=== PATIENT | male | born 1940 | race Caucasian/White ===

== ENCOUNTER → 2016-10-13 | Day surgery (SDC) | payer BC ==
[2016-10-13] VITALS (8 sets, daily range): BP systolic 126–167; BP diastolic 85–110; PULSE 85–110; TEMP 36.7; O2SAT 86–100; Ht 177.8 cm; Wt 82.0 kg
[~2016-10-13] VITALS: Ht 177.8 cm; Wt 82.0 kg
[~2016-10-13] MED LIST: APR50 PO; ASPI81TA28 PO; CYAN10004 PO; DOCU100C31 PO; FINA5TAB PO; FLNIN NAE; LNX25 PO; LOSA50TA6 PO; METO1TAB69 PO; MULT-188 PO; NAPR1CAP7 PO; OMEP20TA PO; POLY335025 PO; RIVA1TAB4 PO; SIMV10TA2 PO
--- NOTE | 2016-10-13 07:19 | History & Physical Bridge Note ---
H&P Re-Evaluation Bridge Note: I have examined the patient, reviewed the History & Physical and in the interval since the performance of the History & Physical I have noted the following changes of clinical significance: Patient started on dronedarone and stopped digoxin.
--- NOTE | 2016-10-13 07:39 | Discharge Instructions ---
Discharge Instructions Date of Service Oct 13, 2016. Admission Reason for Admission: A Fib * To Do W/Anesthesia Discharge Discharge Diagnosis / Problem: Atrial fibrillation Discharge Goals Goal(s): Improve function Activity Recommendations Activity Limitations: resume your previous activity Lifting Limitations: none Exercise/Sports Limitations: none May Resume Sexual Activity: when tolerated Shower/Bathe: no limitations Driving or Machine Use: resume 1 day after discharge . Current Hospital Diet Patient's current hospital diet: Discharge Diet Recommended Diet: Regular Diet, Low Sodium Diet (2gm Na) Fluid Restriction: None Pending Studies Studies pending at discharge: no Medical Emergencies . Who to Call and When: Medical Emergencies: If at any time you feel your situation is an emergency, please call 911 immediately. . Non-Emergent Contact Non-Emergency issues call your: Sheet Metal Apprentice . . "Provider Documentation" section prepared by Gee Stevens. VTE Core Measure Inpt VTE Proph given/why not?: Other Anticoagulation
--- NOTE | 2016-10-13 07:43 | Anesthesiology Progress Note ---
Anesthesia Post Op Note Date & Time Oct 13, 2016 at 07:43 Vital Signs Pain Intensity: 0 Vital Signs Past 12 Hours Date Time Temp Pulse Resp B/P Pulse Ox O2 Delivery O2 Flow Rate FiO2 10/13/16 07:34 110 16 126/85 99 Nasal Cannula 4 10/13/16 07:34 82 16 119/79 96 Room Air 10/13/16 07:30 110 16 134/87 99 Nasal Cannula 4 10/13/16 07:27 110 16 145/90 99 Nasal Cannula 4 10/13/16 07:26 110 16 145/90 99 Nasal Cannula 4 10/13/16 07:25 110 16 145/90 99 Nasal Cannula 4 10/13/16 07:23 110 16 167/110 99 Nasal Cannula 4 10/13/16 07:11 36.7 100 16 139/95 100 Nasal Cannula 4 Notes Mental Status: alert / awake / arousable, participated in evaluation Pt Amnestic to Procedure: Yes Nausea / Vomiting: adequately controlled Pain: adequately controlled Airway Patency, RR, SpO2: stable & adequate BP & HR: stable & adequate Hydration State: stable & adequate Anesthetic Complications: no major complications apparent
--- NOTE | 2016-10-13 08:56 | CARDIOVERSION ---
DATE OF OPERATION: 10/13/2016 PROCEDURE PERFORMED: Electrocardioversion. STAFF GENERAL DUTY NURSE: Dr. Kamar Stevens. INDICATION: Mr. Kimberlyn Ventura is a 76-year-old gentleman who was diagnosed with atrial fibrillation several months ago. He had 1 prior attempt at cardioversion which was unsuccessful. The patient has recently been started on dronedarone in the hopes that this would improve efficacy. PROCEDURE IN DETAIL: The patient was informed of risks, benefits and alternatives to the intended procedure. He understood such and wished to proceed. He was taken to the cardiac catheterization suite in fasting state. General anesthetic was subsequently administered by the anesthesiology service and once appropriately anesthetized the patient underwent initial cardioversion with 200 joules. This returned him to sinus rhythm but he quickly reverted back to atrial fibrillation. Two additional attempts to convert him back to sinus rhythm were unsuccessful at 360 joules. Following the procedure the patient was conscious without evidence of complication. IMPRESSION: Cardioversion to normal sinus rhythm with early return to atrial fibrillation. I attest to the content of the Intraoperative Record and any orders documented therein. Any exceptio ns are noted below.
--- NOTE | 2017-03-13 18:35 | Procedure Note ---
Procedure Note Date of Service October 13, 2016. Procedure Note Procedure performed: Electrical cardioversion Staff medical office worker: Indication: Persistent and symptomatic atrial fibrillation Procedure in detail The patient was informed of the risks benefits and alternatives to the intended procedure. He is brought to the cardiac catheterization holding area. A general anesthetic was administered by the Anesthesiology Service. Once appropriately anesthetized, the patient underwent cardioversion using a biphasic waveform. Patient was noted to be neurologically intact subsequent to the procedure there were no immediate complications. Impression: Successful cardioversion from atrial fibrillation normal sinus rhythm
== END | disposition home or self-care (01) ==
LOC: C.CATH 06:20
PROVIDERS: ATTEND Internal Medicine Clinical Cardiac Electrophysiology
DX: I48.91 Unspecified atrial fibrillation (principal)

== ENCOUNTER → 2016-11-30 | Outpatient (CLI) | payer BC ==
[~2016-11-30] MED LIST changes: +AMIO200T4 PO; +CALC600T9 PO; +FLUT50SP37 NAE; -LNX25 PO; +METO100T44 PO; -METO1TAB69 PO; +NAPR1TAB9 PO; +POLY335019 PO; +VITAMIN B12 PO
[2016-11-30 11:20] LABS: BASO % 0.4 %; BASO ABS # 0.03 K/uL (0-0.2); COMPLETE YES; EOS % 1.2 %; HEMATOCRIT 52.1 % (42-52); IG% 0.1 %; LYMPH ABS # 1.83 K/uL (1.2-3.4); MEAN CELL VOLUME 93.5 fL (80-100); MEAN CORPUSCULAR HEMOGLOBIN 31.1 pg (25-34); MEAN CORPUSCULAR HGB CONC 33.2 g/dl (32-36); MEAN PLATELET VOLUME 10.9 fL (7.4-10.4); MONO % 9.7 %; NEUT % 63.6 %; PLATELET COUNT 240 K/uL (130-400); RED BLOOD COUNT 5.57 M/uL (4.7-6.1); WHITE BLOOD COUNT 7.31 K/uL (4.8-10.8)
[2016-11-30 11:39] LABS: ALT/SGPT 29 U/L (12-78); AST/SGOT 25 U/L (15-37); BLOOD UREA NITROGEN 19 mg/dl (7-18); BUN/CREATININE RATIO 15.5 (10-20); CARBON DIOXIDE 31 mmol/L (21-32); CHLORIDE 101 mmol/L (98-107); CHOLESTEROL 155 mg/dl (0-200); GLUCOSE 94 mg/dl (70-99); POTASSIUM 4.4 mmol/L (3.5-5.1); SODIUM 136 mmol/L (136-145)
[2016-11-30 11:42] LABS: CHOLESTEROL/HDL RATIO 2.8; HDL CHOLESTEROL 56 mg/dl; LDL CHOLESTEROL CALCULATED 89 mg/dl; TRIGLYCERIDES 52 mg/dl (0-150); VERY LOW DENSITY LIPOPROT CALC 10 mg/dl
[2016-11-30 11:43] LABS: ESTIMATED AVERAGE GLUCOSE 120 mg/dl; HA1C FLAG Normal (Normal)
[2016-11-30 11:44] LABS: CALCIUM 9.5 mg/dl (8.5-10.1)
--- NOTE | 2016-12-13 11:50 | CODING QUERY MEDICAL NECESSITY ---
SUPPORTING DIAGNOSIS NEEDED Dr. Sullivan, A supporting diagnosis is required for the test/procedure performed on this patient in order for us to be reimbursed by the patient's insurance. Please provide a supporting diagnosis for the following test/procedure listed below next to the test name along with your signature. *If there is no additional diagnosis for this patient that would support the following test/procedure please document that below next to the test/procedure. Test(s)/Procedure(s) that require a supporting diagnosis: * ([id number]) VITAMIN D ASSAY DIAGNOSIS: * ([id number]) B12 VITAMIN LEVEL DIAGNOSIS: DATE OF SERVICE: 11/30/16 Provider Signature: Date: Thank you Demarcus Parks [facility] Information Management Once completed, please kindly fax back to [phone] For questions please call [phone]
== END | disposition home or self-care (01) ==
LOC: C.LABBC 07:18
PROVIDERS: ATTEND Internal Medicine
DX: R53.83 Other fatigue (principal); R73.9 Hyperglycemia, unspecified; E78.00 Pure hypercholesterolemia, unspecified; E55.9 Vitamin D deficiency, unspecified

== ENCOUNTER → 2017-06-04 | Outpatient (CLI) | payer BC ==
[2017-06-04 10:46] LABS: BASO % 0.3 %; BASO ABS # 0.02 K/uL (0-0.2); COMPLETE YES; EOS % 1.4 %; HEMATOCRIT 52.3 % (42-52); IG% 0.2 %; LYMPH % 30.8 %; LYMPH ABS # 1.79 K/uL (1.2-3.4); MEAN CELL VOLUME 95.3 fL (80-100); MEAN CORPUSCULAR HEMOGLOBIN 32.4 pg (25-34); MEAN PLATELET VOLUME 10.7 fL (7.4-10.4); MONO % 8.4 %; NEUT % 58.9 %; PLATELET COUNT 195 K/uL (130-400); RED BLOOD COUNT 5.49 M/uL (4.7-6.1); WHITE BLOOD COUNT 5.82 K/uL (4.8-10.8)
[2017-06-04 10:54] LABS: ALT/SGPT 37 U/L (12-78); AST/SGOT 34 U/L (15-37); BLOOD UREA NITROGEN 20 mg/dl (7-18); BUN/CREATININE RATIO 17.5 (10-20); CALCIUM 9.1 mg/dl (8.5-10.1); CARBON DIOXIDE 34 mmol/L (21-32); CHLORIDE 101 mmol/L (98-107); CREATININE 1.15 mg/dl (0.60-1.40); GLUCOSE 98 mg/dl (70-99); POTASSIUM 4.4 mmol/L (3.5-5.1); SODIUM 137 mmol/L (136-145)
[2017-06-04 11:04] LABS: ALB/GLOB RATIO 1.1 (0.9-2); ALKALINE PHOSPHATASE 45 U/L (45-117)
== END | disposition home or self-care (01) ==
LOC: C.LABBC 08:19
PROVIDERS: ATTEND Internal Medicine
DX: I48.91 Unspecified atrial fibrillation (principal); E55.9 Vitamin D deficiency, unspecified

== ENCOUNTER → 2017-06-27 | Day surgery (SDC) | payer BC ==
[2017-06-07 08:49] VITALS: Ht 177.8 cm; Wt 77.3 kg
[~2017-06-27] VITALS: Ht 177.8 cm; Wt 77.3 kg
[~2017-06-27] MED LIST changes: +500ML BSS 0.3ML EPI 1:1000PF IRRIG ONE; +ACETAMINOPHEN 325 MG TAB PO PRN; +AMVISC PLUS 0.8ML SYRINGE INT OCU ONE; -APR50 PO; -ASPI81TA28 PO; +ATROPINE SULFATE 0.1 MG/ML 5ML SYR IV PRN; +AcetaZOLAMIDE 250 MG TAB PO SCH; +BETAXOLOL HCL 0.25% OP SUSP PER DROP CHARGE OPR SCH; +BRIMONIDINE TART 0.2% OP SOLN PER DROP CHARGE ONE; +BSS FLUSH ONE; -CYAN10004 PO; +ENDOCOAT 0.85ML SYRINGE INT OCU ONE; +EpHEDrine SULFATE INJ 50 MG/ML AMP IV PRN; +EpINEphrine INJ 1MG/ML AMP 1 MG/ML AMP ONE; -FLNIN NAE; +LACTATED RINGER'S 1000ML 500 ML IV SCH; +LIDOCAINE 4% OP SOLN DROP CHARGE ONE; +LIDOCAINE 4% OP SOLN DROP CHARGE OPR SCH; +LIDOCAINE HCL 1% MPF 2 ML VIAL ONE; -METO100T44 PO; +MIDAZOLAM HCL 1 MG/ML 2ML VIAL ONE; +MIX: 4ML BSS 1ML EPI 1:1000 PF INSTIL ONE; +MOXIFLOXACIN OPH SOLN PER DROP CHARGE ONE; -NAPR1CAP7 PO; +OCUCOAT 1 ML SOLN IO ONE; -POLY335025 PO; +POVIDONE-IODINE OP SOLN 30 ML BTL ONE; +PROPARACAINE 0.5% OP SOLN PER DROP CHARGE OPR SCH; +TOBRAMYCIN/DEXAMETHASONE OPH OINT PER APPLN CHARGE ONE
--- NOTE | 2017-06-27 09:22 | History & Physical Bridge - [place] ---
H&P Re-Evaluation Bridge Note: I have examined the patient, reviewed the History & Physical and in the interval since the performance of the History & Physical I have noted the following changes of clinical significance: No changes noted
[2017-06-27] MEDS: PHENYLEPHRINE HCL 2.5% OP SOLN PER DROP CHARGE OPR SCH ×2 (09:25→09:30)
[2017-06-27] MEDS: TROPICAMIDE 1% OP SOLN PER DROP CHARGE OPR SCH ×2 (09:26→09:31)
[2017-06-27] MEDS: CYCLOPENTOLATE HCL 1% OP SOLN PER DROP CHARGE OPR SCH ×2 (09:27→09:32)
[2017-06-27] MEDS: MOXIFLOXACIN OPH SOLN PER DROP CHARGE OPR SCH ×2 (09:28→09:38)
--- NOTE | 2017-06-27 10:17 | Discharge Instructions-SurgCtr ---
Discharge Instructions Date of Service Jun 27, 2017. Visit Reason for Visit: Cataract Right Eye Discharge Discharge Diagnosis / Problem: lens implant right eye Discharge Goals Goal(s): Improve function Activity Recommendations Activity Limitations: resume your previous activity Lifting Limitations: no more than 10 pounds Exercise/Sports Limitations: gradually increase as tolerated May Resume Sexual Activity: when tolerated Shower/Bathe: tomorrow Driving or Machine Use: resume 1 day after discharge Anesthesia . Post Anesthesia Instructions: If you have had General Anesthesia or IV Sedation: * Do not drive today. * Resume driving when surgeon permits. * Do not make important decisions or sign legal documents today. * Call surgeon for: 1. Temperature elevations greater than 101 degrees F. 2. Uncontrollable pain. 3. Excessive bleeding. 4. Persistent nausea and vomiting. 5. Medication intolerance (nausea, vomiting or rash). * For nausea and vomiting use only clear liquids such as: tea, soda, bouillon until nausea subsides, then gradually increase diet as tolerated. * If you have any concerns or questions, call your surgeon's office. If physician is unavailable and it is an emergency, call 911 or go to the nearest emergency room. . Instructions / Follow-Up Instructions / Follow-Up ACTIVITY RECOMMENDATIONS: * Light activities. * Mild irritation and blurred vision are common for the first few days. * You may walk outside, read, watch television. * Redness around the white part of the eye is common. MEDICATIONS: Resume previous medications unless instructed otherwise by your surgeon. * Take white Diamox (Acetazolamide) tablet at 1 pm today. Start all eye drops at 1 pm today: * Eye drops (today and tomorrow): Prednisone - one drop in operative eye every 3 hours while awake Ofloxacin - one drop in operative eye every 3 hours while awake Prolensa - one drop in operative eye once daily SPECIAL CARE INSTRUCTIONS: * Tape plastic shield over eye to sleep at night. Call your doctor at with any concerns or problems. FOLLOW UP VISIT: Follow-up with Dr Hurst at [place] office as scheduled. Diet Recommendations Home Diet: no limitations Procedures Procedures Performed: cataract extraction with lens implant Pending Studies Studies pending at discharge: no Medical Emergencies . Who to Call and When: Medical Emergencies: If at any time you feel your situation is an emergency, please call 911 immediately. . Non-Emergent Contact Non-Emergency issues call your: Fraud Examiner Call Non-Emergent contact if: your pain is not controlled [phone] . . "Provider Documentation" section prepared by Fabian Hurst. .
--- NOTE | 2017-06-27 10:19 | [facility] Operative Report ---
Operative Report Date of Service Jun 27, 2017. Operative Report 1. PREOPERATIVE DIAGNOSIS: Senile nuclear cataract, right eye. 2. POSTOPERATIVE DIAGNOSIS: Senile nuclear cataract, right eye. 3. PROCEDURE: Phacoemulsification of right cataract with posterior chamber lens implant, type [employer], model MX60, power +22.0 diopters. ANESTHESIA: Local standby. SURGEON: Dr. Hurst. COMPLICATIONS: None. OPERATING TIME: 10 minutes. 4. OPERATION AND FINDINGS: DESCRIPTION OF PROCEDURE: The right pupil was dilated. The anesthetic was administered using a topical technique. The right eye was prepped and draped. A speculum was placed. A clear corneal incision was formed. The chamber was filled with Amvisc Plus and Endocoat. Epinephrine solution was used. A paracentesis was placed. A capsulorrhexis was performed. The nucleus was hydrodissected. A dense lens was removed with phacoemulsification. Time was 7.24 seconds. The aspiration unit was used to remove the cortex. The capsule was filled with Amvisc Plus. The lens implant was folded and placed into the capsule. The incision was hydrated. The Amvisc was aspirated. The wound was secure. The chamber was deep. The pupil was round. Brimonidine, TobraDex ointment and Vigamox solution were placed. The speculum was removed. The patient was returned to the Recovery Room in stable condition. I attest to the content of the Intraoperative Record and any orders documented therein. Any exceptions are noted below. The scribe's documentation has been prepared in my presence, under my direction and personally reviewed by me in its entirety. I confirm that the note above accurately reflects all work, treatment, procedures, and medical decision making performed by me. I personally scribed for Fabian Hurst M.D. ([email or web address]) on 06/27/17 at 10:19. Electronically submitted by Raya Douglas (JOSE ANTONIO).
[2017-06-27 10:23] VITALS: TEMP 36.6
--- NOTE | 2017-06-27 10:28 | Anesthesia Progress Nt - [facility] ---
Anesthesia Post Op Note Date & Time Jun 27, 2017 at 10:28 Vital Signs Pain Intensity: 0 Vital Signs Past 12 Hours Date Time Temp Pulse Resp B/P (MAP) Pulse Ox O2 Delivery O2 Flow Rate FiO2 06/27/17 10:23 36.6 61 16 143/87 (105) 99 Room Air 06/27/17 09:19 36.6 62 16 146/85 (105) 98 Room Air Notes Mental Status: alert / awake / arousable, participated in evaluation Pt Amnestic to Procedure: Yes Nausea / Vomiting: adequately controlled Pain: adequately controlled Airway Patency, RR, SpO2: stable & adequate BP & HR: stable & adequate Hydration State: stable & adequate Anesthetic Complications: no major complications apparent
[2017-06-27 10:48] VITALS: BP 151/88; PULSE 56; O2SAT 98
== END | disposition home or self-care (01) ==
LOC: X.SURG 08:43
PROVIDERS: ATTEND Specialist
DX: H25.11 Age-related nuclear cataract, right eye (principal); I10 Essential (primary) hypertension

== ENCOUNTER 2017-09-06 13:10 | Emergency (ER) | payer BC ==
[~2017-09-06] VITALS: Ht 180.3 cm; Wt 83.3 kg
[~2017-09-06 13:10] MED LIST changes: -500ML BSS 0.3ML EPI 1:1000PF IRRIG ONE; -ACETAMINOPHEN 325 MG TAB PO PRN; -AMVISC PLUS 0.8ML SYRINGE INT OCU ONE; -ATROPINE SULFATE 0.1 MG/ML 5ML SYR IV PRN; -AcetaZOLAMIDE 250 MG TAB PO SCH; -BETAXOLOL HCL 0.25% OP SUSP PER DROP CHARGE OPR SCH; -BRIMONIDINE TART 0.2% OP SOLN PER DROP CHARGE ONE; -BSS FLUSH ONE; -ENDOCOAT 0.85ML SYRINGE INT OCU ONE; -EpHEDrine SULFATE INJ 50 MG/ML AMP IV PRN; -EpINEphrine INJ 1MG/ML AMP 1 MG/ML AMP ONE; -LACTATED RINGER'S 1000ML 500 ML IV SCH; -LIDOCAINE 4% OP SOLN DROP CHARGE ONE; -LIDOCAINE 4% OP SOLN DROP CHARGE OPR SCH; -LIDOCAINE HCL 1% MPF 2 ML VIAL ONE; -MIDAZOLAM HCL 1 MG/ML 2ML VIAL ONE; -MIX: 4ML BSS 1ML EPI 1:1000 PF INSTIL ONE; -MOXIFLOXACIN OPH SOLN PER DROP CHARGE ONE; -OCUCOAT 1 ML SOLN IO ONE; -POVIDONE-IODINE OP SOLN 30 ML BTL ONE; -PROPARACAINE 0.5% OP SOLN PER DROP CHARGE OPR SCH; -TOBRAMYCIN/DEXAMETHASONE OPH OINT PER APPLN CHARGE ONE
[2017-09-06 13:12] VITALS: TEMP 36.7; Ht 180.3 cm; Wt 83.3 kg
[2017-09-06] MEDS ORDERED: GELATIN SPONGE 12-7MM ONE (13:25)
[2017-09-06] MEDS ORDERED: AMOX875T PO (13:39)
[2017-09-06] MEDS ORDERED: CYAN10005 PO (13:46)
[2017-09-06 13:58] VITALS: BP 140/76; PULSE 64; O2SAT 94
--- NOTE | 2017-09-06 14:06 | EMERGENCY ROOM VISIT NOTE ---
History First contact with patient: 13:20 Chief Complaint: LACERATION/CUT (SUT/DERMABOND) Stated Complaint: FINGER LACERATION Nursing Triage Summary: laceration to left thumb pt does not know cause pt noticed lac yesterday morning pt on Xarelto and reports cont bleeding, pcp said "it looked deep, go to ER" History of Present Illness The patient is a 77 year old male who presents to the Emergency Room with complaints of laceration to his left thumb that he noticed yesterday morning. The patient is unsure of the mechanism, but states his thumb continues to bleed. He is on Xarelto for his heart. He believes his tetanus is up-to-date. He went to his primary care physician's office today, and was referred here due to the laceration. The patient is also reporting some sore throat and cough symptoms the past few days. He has not had fever or chills. No chest pain, chest tightness, or shortness of breath. He rates his current discomfort a 0/10. Review of Systems More than 10 systems were reviewed and otherwise negative with the exception of history of present illness. Past Medical/Surgical History History of cardiac disease Family History No pertinent family history Social History Smoking Status: Never Smoker Housing Status: lives with family Current/Historical Medications Scheduled Amiodarone Hcl (Cordarone), 200 MG PO QAM Amoxicillin & Pot Clavulanate (Augmentin 875-125 mg), 1 TAB PO BID Calcium Carbonate-Vitamin D (Calcium + D), 1 TAB PO BID Cyanocobalamin (Vitamin B-12), 1,000 MCG PO DAILY Docusate Sodium (Docusate Sodium), 1 CAP PO BID Finasteride (Proscar), 5 MG PO QPM Fluticasone Propionate (Nasal) (Clarispray), 2 SPRAY TREVON QAM Losartan Potassium (Cozaar), 50 MG PO BID Multiple Vitamins W/ Minerals (Ocuvite), 1 TAB PO QAM Omeprazole (Omeprazole), 20 MG PO QAM Polyethylene Glycol 3350 (Miralax), 17 GM PO QAM Rivaroxaban (Xarelto), 20 MG PO QPM Simvastatin (Zocor), 10 MG PO QPM Scheduled PRN Naproxen (Aleve), 220 MG PO DAILY PRN for Pain Physical Exam Vital Signs Date Time Temp Pulse Resp B/P (MAP) Pulse Ox O2 Delivery O2 Flow Rate FiO2 09/06/17 13:12 36.7 70 20 161/83 98 Room Air Physical Exam VITALS: Vitals are noted on the nurse's note and reviewed by myself. Vital signs stable. GENERAL: Well-developed, well-nourished, white male, who is in no acute distress and resting comfortably. Patient is cooperative with the examination. HEAD: Normocephalic atraumatic. EARS: External ear normal. External auditory canals clear, tympanic membranes pearly avila without erythema or effusion bilaterally. EYES: Pupils equal round and reactive to light and accommodation. Conjunctivae without injection, sclerae without icterus. Extraocular movements intact. NOSE: Patent, turbinates without inflammation or discharge. MOUTH: Mucous membranes moist. Tonsils are not enlarged. Pharynx without erythema, blood, or exudate. Uvula midline. Airway patent. NECK: Supple without nuchal rigidity. No lymphadenopathy. No thyromegaly. Cervical spine is nontender. HEART: Regular rate and rhythm without murmurs gallops or rubs. LUNGS: Generally clear although faint wheezing is appreciated in the left side lung field MUSCULOSKELETAL: There is a small 7 mm avulsion type laceration to the pad of the left thumb. This is ovoid in shape and is with mild persistent bleeding. The patient is full sensation and range of motion of the digit. Medical Decision & Procedures Medications Administered Medications (Trade) Dose Ordered Sig/Abe Route Start Time Stop Time Status Last Admin Dose Admin Gelatin (Surgifoam Sponge 12-7MM (SMALL)) 1 ea STK-MED ONCE .ROUTE 09/06/17 13:25 09/06/17 13:26 DC 09/06/17 13:25 1 EA Procedure Laceration repair. Patient elects to have their laceration repaired. Verbal consent was obtained to perform the procedure. There is an abundance of materials available for the procedure. Patient is not allergic to latex. Using sterile technique the wound was cleaned with Betadine. The wound was irrigated with sterile saline. The wound was explored and there were no deep structures injured such as tendons, bone, or significant blood vessels. The laceration was repaired using Gelfoam and a pressure dressing. Hemostasis was achieved. Patient tolerated the procedure well without complications. Blood loss was negligible. ED Course Physical exam and history were performed. Nursing notes, EMR, and Medication List were personally reviewed. Patient appears to have an avulsion type laceration to his thumb. This was cleansed, explored, and repaired utilizing a Gelfoam dressing. The patient does have some wheezing on the left side lung rizzo, and is reporting a mild cough and sore throat for the past few days. He does not otherwise appear toxic. He has had the open wound on his thumb for greater than 24 hours, and will need antibiotic coverage regardless. I will start him on Augmentin and covering his wheezing and skin needs. The patient is to follow with his primary care physician for further care and management. He was otherwise invited back to the ER with any new, worsening, or concerning symptoms The chart was completed utilizing [employer] Speech Voice Recognition Software. Grammatical errors, random word insertions, pronoun errors, and incomplete sentences are an occasional consequence of this system due to software limitations, ambient noise, and hardware issues. Any formal questions or concerns about the content, text, or information contained within the body of this dictation should be directly addressed to the provider for clarification. . Medical Decision Differential diagnosis includes, but is not limited to: Laceration, abrasion, foreign body, sinusitis, pneumonia, bronchitis, URI, flu, and others Blood Pressure Screening Patient's blood pressure: Elevated blood pressure Blood pressure disposition: Elevated BP felt to be situational Impression Primary Impression: Avulsion of skin of finger Additional Impression: Wheezing-associated respiratory infection Departure Information Dispostion Home / Self-Care Condition GOOD Prescriptions Amoxicillin & Pot Clavulanate (Augmentin 875-125 mg) 1 Tab Tab 1 TAB PO BID for 7 Days, #14 TAB Prov: Cruzito Sewell PA-C 09/06/17 Forms HOME CARE DOCUMENTATION FORM, IMPORTANT VISIT INFORMATION Patient Instructions My [facility] Additional Instructions You were seen and evaluated today on an emergency basis only. This is not a substitute for, or an effort to provide, complete comprehensive medical care. It is not possible to recognize and treat all injuries or illnesses in a single emergency department visit. For this reason it is recommended that you followup with your primary care physician next week with any ongoing or persistent symptoms. Replace the Gelfoam dressing for the next 3 days. Try not to get this area wet. Amoxicillin Clavulanate (Augmentin) 875mg: Take one pill twice daily for 7 days for your infection. All antibiotics can cause diarrhea. If this occurs and you feel worse or it does not resolve in 1-2 days follow up with your doctor or return to the Emergency Department as this could be signs of serious underlying problems. Any medication can cause an allergic reaction, stop the pills immediately and return to the ER for rash, hives, breathing difficulties, or swelling. You are welcome to return to the emergency department anytime with new, worsening, or concerning symptoms. Problem Qualifiers
== END 2017-09-06 14:08 | disposition home or self-care (01) ==
LOC: C.EDB 13:11 → C.EDD 14:08
DX: S61.012A Laceration without foreign body of left thumb without damage to nail, initial encounter (principal); X58.XXXA Exposure to other specified factors, initial encounter; J06.9 Acute upper respiratory infection, unspecified; Z79.01 Long term (current) use of anticoagulants; Z79.899 Other long term (current) drug therapy

== ENCOUNTER → 2017-12-03 | Outpatient (CLI) | payer BC ==
[~2017-12-03] MED LIST changes: +CYAN10005 PO; -VITAMIN B12 PO
[2017-12-03 10:46] LABS: ALT/SGPT 34 U/L (12-78); AST/SGOT 35 U/L (15-37); BLOOD UREA NITROGEN 23 mg/dl (7-18); CARBON DIOXIDE 32 mmol/L (21-32); CHOLESTEROL 167 mg/dl (0-200); CREATININE 1.28 mg/dl (0.60-1.40); GLUCOSE 101 mg/dl (70-99); SODIUM 134 mmol/L (136-145)
[2017-12-03 10:56] LABS: LDL CHOLESTEROL CALCULATED 83 mg/dl
[2017-12-03 11:14] LABS: HEMOGLOBIN A1C 5.6 % (4.5-5.6)
== END | disposition home or self-care (01) ==
LOC: C.LABBC 08:04
PROVIDERS: ATTEND Internal Medicine
DX: E78.00 Pure hypercholesterolemia, unspecified (principal); R73.9 Hyperglycemia, unspecified; N40.1 Benign prostatic hyperplasia with lower urinary tract symptoms; I48.91 Unspecified atrial fibrillation; E55.9 Vitamin D deficiency, unspecified

== ENCOUNTER 2024-05-18 09:31 | Inpatient (IN) ==
--- NOTE | 2024-05-18 10:11 | Emergency Department Note ---
History of Present Illness General Chief complaint: TIA Symptoms Stated complaint: R SIDE OF BODY GOING NUMB, SLURRED SPEECH Time Seen by Provider: 05/18/24 09:44 Source: patient, family (Son who is at the bedside), RN notes reviewed and old records reviewed (01/29/24-primary care office visit for wellness) Mode of arrival: ambulatory Limitations: no limitations History of Present Illness Maximum Pain Intensity: 0 This patient is an 84-year-old male comes in with worsening of weakness. He was seen yesterday and seem to be more of just generalized diffuse weakness. He said actually 2 days ago he had weakness of his right arm that lasted briefly and since then he is felt nauseated woozy and off he did have some teeth pulled recently he is on Xarelto he did not stop the Xarelto and has been taking it in fact took his morning dose already today his son feels he is more weak since he saw him yesterday evening so sometime overnight it started. He felt that he had a little bit of a droop on the right side of his face and the patient feels like his right leg was giving out and also the right arm the right arm does feel better now. He has no headache no chest pain no shortness of breath no back pain no dysuria although he does have some frequency it sounds like at times. Home Medications Medication Instructions Recorded Confirmed Type calcium 600 mg (as 1 tab PO DAILY 02/26/19 05/18/24 History carbonate)-vitamin D3 5 mcg (200 unit) tablet polyethylene glycol 3350 17 17 gm PO DAILY PRN constipation 03/04/19 05/18/24 History gram/dose oral powder (ClearLax) docusate sodium 100 mg tablet 100 mg PO DAILY #180 tabs 12/15/21 05/18/24 History rivaroxaban 20 mg tablet (Xarelto) 20 mg PO DAILY #90 tabs 11/05/23 05/18/24 Rx amlodipine 5 mg tablet 5 mg PO DAILY #90 tabs 01/17/24 05/18/24 Rx finasteride 5 mg tablet 5 mg PO DAILY #90 tabs 02/04/24 05/18/24 Rx omeprazole 20 mg capsule,delayed 20 mg PO DAILY #90 caps 03/03/24 05/18/24 Rx release simvastatin 10 mg tablet 10 mg PO QPM #90 tabs 05/01/24 05/18/24 Rx acetaminophen 500 mg tablet 500 mg PO TID PRN Pain/Fever 05/18/24 05/18/24 History fluticasone propionate 50 1 - 2 spray intranasal DAILY 05/18/24 05/18/24 History mcg/actuation nasal spray,suspension losartan 50 mg tablet See Rx Instructions .Route .COMPLEX 05/18/24 05/18/24 History metoprolol succinate 25 mg 50 mg PO DAILY 05/18/24 05/18/24 History tablet,extended release 24 hr [id number] 250 mg-dha 90 1 cap PO DAILY 05/18/24 05/18/24 History mg-epa 160 [id number] capsule (Ocuvite Adult 50 Plus) Allergies Allergy/AdvReac Type Severity Reaction Status Date / Time iodine Allergy Mild Rash Verified 05/18/24 11:49 Past Med/Surg History Problem List (Updated 05/18/24 @ 15:16 by Dayron Bush MD) A-fib (Acute) Current use of retirement anticoagulation (Acute) Stroke-like symptoms (Acute) Weakness (Acute) Weakness (Acute) Tendonitis of upper biceps tendon of right shoulder Right rotator cuff tendonitis 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 Paroxysmal atrial fibrillation Right shoulder pain Chronic SI joint pain Elevated TSH Hyponatremia Current use of proton pump inhibitor Vitamin D deficiency (Acute) Mild mitral regurgitation (Acute) Hypercholesterolemia (Acute) Essential hypertension (Acute) Nonerosive esophageal reflux disease (Acute) Enlarged prostate with lower urinary tract symptoms (LUTS) (Acute) Atrial fibrillation with normal ventricular rate (Acute) Sensorineural hearing loss of left ear (Acute) Exposure to COVID-19 virus Hyperglycemia Anxiety Surgical History History of cardiac radiofrequency ablation Family History Father Cerebral atherosclerosis Coronary atherosclerosis Brother Lung cancer Denies family history of Ovarian cancer Prostate cancer Myocardial infarction Breast cancer Colon cancer high risk Social History Smoking Status: Never smoker Second Hand Exposure: No; Do You Dip or Chew Tobacco: No; Hx Alcohol Use: Yes Alcohol type: hard liquor Hx Substance Use: No Preferred Language: Arabic Communication Ability: Unable Visual Impairment: No Limitations Hearing Ability: Use of Hearing Aid Religion Professor Required: No Beliefs That Will Affect Care: None marital status: Current Living Situation: Alone current occupational status: retired Other Information That Helps Us Care for You: No Feels Safe at Home: Yes Safety Concerns: Feels Safe At This Time Childhood Exposure to Second-Hand Smoke: No Dental Care, Regularly: Yes Physical Activity Frequency: 3-4 Times per Week Seatbelt Use: always Sunscreen Use: Yes Assistive Devices: Glasses and Hearing Aid - Bilateral Review of Systems A total of 10 systems reviewed and were otherwise negative Physical Exam Vital Signs Vital Signs - 24 hr 05/18/24 09:36 05/18/24 09:57 05/18/24 10:09 Temperature 36.0 C L Temperature Source Temporal Artery Scan Pulse Rate 74 71 64 Pulse Rate from SpO2 Sensor 63 Respiratory Rate 20 13 Respiratory Effort / Characteristics Non-Labored Spontaneous Respiratory Depth Normal Respiratory Pattern Regular Blood Pressure 163/96 H Blood Pressure Mean 118 Pulse Oximetry 98 97 Oxygen Delivery Method Room Air Sepsis Recent Fever Within 48 Hours No Sepsis New/Unexplained Change in Mental Status N/A Sepsis Action Taken by Nursing No Action Required 05/18/24 10:52 05/18/24 10:54 05/18/24 11:00 Temperature Temperature Source Pulse Rate 71 Pulse Rate from SpO2 Sensor 71 Respiratory Rate 19 Respiratory Effort / Characteristics Respiratory Depth Respiratory Pattern Blood Pressure 173/115 H 161/99 H Blood Pressure Mean 130 143 Pulse Oximetry 97 Oxygen Delivery Method Sepsis Recent Fever Within 48 Hours Sepsis New/Unexplained Change in Mental Status Sepsis Action Taken by Nursing 05/18/24 11:06 Temperature Temperature Source Pulse Rate 70 Pulse Rate from SpO2 Sensor 71 Respiratory Rate 22 Respiratory Effort / Characteristics Respiratory Depth Respiratory Pattern Blood Pressure Blood Pressure Mean Pulse Oximetry 97 Oxygen Delivery Method Sepsis Recent Fever Within 48 Hours Sepsis New/Unexplained Change in Mental Status Sepsis Action Taken by Nursing General: Well developed well nourished ooj-spj-kcuzktnzy older male who appears in no acute distress, breathing comfortably on room air. Normal speech although he feels is slightly slurred. HEENT: Normal cephalic atraumatic. Pupils are equal round and reactive to light. Extraocular movements are intact. Oropharynx is pink with moist mucous membranes. No swelling of the mouth lips or tongue. There may be a slight asymmetry on the right but he does have normal motor of the right face Neck: Supple with a midline trachea. No meningeal signs or stiffness, no JVD or bruits. No Stridor. Chest: Clear to auscultation bilaterally. No wheezes or rhonchi. No increased work of breathing. Heart: Regular rate and rhythm without murmurs or gallops. Abdomen: Soft nontender, nondistended without rebound guarding or rigidity. Extremities: No cyanosis clubbing or edema. No calf tenderness or assymetry Spine/Back. Non tender to palpation. No CVA tenderness Skin: Good turgor without rashes. Neurologic exam: Cranial nerves two through 12 are intact. Motor and sensation are intact and symmetrical throughout. Questionable slight decrease on the right arm and leg but he is able to hold them up against resistance without for 10 seconds. Tremor Course Administered Medications Acetaminophen (Acetaminophen 500 Mg Tab) 1,000 mg PO TID [facility] Stop: 06/17/24 13:59 Last Admin: 05/18/24 13:22 Dose: 1,000 mg Documented By: FAUSTINO Metoprolol Tartrate (Metoprolol Tartrate 1 Mg/Ml Vial) 5 mg IV Q4 USMAN Stop: 06/17/24 12:59 Last Admin: 05/18/24 13:22 Dose: 5 mg Documented By: FAUSTINO Discontinued Medications Aspirin (Aspirin Chew 324 Mg) 324 mg PO NOW STA Stop: 05/18/24 13:01 Last Admin: 05/18/24 13:24 Dose: 324 mg Documented By: FAUSTINO Fluticasone Propionate (Fluticasone Propionate Na Spr 16 Gm Btl) 0 sprays TREVON DAILY [facility]MAN Stop: 06/17/24 12:59 Last Admin: 05/18/24 13:18 Dose: Not Given Documented By: FAUSTINO Ioversol (Optiray 320 125ml) 118 ml IV ONCE ONE Stop: 05/18/24 10:17 Last Admin: 05/18/24 10:17 Dose: 118 ml Documented By: JN Medical Decision Making Differential Diagnosis Stroke, intracranial process, anemia, infection, electrolyte or metabolic abnormality, vascular disease Medical Records Attestation: I reviewed the patient's medical records. Home Medications Current Medication List: was personally reviewed by me Laboratory Data Attestation: I reviewed the patient's lab results. 05/18/24 09:47 05/18/24 09:47 Lab Results 05/18/24 Range/Units 09:47 WBC 9.92 (4.8-10.8) K/ul RBC 5.56 (4.70-6.10) M/uL Hgb 16.7 (14.0-18.0) g/dl Hct 50.3 (42.0-52.0) % MCV 90.5 (80.0-100.0) fL MCH 30.0 (25.0-34.0) pg MCHC 33.2 (32.0-36.0) g/dL RDW Std Deviation 44.2 (36.4-46.3) fL RDW Coeff of Gypsy 13.3 (11.5-14.5) % Plt Count 267 (130-400) K/uL MPV 9.9 (9.4-12.4) fL Immature Gran % (Auto) 0.3 % Neut % (Auto) 76.9 % Lymph % (Auto) 12.7 % [place] % (Auto) 9.4 % Eos % (Auto) 0.2 % Baso % (Auto) 0.5 % Neut # (Auto) 7.63 H (1.40-6.50) K/uL Lymph # (Auto) 1.26 (1.20-3.40) K/uL [place] # (Auto) 0.93 H (0.11-0.59) K/uL Eos # (Auto) 0.02 (0.00-0.50) K/uL Baso # (Auto) 0.05 (0.00-0.20) K/uL Immature Gran # (Auto) 0.03 (0.01-0.20) K/uL PT 13.5 H (9.0-12.0) Seconds INR 1.3 H (0.9-1.1) APTT 36 H (21-31) Seconds PTT Ratio 1.3 Sodium 137 (136-145) mmol/L Potassium 3.9 (3.5-5.1) mmol/L Chloride 101 (98-107) mmol/L Carbon Dioxide 29 (21-32) mmol/L Anion Gap 7 (3-11) BUN 21 (6-23) mg/dl Creatinine 1.17 (0.6-1.4) mg/dl Est Cr Clr Drug Dosing 46.8 ml/min eGFR 60.71 BUN/Creatinine Ratio 17.9 (10-20) Glucose 105 H (70-99(Fasting)) mg/dl Calcium 10.3 (8.6-10.3) mg/dl Magnesium 1.8 (1.7-2.4) mg/dl Total Bilirubin 0.7 (0.2-1.0) mg/dl AST 36 (13-39) U/L ALT 39 (7-52) U/L Alkaline Phosphatase 38 (34-104) U/L Troponin I High Sens 6.5 (0-20) pg/ml Total Protein 7.6 (6.0-8.3) gm/dl Albumin 4.9 (3.4-5.0) gm/dl Globulin 2.7 (2.5-4.0) gm/dl Albumin/Globulin Ratio 1.8 (0.9-2) Imaging Data Attestation: I personally reviewed and interpreted this imaging study as follows: My Impression: CT of the headno hemorrhage or mass effect seen Radiologist's Impression: Head CT 05/18/24 10:05 CT angio neck with con, CT angio head w con, CT head/brain wo con CLINICAL HISTORY: neuro deficit, acute stroke suspected TECHNIQUE: Contiguous axial CT images of the head were acquired from the base of the skull to the vertex without intravenous contrast administration. CT angiography of the head and neck was performed following intravenous administration of iodinated contrast. Coronal and sagittal MIPS were obtained from the axial data set and were submitted for review. Automated dose lowering techniques and/or adjustment according to patient size were utilized for this examination. All measurements were calculated based on NASCET criteria. CT DOSE: 1085.27 mGy.cm Comparison: None available at the time of this dictation. FINDINGS: CT head: There is no acute intracranial hemorrhage or evidence of acute territorial infarction. No shift of the midline structures, mass effect, or extra-axial abnormalities are shown. Small thyroid nodules are seen which do not require follow-up by ACR criteria. CTA Neck: A 3 vessel aortic arch is shown. There is no significant atherosclerotic plaque in the aortic arch or the origins of the innominate, left common carotid, and left subclavian arteries. The common carotid, external carotid, cervical segments of the internal carotid arteries, and the cervical segments of the vertebral arteries are patent without hemodynamically significant stenosis. The left vertebral artery is dominant. CTA Head: The anterior and posterior cerebral circulations are patent. origin of the right posterior cerebral artery is seen. Incidental note is made of a diminutive right A1 segment with anterior circulation supplied from the left. IMPRESSION: 1. No acute intracranial hemorrhage, evidence of acute territorial infarction, or other acute intracranial disease process. 2. No occlusion, hemodynamically significant stenosis, or dissection in the major cervical arteries. 3. No occlusion, hemodynamically significant stenosis, aneurysm, dissection, or arteriovenous malformation in the major intracranial arteries. Assessment of stenosis of the internal carotid arteries is based on NASCET criteria. ACT 112: Negative or not required by law. Electronically signed by: Ashu Arzate M.D. 05/18/2024 10:29 AM Head CTA 05/18/24 10:05 CT angio neck with con, CT angio head w con, CT head/brain wo con CLINICAL HISTORY: neuro deficit, acute stroke suspected TECHNIQUE: Contiguous axial CT images of the head were acquired from the base of the skull to the vertex without intravenous contrast administration. CT angiography of the head and neck was performed following intravenous administration of iodinated contrast. Coronal and sagittal MIPS were obtained from the axial data set and were submitted for review. Automated dose lowering techniques and/or adjustment according to patient size were utilized for this examination. All measurements were calculated based on NASCET criteria. CT DOSE: 1085.27 mGy.cm Comparison: None available at the time of this dictation. FINDINGS: CT head: There is no acute intracranial hemorrhage or evidence of acute territorial infarction. No shift of the midline structures, mass effect, or extra-axial abnormalities are shown. Small thyroid nodules are seen which do not require follow-up by ACR criteria. CTA Neck: A 3 vessel aortic arch is shown. There is no significant atherosclerotic plaque in the aortic arch or the origins of the innominate, left common carotid, and left subclavian arteries. The common carotid, external carotid, cervical segments of the internal carotid arteries, and the cervical segments of the vertebral arteries are patent without hemodynamically significant stenosis. The left vertebral artery is dominant. CTA Head: The anterior and posterior cerebral circulations are patent. origin of the right posterior cerebral artery is seen. Incidental note is made of a diminutive right A1 segment with anterior circulation supplied from the left. IMPRESSION: 1. No acute intracranial hemorrhage, evidence of acute territorial infarction, or other acute intracranial disease process. 2. No occlusion, hemodynamically significant stenosis, or dissection in the major cervical arteries. 3. No occlusion, hemodynamically significant stenosis, aneurysm, dissection, or arteriovenous malformation in the major intracranial arteries. Assessment of stenosis of the internal carotid arteries is based on NASCET criteria. ACT 112: Negative or not required by law. Electronically signed by: Ashu Arzate M.D. 05/18/2024 10:29 AM Neck CTA 05/18/24 10:05 CT angio neck with con, CT angio head w con, CT head/brain wo con CLINICAL HISTORY: neuro deficit, acute stroke suspected TECHNIQUE: Contiguous axial CT images of the head were acquired from the base of the skull to the vertex without intravenous contrast administration. CT angiography of the head and neck was performed following intravenous administration of iodinated contrast. Coronal and sagittal MIPS were obtained from the axial data set and were submitted for review. Automated dose lowering techniques and/or adjustment according to patient size were utilized for this examination. All measurements were calculated based on NASCET criteria. CT DOSE: 1085.27 mGy.cm Comparison: None available at the time of this dictation. FINDINGS: CT head: There is no acute intracranial hemorrhage or evidence of acute territorial infarction. No shift of the midline structures, mass effect, or extra-axial abnormalities are shown. Small thyroid nodules are seen which do not require follow-up by ACR criteria. CTA Neck: A 3 vessel aortic arch is shown. There is no significant atherosclerotic plaque in the aortic arch or the origins of the innominate, left common carotid, and left subclavian arteries. The common carotid, external carotid, cervical segments of the internal carotid arteries, and the cervical segments of the vertebral arteries are patent without hemodynamically significant stenosis. The left vertebral artery is dominant. CTA Head: The anterior and posterior cerebral circulations are patent. origin of the right posterior cerebral artery is seen. Incidental note is made of a diminutive right A1 segment with anterior circulation supplied from the left. IMPRESSION: 1. No acute intracranial hemorrhage, evidence of acute territorial infarction, or other acute intracranial disease process. 2. No occlusion, hemodynamically significant stenosis, or dissection in the major cervical arteries. 3. No occlusion, hemodynamically significant stenosis, aneurysm, dissection, or arteriovenous malformation in the major intracranial arteries. Assessment of stenosis of the internal carotid arteries is based on NASCET criteria. ACT 112: Negative or not required by law. Electronically signed by: Ashu Arzate M.D. 05/18/2024 10:29 AM ECG Data Attestation: I personally reviewed and interpreted this ECG as follows: Indication: + weakness Rate (beats per minute): 69 Rhythm: + normal sinus ECG Intervals/blocks: + Normal QRS, + Normal QT and + Normal CA ECG Dalton: + Normal ECG ST segments: + Normal ST segments ECG Findings: no PACs or no PVCs Comparison ECG Date: from (05/17/2024) Change: no significant change MDM Narrative This patient comes in with increasing weakness. he feels he is more weak on the right side. He may have very subtle findings. I saw him promptly. He is not a thrombolytic candidate given the fact that it he is outside the window as well as he is on a blood thinner with Xarelto and took it already today. It sounds like his symptoms have been worsening over several days and stuttering at times. I am concerned this may be stroke. It does not sound like he likely has a large vessel disease either but I will do the full stroke type workup. IV access was established. multiple blood testing was obtained. he was reassessed frequently. he does have iodine listed as an allergy tells me they thought he might have a skin rash when it was applied but they were not sure. It does not sound likely a true allergy I discussed the risk and benefits of doing a CAT scan he agrees. CAT scans were unremarkable. His workup here looks unremarkable thus far but based on his symptoms I am concerned that he may have had a small stroke. Is nothing to suggest he had a large vessel but it is possible he could have a lacunar considering his symptoms are more right-sided although they seem very subtle. He has had some increasing weakness and difficulty ambulate I do think regardless he needs to come in for further neurologic workup and PT. I did discuss the case at length with Dr. Cruz in consultation he saw the patient ER and will admit/observe the patient for these measures. Continuous cardiac monitoring: Orders placed in EMR for continuous card monitoring: Upon my evaluation patient was noted to be in normal sinus rhythm rate 70 Impression & Plan Weakness, Stroke-like symptoms, Current use of retirement anticoagulation, A-fib Discharge Plan Visit Data Chief Complaint: TIA Symptoms Stated Complaint: R SIDE OF BODY GOING NUMB, SLURRED SPEECH ED Provider: Dayron Bush Discharge Problem: Weakness, Stroke-like symptoms, Current use of retirement anticoagulation, A-fib Patient Disposition: Admitted As Inpatient Discharge Instructions Interventions: ED Discharge Assessment Last Done: 05/18/24 11:49 Discharge Problem: A-fib Qualifiers: Atrial fibrillation type: paroxysmal Qualified Code(s): I48.0 - Paroxysmal atrial fibrillation
[2024-05-18] MEDS: OPTIRAY 320 125ml IV ONE (10:17)
--- NOTE | 2024-05-18 10:32 | CT Scan Report ---
CT angio neck with con, CT angio head w con, CT head/brain wo con CLINICAL HISTORY: neuro deficit, acute stroke suspected TECHNIQUE: Contiguous axial CT images of the head were acquired from the base of the skull to the sil danyell without intravenous contrast administration. CT angiography of the head and neck was performed f ollowing intravenous administration of iodinated contrast. Coronal and sagittal MIPS were obtained fr om the axial data set and were submitted for review. Automated dose lowering techniques and/or adjus tment according to patient size were utilized for this examination. All measurements were calculated based on NASCET criteria. CT DOSE: 1085.27 mGy.cm Comparison: None available at the time of this dictation. FINDINGS: CT head: There is no acute intracranial hemorrhage or evidence of acute territorial infarction. No sh ift of the midline structures, mass effect, or extra-axial abnormalities are shown. Small thyroid nodules are seen which do not require follow-up by ACR criteria. CTA Neck: A 3 vessel aortic arch is shown. There is no significant atherosclerotic plaque in the aor tic arch or the origins of the innominate, left common carotid, and left subclavian arteries. The co mmon carotid, external carotid, cervical segments of the internal carotid arteries, and the cervical segments of the vertebral arteries are patent without hemodynamically significant stenosis. The left vertebral artery is dominant. CTA Head: The anterior and posterior cerebral circulations are patent. origin of the right pos terior cerebral artery is seen. Incidental note is made of a diminutive right A1 segment with anterio r circulation supplied from the left. IMPRESSION: 1. No acute intracranial hemorrhage, evidence of acute territorial infarction, or other acute intrac ranial disease process. 2. No occlusion, hemodynamically significant stenosis, or dissection in the major cervical arteries. 3. No occlusion, hemodynamically significant stenosis, aneurysm, dissection, or arteriovenous malfor mation in the major intracranial arteries. Assessment of stenosis of the internal carotid arteries is based on NASCET criteria. ACT 112: Negative or not required by law. Electronically signed by: Ashu Arzate M.D. 05/18/2024 10:29 AM
[2024-05-18 10:34] LABS: Basophils # (auto) 0.05 K/uL (0.00-0.20); Basophils % (auto) 0.5 %; Eosinophils # (auto) 0.02 K/uL (0.00-0.50); Eosinophils % (auto) 0.2 %; Hematocrit (blood only) 50.3 % (42.0-52.0); Hemoglobin 16.7 g/dl (14.0-18.0); Immature Granulocytes # (auto) 0.03 K/uL (0.01-0.20); Immature Granulocytes % (auto) 0.3 %; Lymphocytes # (auto) 1.26 K/uL (1.20-3.40); Lymphocytes % (auto) 12.7 %; Mean Corpuscular Hgb Conc 33.2 g/dL (32.0-36.0); Mean Corpuscular Volume 90.5 fL (80.0-100.0); Mean Platelet Volume 9.9 fL (9.4-12.4); Monocytes # (auto) 0.93 K/uL (0.11-0.59); Monocytes % (auto) 9.4 %; Neutrophils # (auto) 7.63 K/uL (1.40-6.50); Neutrophils % (auto) 76.9 %; Platelet Count 267 K/uL (130-400); RDW Coefficient of Variation 13.3 % (11.5-14.5); RDW Standard Deviation 44.2 fL (36.4-46.3); Red Blood Count 5.56 M/uL (4.70-6.10); White Blood Count 9.92 K/ul (4.8-10.8)
[2024-05-18 10:47] LABS: Albumin Globulin Ratio 1.8 (0.9-2); Albumin Level 4.9 gm/dl (3.4-5.0); BUN Creatinine Ratio 17.9 (10-20); Bilirubin,Total 0.7 mg/dl (0.2-1.0); Calcium 10.3 mg/dl (8.6-10.3); Creatinine Clr Calc Pharmacy 46.8 ml/min; Globulin 2.7 gm/dl (2.5-4.0); Magnesium 1.8 mg/dl (1.7-2.4); Potassium 3.9 mmol/L (3.5-5.1); Total Protein 7.6 gm/dl (6.0-8.3)
[2024-05-18 10:54] LABS: Troponin I High Sensitivity 6.5 pg/ml (0-20)
[2024-05-18 10:55] LABS: INR 1.3 (0.9-1.1); Partial Thromboplastin Ratio 1.3; Partial Thromboplastin Time 36 Seconds (21-31); Prothrombin Time 13.5 Seconds (9.0-12.0)
--- NOTE | 2024-05-18 11:22 | History & Physical Report ---
Date of Service May 18, 2024 Assessment & Plan (1) Weakness: Plan: Concern for acute CVA patient presents with progressive weakness for over 24-hour duration with concern for right-sided weakness. Initial imaging studies did not show hemorrhage. Patient chronically on Xarelto therapy. Patient was out of the time window for consideration of thrombolytic therapy and stroke alert was not summoned Patient be admitted to our telemetry facility and MRI will be ordered patient failed swallowing evaluation Emergency Department present patient is having fluctuating symptoms of dose oral aspirin will be given patient started on Plavix on 05/19. Xarelto is currently on hold with low threshold to restart. Patient stated he did take his medications on 05/18/2024 Patient bedside screening by my count improved patient will have his n.p.o. status stopped will be continued on as needed IV metoprolol and hydralazine for permissive hypertensive control and reinstitute his oral metoprolol in the morning PT OT speech evaluation (2) Paroxysmal atrial fibrillation: Plan: Patient typically has paroxysmal atrial fibrillation typically controlled with metoprolol and Xarelto for anticoagulation. At this point time anticoagulation is held pending MRI, if this is prolonged we may consider parenteral anticoagulation Schedule metoprolol at this point with backup rate control if needed Additional cardiac problems include hypertension and dyslipidemia he typically takes Zocor 20. Other antihypertensive medications include losartan 50 and amlodipine 5 these are currently on hold due to his n.p.o. status (3) Enlarged prostate with lower urinary tract symptoms (LUTS): Plan: Patient typically on finasteride Plan DVT prevention is SCDs Patient is a full code at this time History of Present Illness Primary Care Provider: Fabian Sullivan MD 84-year-old male's been in the emergency room last 2 days. That required suturing to control the bleeding in the dentist office. The patient had an evaluation emergency department with stable vital signs and blood pressure and was discharged home with a prescription for Bactrim therapy.. Returns on the with similar symptoms and now concern for some mild right-sided weakness by his family. Patient failed a swallowing evaluation in the emergency department. He was with mild elevation of his blood pressure. Imaging study in emergency department did not show any acute hemorrhage this included CT head CT angiogram head and neck. In the emergency department he has some right facial droop and some speech issues. He feels dizzy when sitting up although his blood pressure is elevated He has no gross focal motor deficits even to intrinsic hand muscle testing he has no sensory deficits Allergies Allergy/AdvReac Type Severity Reaction Status Date / Time iodine Allergy Mild Rash Verified 05/18/24 11:49 Home Medications Medication Instructions Recorded Confirmed Type calcium 600 mg (as 1 tab PO DAILY 02/26/19 05/18/24 History carbonate)-vitamin D3 5 mcg (200 unit) tablet polyethylene glycol 3350 17 17 gm PO DAILY PRN constipation 03/04/19 05/18/24 History gram/dose oral powder (ClearLax) docusate sodium 100 mg tablet 100 mg PO DAILY #180 tabs 12/15/21 05/18/24 History rivaroxaban 20 mg tablet (Xarelto) 20 mg PO DAILY #90 tabs 11/05/23 05/18/24 Rx amlodipine 5 mg tablet 5 mg PO DAILY #90 tabs 01/17/24 05/18/24 Rx finasteride 5 mg tablet 5 mg PO DAILY #90 tabs 02/04/24 05/18/24 Rx omeprazole 20 mg capsule,delayed 20 mg PO DAILY #90 caps 03/03/24 05/18/24 Rx release simvastatin 10 mg tablet 10 mg PO QPM #90 tabs 05/01/24 05/18/24 Rx acetaminophen 500 mg tablet 500 mg PO TID PRN Pain/Fever 05/18/24 05/18/24 History fluticasone propionate 50 1 - 2 spray intranasal DAILY 05/18/24 05/18/24 History mcg/actuation nasal spray,suspension losartan 50 mg tablet See Rx Instructions .Route .COMPLEX 05/18/24 05/18/24 History metoprolol succinate 25 mg 50 mg PO DAILY 05/18/24 05/18/24 History tablet,extended release 24 hr [id number] 250 mg-dha 90 1 cap PO DAILY 05/18/24 05/18/24 History mg-epa 160 [id number]-zeax capsule (Ocuvite Adult 50 Plus) Past Med/Surg History Problem List (Updated 05/18/24 @ 15:16 by Dayron Bush MD) A-fib (Acute) Current use of ferry terminal supervisor anticoagulation (Acute) Stroke-like symptoms (Acute) Weakness (Acute) Weakness (Acute) Tendonitis of upper biceps tendon of right shoulder Right rotator cuff tendonitis 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 Paroxysmal atrial fibrillation Right shoulder pain Chronic SI joint pain Elevated TSH Hyponatremia Current use of proton pump inhibitor Vitamin D deficiency (Acute) Mild mitral regurgitation (Acute) Hypercholesterolemia (Acute) Essential hypertension (Acute) Nonerosive esophageal reflux disease (Acute) Enlarged prostate with lower urinary tract symptoms (LUTS) (Acute) Atrial fibrillation with normal ventricular rate (Acute) Sensorineural hearing loss of left ear (Acute) Exposure to COVID-19 virus Hyperglycemia Anxiety Surgical History History of cardiac radiofrequency ablation Family History Father Cerebral atherosclerosis Coronary atherosclerosis Brother Lung cancer Denies family history of Ovarian cancer Prostate cancer Myocardial infarction Breast cancer Colon cancer high risk Social History Smoking Status: Never smoker Second Hand Exposure: No; Do You Dip or Chew Tobacco: No; Hx Alcohol Use: Yes Alcohol type: hard liquor Hx Substance Use: No Preferred Language: Filipino Communication Ability: Unable Visual Impairment: No Limitations Hearing Ability: Use of Hearing Aid 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 Beliefs That Will Affect Care: None marital status: Current Living Situation: Alone current occupational status: retired Other Information That Helps Us Care for You: No Feels Safe at Home: Yes Safety Concerns: Feels Safe At This Time Childhood Exposure to Second-Hand Smoke: No Dental Care, Regularly: Yes Physical Activity Frequency: 3-4 Times per Week Seatbelt Use: always Sunscreen Use: Yes Assistive Devices: Glasses and Hearing Aid - Bilateral Review of Systems Constitutional: Mild distress and fatigue no headache, no visual changes Patient has a dysarthria did have swallowing issues when laying flat I did a bedside swallowing test with him sitting upright he had no swallowing issues for me no chest pain, pressure or palpitations no shortness of breath, cough or wheezes no abdominal pain, nausea or vomiting, diarrhea or constipation no dysuria, hematuria recent urine frequency scheduled for urology no focal joint pain or swelling Chronic daily back pain sees pain management, CVA tenderness or radicular pain no bruising, bleeding or rashes Right facial drooping no complaints of anxiety or depression.. Physical Exam Physical Exam: The patient appeared well nourished and normally developed. Vital signs as documented. Head exam is normocephalic atraumatic Neck is without JVD, thyromegaly, or carotid bruits. Lungs are clear to auscultation, no focal loss of breath sounds Cardiac exam, Rhythm is regular.. Right upper sternal border systolic murmur is heard Abdominal exam reveals normal bowel sounds, soft non tender, no masses Extremities are nonedematous and both pedal pulses are present Neurologic exam is alert and oriented, no focal loss of strength or sensation to confrontational testing but did mention the facial asymmetry Skin is without bruises or rashes Psychologically is without concerns for anxiety or depression.. Results & Data Results & Data Vital Signs (Past 12 Hours) Vital Signs Temp Pulse Resp BP Pulse Ox O2 Del Method 05/18/24 09:57 71 05/18/24 09:36 96.8 F L 74 20 163/96 H 98 Room Air Laboratory Results Reviewed CBC reviewed chemistry reviewed troponin CT head angio head and neck negative ECG Additional Comments: EKG currently pending at the time of this dictation Code Status & VTE Plan VTE Prophylaxis Plan VTE Prophylaxis will be ordered: Yes PG Care Time/CCT Total # of Minutes Spent Total Time Spent with Patient: Total time spent is greater than 50% in coordination of care (as documented) at patient's floor/unit and/or counseling patient: Coding Level of Care Code 46715 INT INP/OBS CARE 3/75MIN Diagnoses Weakness R53.1 Paroxysmal atrial fibrillation I48.0 Enlarged prostate with lower urinary tract symptoms (LUTS) N40.1
[2024-05-18] MEDS ORDERED: PHARMACIST DISCHARGE MED REC CONSULT PRN (13:00)
[2024-05-18] MEDS ORDERED: ONDANSETRON INJ 2 MG/ML 2 ML VIAL IV PRN (13:00)
[2024-05-18] MEDS ORDERED: NITROGLYCERIN SL 0.4 MG/TAB TAB SL PRN (13:00)
[2024-05-18] MEDS ORDERED: FLUTICASONE PROPIONATE NA SPR 16 GM BTL NAE PRN (13:04)
[2024-05-18] MEDS: FLUTICASONE PROPIONATE NA SPR 16 GM BTL NAE SCH (13:18)
[2024-05-18] MEDS: ACETAMINOPHEN 500 MG TAB PO SCH (13:22)
[2024-05-18] MEDS: METOPROLOL TARTRATE 1 MG/ML VIAL IV SCH (13:22)
[2024-05-18] MEDS: ASPIRIN CHEW 324 MG PO STA (13:24)
--- NOTE | 2024-05-18 15:43 | Magnetic Resonance Report ---
MR brain wo con CLINICAL HISTORY: stroke eval TECHNIQUE: Multiplanar and multisequence MR images of the brain were obtained without intravenous con trast. Comparison: Comparison is made to CT head 05/18/2024 FINDINGS: There is a small focus of restricted diffusion in the left monique. Foci of T2 and FLAIR hyperintensity are noted in the paraventricular areas consistent with chronic small vessel ischemic disease. Ex vacu o ventriculomegaly and sulcal enlargement is noted compatible with diffuse volume loss. No mass is se en. There is no mass effect or midline shift. There is no evidence of acute intraparenchymal hemorrha ge. No extra axial fluid collections are seen. The corpus callosum, pituitary gland, and cerebellar t onsils appear grossly unremarkable. Flow voids of the major intracranial arterial vessels are identified. The imaged portions of the para nasal sinuses, mastoid air cells, and orbits are unremarkable. 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 Age-related changes as above. ACT 112: Negative or not required by law. Electronically signed by: Ashu Arzate M.D. 05/18/2024 3:40 PM
[2024-05-18] MEDS ORDERED: METOPROLOL TARTRATE 1 MG/ML VIAL IV PRN (15:53)
[2024-05-18] MEDS: hydrALAZINE HCL 20 MG/ML VIAL IV PRN (15:54)
[2024-05-18] MEDS ORDERED: Nursing to Pharmacy Communication SCH (20:45)
[2024-05-18] MEDS: RIVAROXABAN 20 MG TAB PO ONE (21:11)
[2024-05-18] MEDS: METOPROLOL SUCC 50MG EXT REL TAB PO SCH (21:11)
[2024-05-18] MEDS: ATORVASTATIN 40 MG TAB PO SCH (21:11)
[2024-05-18] MEDS: LOSARTAN POTASSIUM 50 MG TAB PO SCH (22:04)
[2024-05-18] MEDS: DOCUSATE SODIUM 100 MG CAP PO SCH (22:04)
[2024-05-19 06:26] LABS: Basophils # (auto) 0.03 K/uL (0.00-0.20); Basophils % (auto) 0.4 %; Eosinophils # (auto) 0.03 K/uL (0.00-0.50); Eosinophils % (auto) 0.4 %; Hematocrit (blood only) 46.4 % (42.0-52.0); Hemoglobin 15.7 g/dl (14.0-18.0); Immature Granulocytes # (auto) 0.04 K/uL (0.01-0.20); Immature Granulocytes % (auto) 0.6 %; Lymphocytes # (auto) 0.82 K/uL (1.20-3.40); Lymphocytes % (auto) 11.9 %; Mean Corpuscular Hemoglobin 30.1 pg (25.0-34.0); Mean Corpuscular Hgb Conc 33.8 g/dL (32.0-36.0); Mean Corpuscular Volume 88.9 fL (80.0-100.0); Mean Platelet Volume 10.1 fL (9.4-12.4); Monocytes % (auto) 8.7 %; Neutrophils # (auto) 5.39 K/uL (1.40-6.50); Platelet Count 252 K/uL (130-400); RDW Coefficient of Variation 13.3 % (11.5-14.5); RDW Standard Deviation 43.7 fL (36.4-46.3); Red Blood Count 5.22 M/uL (4.70-6.10); White Blood Count 6.91 K/ul (4.8-10.8)
[2024-05-19 06:51] LABS: BUN Creatinine Ratio 17.2 (10-20); Calcium 9.3 mg/dl (8.6-10.3); Chol HDL Ratio 3.4 (0-5); Creatinine Clr Calc Pharmacy 58.9 ml/min
[2024-05-19 08:00] LABS: Estimated Average Glucose 128 mg/dl; Hemoglobin A1C 6.1 % (4.5-5.6)
[2024-05-19] MEDS: OPTIRAY 320 125ml IV ONE (08:12)
[2024-05-19] MEDS: LACTATED RINGER'S 500 ML IV ONE (08:24)
--- NOTE | 2024-05-19 08:25 | CT Scan Report ---
CT head/brain wo con CLINICAL HISTORY: 84 years-old Male with Stroke like sx. Acute stroke like symptoms TECHNIQUE: Multiple axial CT images of the head were obtained without contrast. A dose lowering tech nique was utilized adhering to the principles of ALARA. COMPARISON: CTA head of same day, head CT 05/18/2024, brain MRI 05/18/2024 FINDINGS: No acute intracranial hemorrhage, midline shift, intracranial mass, hydrocephalus, territorial ischem ia or abnormal extra-axial collection. Ill-defined hypodense focus within the left cerebral peduncle/ midbrain, image 13 series 4 is better seen on comparison MRI. Involutional changes with mild chronic microvascular ischemic disease. The calvarium is intact. Left-sided scleral banding. The paranasal sinuses, mastoid air cells, and mi ddle ear cavities are clear. IMPRESSION: 1. No acute intracranial hemorrhage or acute territorial infarct. 2. Acute left brainstem infarct redemonstrated, better seen on yesterday's brain MRI. ACT 112: Negative or not required by law. The above report was generated using voice recognition software. It may contain grammatical, syntax o r spelling errors. Electronically signed by: Nael Martins M.D. 05/19/2024 8:22 AM
--- NOTE | 2024-05-19 08:26 | CT Scan Report ---
CT angio neck with con CLINICAL HISTORY: 84 years-old Male with Stroke-like sx. Acute stroke like symptoms COMPARISON STUDY: CT neck 05/18/2024 TECHNIQUE: Following the IV administration of 112 of Optiray, CT angiogram of the neck was performed from the aortic arch to the skull base. Images are reviewed in the axial, sagittal, and coronal plane s. 3-D MIPS images are created and assessed. IV contrast was administered without complication. All m easurements were calculated based on NASCET criteria. A dose lowering technique was utilized adherin g to the principles of ALARA. FINDINGS: Patent common carotid arteries with mild atherosclerosis. There is moderate atherosclerotic plaque of the carotid bulbs, left greater than right resulting in less than 50% stenosis. The vertebral arteri es are codominant and widely patent. The left vertebral artery originates from the aortic arch. Lung apices are clear. There is no pneumothorax. Multinodular thyroid. Nodules on the right measure u p to 1.5 cm with coarse calcifications. Multilevel degenerative changes of the cervical spine. No acu te fracture identified. IMPRESSION:Stable exam from the study obtained less than 24 hours earlier. No aneurysm, dissection, h igh-grade stenosis or arterial occlusion identified. ACT 112: Negative or not required by law. The above report was generated using voice recognition software. It may contain grammatical, syntax o r spelling errors. Electronically signed by: Nael Martins M.D. 05/19/2024 8:25 AM
--- NOTE | 2024-05-19 08:32 | CT Scan Report ---
CTA ANGIOGRAPHY OF THE HEAD CLINICAL HISTORY: Stroke-like sx COMPARISON STUDY: CTA of the head May 18, 2024. TECHNIQUE: Helical axial images of the head were obtained following uneventful intravenous administr ation of 112 cc of Optiray. Sagittal and coronal reconstructions were viewed as well as maximal inten sity projections on an independent 3-D workstation. Automated exposure control was utilized for the study. A dose lowering technique was utilized adhering to the principles of ALARA. CT DOSE: 1315.65 mGy.cm FINDINGS: There is moderate plaque within the bilateral cavernous carotids without significant stenos is. The bilateral M1, M2, A1 and A2 segments are patent. There is persistence of the right post erior cerebral artery. There is short segment occlusion versus severe stenosis of the left posterior cerebral artery (P2 segment) shown on image 93 of 249. This has increased since CTA of May 18. Otherwise, the intracranial circulation is intact. There is no intracranial aneurysm. The head CT will be reported separately. IMPRESSION: 1. Short segment occlusion versus severe stenosis of the left MOLD MACHINE OPERATOR (P2 segment) which has increased si nce prior CTA. 2. No additional stenoses or sites of vessel occlusion. 3. Moderate plaque within the bilateral cavernous carotids without stenosis. ACT 112: Negative or not required by law. Electronically signed by: Barry Leija M.D. 05/19/2024 8:29 AM
--- NOTE | 2024-05-19 08:37 | Hospitalist Progress Note ---
<Statement entered by Tresa Munson MD - 05/19/24 18:14> I have reviewed vital signs, chart notes, labs and imaging. I have personally seen, evaluated and examined the patient. I have also discussed the management of the patient with the [facility] and I agree with the exam findings documented in the history and physical examination and the documented assessment and plan unless otherwise stated below. On my exam he had a right facial droop right upper extremity and right lower extremity 3/5 strength with drift. Seen immediately after CTs for code stroke and symptoms had resolved to baseline as of the previous day. Reviewed updated CTs and discussed with neurologist Dr. Soriano like he has been having stuttering symptoms related to a left ARMHOLE BASTER JUMPBASTING stenosis which is undergoing a thrombotic event. allow permissive hypertension especially today since relative hypotension may have precipitated some of the worsening symptoms. He presented outside of the window for thrombolytics which are also contraindicated because he has been on Xarelto. Plan is to continue Xarelto and aspirin he has been living independently and is not frail therefore he would strongly benefit from an acute rehab stay from this acute stroke to regain his independent functional capacity. Date of Service May 19, 2024 Assessment & Plan (1) Acute CVA (cerebrovascular accident): Plan: Acute CVA- acute left midbrain/cerebral peduncle stroke identified on MRI; Presented 05/18 with progressive R sided weakness for > 24 hr - 05/18: CT head, CTA head/neck- No acute intracranial hemorrhage, territorial infarction, or other acute process; No occlusion, significant stenosis, or dissection in the major cervical arteries or major intracranial arteries. 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 Age-related changes. - Called to bedside 0740 for NEW worsening of symptoms; increased weakness RUE with drift (+1), RLE drift (+1), dysarthria (+1), R facial droop (+2); NIH 5- stroke alert called - CT head, CTA Head/Neck- No acute intracranial hemorrhage/territorial infarct; Acute left brainstem infarct redemonstrated; Short segment occlusion versus severe stenosis of the left ARMHOLE BASTER JUMPBASTING has increased since prior CTA; Moderate plaque within the bilateral cavernous carotids without stenosis; Stable exam. - Echo- EF 65-70%, no regional wall motion abnormalities, mild concentric LVH, mild - Speech evaluation completed- OK swallowing; NPO stopped and heart healthy diet started - Neuro recs- continue Xarelto 20 mg daily and aspirin 81 mg daily - Fluid bolus given for soft BP; hypotension may have precipitated worsening of symptoms Appreciate neuro recs PT/OT (2) Paroxysmal atrial fibrillation: Plan: PAF, on metoprolol and Xarelto - Continue Xarelto 20 mg daily - Regular rhythm today on exam (3) Enlarged prostate with lower urinary tract symptoms (LUTS): Plan: Patient typically on finasteride - No sx currently Plan HTN- Losartan 50mg and amlodipine 5mg on hold for now Hypercholesterolemia- continue simvastatin 10 mg daily Dispo: Pending improvement symptoms, possibly rehab DVT Prophylaxis: SCDs Code: FULL Admission and Anticipated Discharge Date Admission Date: May 18, 2024 Subjective Initial visit: Called to bedside by nurse at 0740 for new onset symptoms of slurred speech, facial drooping, R arm weakness/drift, and right leg drift; Stroke alert called. Pt states he does not feel well, no direct symptoms to correlate with this feeling. Second visit: Pt is lying in bed at time of visit; his son is in the room at the time of visit. States he is feeling better compared to this morning, but is having frustration with ongoing slurred speech. Denies chest pain, shortness of breath, headache, vision changes, abdominal pain, N/V/D/C, memory abnormalities, numbness/tingling, difficulty swallowing, weakness, fever, or fatigue. No new concerns per nursing. Telemetry: NSR and sinus bradycardia, HR greatly varying 50s to 80s Review of Systems Review of Systems: All systems reviewed & are unremarkable except as noted in Subjective Physical Exam Physical Exam: Physical exam based off of initial visit with patient Respiratory: normal respiratory effort, lungs clear to auscultation Cardiovascular: Rate/Rhythm: regular rate and regular rhythm Heart Sounds: normal S1, normal S2 and + murmur (RUSB systolic murmur noted) Gastrointestinal (Abdomen): normal bowel sounds, soft, nontender, no hepatosplenomegaly Neurologic: normal touch/pain/proprioception and awake; not confused Speech / Cognition: + abnormal speech (Slurred speech, still understandable) Motor/Sensory: + abnormal movement (Drift R arm) Cranial Nerves: PERRL and no nystagmus Patient does continue to have residual right-sided weakness of arm and leg; dysarthria but understandable; chair trimmer strength decreased in right hand compared to left; sensation normal bilaterally in all areas, reflexes within normal limits Psychiatric: A+Ox3, euthymic affect Results & Data Results & Data Vital Signs (Past 12 Hours) Vital Signs Temp Pulse Pulse Resp BP BP Pulse Ox 05/19/24 07:45 36.7 C 75 16 131/77 96 05/19/24 03:38 36.4 C L 72 16 161/74 H 96 05/18/24 23:01 36.4 C L 73 16 161/83 H 96 05/18/24 21:57 77 O2 Del Method 05/19/24 07:45 Room Air 05/19/24 03:38 Room Air 05/18/24 23:01 Room Air 05/18/24 21:[address] 05/19/24 07:57 CT head/brain wo con CLINICAL HISTORY: 84 years-old Male with Stroke like sx. Acute stroke like symptoms TECHNIQUE: Multiple axial CT images of the head were obtained without contrast. A dose lowering technique was utilized adhering to the principles of ALARA. COMPARISON: CTA head of same day, head CT 05/18/2024, brain MRI 05/18/2024 FINDINGS: No acute intracranial hemorrhage, midline shift, intracranial mass, hydrocephalus, territorial ischemia or abnormal extra-axial collection. Ill- defined hypodense focus within the left cerebral peduncle/midbrain, image 13 series 4 is better seen on comparison MRI. Involutional changes with mild chronic microvascular ischemic disease. The calvarium is intact. Left-sided scleral banding. The paranasal sinuses, mastoid air cells, and middle ear cavities are clear. IMPRESSION: 1. No acute intracranial hemorrhage or acute territorial infarct. 2. Acute left brainstem infarct redemonstrated, better seen on yesterday's brain MRI. ACT 112: Negative or not required by law. The above report was generated using voice recognition software. It may contain grammatical, syntax or spelling errors. Electronically signed by: Nael Martins M.D. 05/19/2024 8:22 AM Head CTA 05/19/24 07:57 CTA ANGIOGRAPHY OF THE HEAD CLINICAL HISTORY: Stroke-like sx COMPARISON STUDY: CTA of the head May 18, 2024. TECHNIQUE: Helical axial images of the head were obtained following uneventful intravenous administration of 112 cc of Optiray. Sagittal and coronal reconstructions were viewed as well as maximal intensity projections on an independent 3-D workstation. Automated exposure control was utilized for the study. A dose lowering technique was utilized adhering to the principles of ALARA. CT DOSE: 1315.65 mGy.cm FINDINGS: There is moderate plaque within the bilateral cavernous carotids without significant stenosis. The bilateral M1, M2, A1 and A2 segments are patent. There is persistence of the right posterior cerebral artery. There is short segment occlusion versus severe stenosis of the left posterior cerebral artery (P2 segment) shown on image 93 of 249. This has increased since CTA of May 18, 2024. Otherwise, the intracranial circulation is intact. There is no intracranial aneurysm. The head CT will be reported separately. IMPRESSION: 1. Short segment occlusion versus severe stenosis of the left ARMHOLE BASTER JUMPBASTING (P2 segment) which has increased since prior CTA. 2. No additional stenoses or sites of vessel occlusion. 3. Moderate plaque within the bilateral cavernous carotids without stenosis. ACT 112: Negative or not required by law. Electronically signed by: Barry Leija M.D. 05/19/2024 8:29 AM Neck CTA 05/19/24 07:57 CT angio neck with con CLINICAL HISTORY: 84 years-old Male with Stroke-like sx. Acute stroke like symptoms COMPARISON STUDY: CT neck 05/18/2024 TECHNIQUE: Following the IV administration of 112 of Optiray, CT angiogram of the neck was performed from the aortic arch to the skull base. Images are reviewed in the axial, sagittal, and coronal planes. 3-D MIPS images are created and assessed. IV contrast was administered without complication. All measurements were calculated based on NASCET criteria. A dose lowering technique was utilized adhering to the principles of ALARA. FINDINGS: Patent common carotid arteries with mild atherosclerosis. There is moderate atherosclerotic plaque of the carotid bulbs, left greater than right resulting in less than 50% stenosis. The vertebral arteries are codominant and widely patent. The left vertebral artery originates from the aortic arch. Lung apices are clear. There is no pneumothorax. Multinodular thyroid. Nodules on the right measure up to 1.5 cm with coarse calcifications. Multilevel degenerative changes of the cervical spine. No acute fracture identified. IMPRESSION:Stable exam from the study obtained less than 24 hours earlier. No aneurysm, dissection, high-grade stenosis or arterial occlusion identified. ACT 112: Negative or not required by law. The above report was generated using voice recognition software. It may contain grammatical, syntax or spelling errors. Electronically signed by: Nael Martins M.D. 05/19/2024 8:25 AM PG Care Time/CCT Total # of Minutes Spent Total Time Spent with Patient: Total time spent is greater than 50% in coordination of care (as documented) at patient's floor/unit and/or counseling patient: C[place] [address] SUB INP/OBS CARE 2/35MIN Patient Type Established History Expanded Problem Focused Exam Expanded Problem Focused Medical Decision Making Moderate Complexity Diagnoses Acute CVA (cerebrovascular accident) I63.9 Paroxysmal atrial fibrillation I48.0 Enlarged prostate with lower urinary tract symptoms (LUTS) N40.1 Time Spent (min) 45
[2024-05-19] MEDS ORDERED: amLODIPine BESYLATE 5 MG TAB PO SCH (09:00)
[2024-05-19] MEDS ORDERED: METOPROLOL SUCC 50MG EXT REL TAB PO SCH (09:00)
[2024-05-19] MEDS ORDERED: LOSARTAN POTASSIUM 50 MG TAB PO SCH (09:00)
[2024-05-19] MEDS ORDERED: ATORVASTATIN 40 MG TAB PO SCH (09:00)
[2024-05-19] MEDS ORDERED: RIVAROXABAN 20 MG TAB PO SCH (09:00)
[2024-05-19] MEDS ORDERED: CLOPIDOGREL BISULFATE 75 MG TAB PO SCH (09:00)
--- NOTE | 2024-05-19 10:02 | XCELERA ---
[id number]
--- NOTE | 2024-05-19 10:19 | Neurology Consultation ---
Date of Consultation May 19, 2024 Assessment & Plan (1) Acute CVA (cerebrovascular accident): (2) Acute right hemiparesis: (3) Essential hypertension: Plan This patient suffered an acute left midbrain/cerebral peduncle stroke likely secondary to ischemia. The left posterior cerebral artery has significant stenoses and feeder branches to the stroke area may be involved. Clinically he has a significant right hemiparesis including arm and face greater than leg. He has no hemisensory deficit or vision issues. He does have dysarthria. His symptoms have fluctuated over the last several days but he appears to be stable currently. This is all happened despite being on Xarelto for history of atrial fibrillation. Anticoagulants will typically not prevent small vessel ischemic disease or intracranial process. The patient has a history of hypertension which is improved today. There is a history of dyslipidemia and he has been on simvastatin 10 mg daily. Recommendations: 1. Continue Xarelto 20 mg daily. 2. Continue 81 mg aspirin tablet daily. 3. Control blood pressure as you are doing. 4. Continue simvastatin 10 mg daily. Considering his total cholesterol 151 and his advanced age, there is no reason to increase his dose. He is not a high- dose statin candidate 5. Physical, occupational, and speech therapy consults. Increase activity as able 6. He could be a good rehabilitation hospital candidate 7. I will follow-up Overall, I spent a total of 90 minutes with this case including review of records, review of MRI films, direct evaluation the patient at bedside, report generation, and discussion of the case with the patient, son, and RN at bedside, Dr. Heladio barraza, and Dr. Munson including differential diagnosis and treatment options History of Present Illness Reason for Consultation: Patient is an 84-year-old, who was asked to see at the request of Tresa Munson, for neurologic evaluation regarding stroke. Requesting Physician: Dr. Munson Attending Physician: Tresa Munson MD History of Present Illness This patient has a history of atrial fibrillation on Xarelto since 2016. He has a history of hypertension since age 58 and dyslipidemia. He has no history of diabetes or previous stroke. On May 14, the patient had a tooth pulled by his dentist. There was excessive bleeding and the next day he had to go in and have a stitch. He did bleed quite a bit and came to the emergency room May 17 feeling generally weak and feeling that he had lost too much blood and possibly needed transfusion. However, hemoglobin was 15.2 and hematocrit was 45.6. Rest of his labs and exam were unremarkable and he was sent home with supportive care. At that time blood pressure was 169/92. The patient tells me that on May 16 he had an episode lasting only seconds where his right upper extremity was profoundly weak. He then recovered and no further symptoms happen. The patient went to bed around 9 PM the evening of May 17, feeling tired but having no other symptoms. The patient woke up around 0600 on May 18 feeling very tired and weak and numb on the right side. He had slurred speech. His son, who was present in the room today, thought that the patient had a significant right facial droop. He verified the right sided weakness and inability to walk well as well as the slurred speech. The patient tells me that he did not miss any doses of Xarelto, including taking it in the late afternoon of May 17. He arrived to the emergency room May [id number] with a temperature 36.6, pulse 74 and regular, respiratory rate 20 and comfortable, blood pressure 163/96, and O2 saturation 98%. There was some weakness of the right arm and leg but his speech was a little bit improved. CHEM profile and CBC were unremarkable. CT scan of the head was unremarkable. CT angiography of the head and neck was normal with no significant vessel stenosis or anomalies. MRI of the brain was obtained May 18 and showed a small acute stroke at the junction between the left midbrain and left cerebral peduncle. Patient had mild generalized atrophy and mild old small vessel ischemic disease. I reviewed these films. The patient did not sleep well throughout all of last night. This morning he was found by the nurse at [id number] to have paralysis of the right arm and leg at first followed by weakness of the right arm and leg and significant slurred speech. There was a dense facial droop. He was sent down to CT scan of the head which was unremarkable. CTA of the head and neck revealed a stenosis of significant nature of the left posterior cerebral artery. This was clearly more prominent than the previous study of May 18 (in retrospect it was present but to a lesser degree on the CTA of May 18). I reviewed these films and reports with Dr. Leija. This morning (between 0930 and 1000) the patient is improved. He is still weak in the right arm and leg but better than earlier this morning. His face does not have as much droop and he does not have quite the slurred speech he did earlier this morning. This has been verified with the RN who is at bedside. He denies pain or headaches. He does feel fatigued in general. Hemoglobin A1c is 6.1. Triglycerides were 95 and total cholesterol 151. Allergies Allergy/AdvReac Type Severity Reaction Status Date / Time iodine Allergy Mild Rash Verified 05/18/24 11:49 Home Medications Medication Instructions Recorded Confirmed Type calcium 600 mg (as 1 tab PO DAILY 02/26/19 05/18/24 History carbonate)-vitamin D3 5 mcg (200 unit) tablet polyethylene glycol 3350 17 17 gm PO DAILY PRN constipation 03/04/19 05/18/24 History gram/dose oral powder (ClearLax) docusate sodium 100 mg tablet 100 mg PO DAILY #180 tabs 12/15/21 05/18/24 History rivaroxaban 20 mg tablet (Xarelto) 20 mg PO DAILY #90 tabs 11/05/23 05/18/24 Rx amlodipine 5 mg tablet 5 mg PO DAILY #90 tabs 01/17/24 05/18/24 Rx finasteride 5 mg tablet 5 mg PO DAILY #90 tabs 02/04/24 05/18/24 Rx omeprazole 20 mg capsule,delayed 20 mg PO DAILY #90 caps 03/03/24 05/18/24 Rx release simvastatin 10 mg tablet 10 mg PO QPM #90 tabs 05/01/24 05/18/24 Rx acetaminophen 500 mg tablet 500 mg PO TID PRN Pain/Fever 05/18/24 05/18/24 History fluticasone propionate 50 1 - 2 spray intranasal DAILY 05/18/24 05/18/24 History mcg/actuation nasal spray,suspension losartan 50 mg tablet See Rx Instructions .Route .COMPLEX 05/18/24 05/18/24 History metoprolol succinate 25 mg 50 mg PO DAILY 05/18/24 05/18/24 History tablet,extended release 24 hr [id number] 250 mg-dha 90 1 cap PO DAILY 05/18/24 05/18/24 History mg-epa 160 [id number]-zeax capsule (Ocuvite Adult 50 Plus) Patient History Surgical History History of cardiac radiofrequency ablation Family History (Updated 05/19/24 @ 10:31 by Junior Eden MD) Father , age 88 Cerebral atherosclerosis Coronary atherosclerosis Brother Lung cancer Mother , age 94 of uncertain causes No problems noted. 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 Beliefs That Will Affect Care: None marital status: Current Living Situation: Alone current occupational status: retired current occupation: Retired, 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60, 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 Feels Safe at Home: Yes Childhood Exposure to Second-Hand Smoke: No Dental Care, Regularly: Yes Physical Activity Frequency: 3-4 Times per Week Seatbelt Use: always Sunscreen Use: Yes Assistive Devices: Glasses and Hearing Aid - Bilateral Review of Systems Constitutional: + fatigue and + weakness; no fever Eyes: no diplopia, no eye pain and no worsening vision Ear, Nose, Mouth, Throat: no ear pain, no tinnitus, no hearing loss, no diz ziness, no snoring, no hoarseness and no dysphagia Respiratory: no cough and no dyspnea Cardiovascular: no chest pain, no palpitations and no lightheadedness Gastrointestinal: no abdominal pain, no nausea and no vomiting Musculoskeletal: no back pain, no neck pain, no radicular pain, no joint pain and no myalgia Integumentary: no rash and no lesions Neurologic: + localized weakness, + tingling, + numb ness and + abnormal speech; no gait abnormality, no generalized weakness, no tremor(s), no abnormal movements, no headache(s), no confusion and no memory loss Psychiatric: no depression, no irritability, no anxiety, no difficulty concentrating, no confusion and no hallucinations Endocrine: no fatigue and no flushing Hematologic / Lymphatic: no easy bleeding and no easy bruising Allergy / Immunological: no urticaria and no problem reported Exam (Neuro) Physical Exam: The patient is right-handed. The patient is awake, alert, and attentive. Speech has a noticeable dysarthria. There is no obvious aphasia. Mentation and thought processes are intact, with full orientation and normal fund of knowledge. Mood and affect are normal and appropriate. Appearance and grooming are normal. Short and long-term memory are intact to conversation. Pupils are 4 mm bilaterally and reactive to light. Extraocular eye muscles are intact without nystagmus. Visual acuity and visual rizzo seem normal grossly to confrontation. There are no deficits to sensation in the face in all 3 distributions of the fifth cranial nerve bilaterally. Corneal reflexes are positive bilaterally. There is a asymmetry and droop at the corner of the mouth on the right. It does not move with voluntary smile is much as the left. Hearing seems intact grossly to voice and finger rub bilaterally. Palate moves well without asymmetry. There is normal sternocleidomastoid and trapezius strength bilaterally. Tongue is midline with good strength bilaterally. Neck has a full range of motion without discomfort. Cervical, thoracic, and lumbar spine are nontender to palpation. Gait was not tested but stance sitting up in bed is reasonable. With outstretched arms there is significant drift on the right. There are no resting, postural, or action tremors. There is no ataxia with finger to nose testing. There is decreased facility in the right hand and right foot compared to the left which were normal. Motor strength is 5/5 diffusely in the left upper extremity including deltoids, biceps, triceps, brachioradialis, wrist flexors and extensors, route deliverer, and intrinsic hand muscles. Motor strength is 4-/5 diffusely in the right upper extremity. Motor strength is 5/5 diffusely in the left lower extremity including hip flexors, quadriceps, hamstrings, gastrocnemius, tibialis anterior, tibialis posterior, and Peroneii muscles bilaterally. Motor strength is 5/5 proximally in the hip flexors quadriceps and hamstring muscles on the right but 4/5 distally in the right lower extremity. The limbs have good tone without rigidity or spasticity. There is no atrophy noted in the muscles. Muscle bulk is normal, there is no tenderness to palpation, no myotonia to percussion, and no fasciculations seen. Sensory examination is intact to touch and pin throughout all 4 limbs diffusely. Reflexes are 2/4 in the biceps, triceps, brachioradialis, and quadriceps tendons bilaterally. Achilles tendon reflexes are absent bilaterally. Toes are downgoing with plantar stimulation on the left. They are upgoing with plantar stimulation on the right. Peripheral pulses are present and of normal quality distally in all 4 limbs. The re is no peripheral edema noted in the limbs. Results & Data Vital Signs (Past 12 Hours) Vital Signs Temp Pulse Pulse Resp BP BP Pulse Ox 05/19/24 08:35 54 L 05/19/24 07:45 36.7 C 75 16 131/77 96 05/19/24 03:38 36.4 C L 72 16 161/74 H 96 05/18/24 23:01 36.4 C L 73 16 161/83 H 96 O2 Del Method 05/19/24 08:35 05/19/24 07:45 Room Air 05/19/24 03:38 Room Air 05/18/24 23:01 Room Air PG Care Time/CCT Total # of Minutes Spent Total Time Spent with Patient: Total time spent is greater than 50% in coordination of care (as documented) at patient's floor/unit and/or counseling patient: Coding Level of Care Code 67747 INT INP/OBS CARE 3/75MIN Diagnoses Acute CVA (cerebrovascular accident) I63.9 Acute right hemiparesis G81.91 Essential hypertension I10 Time Spent (min) 90
--- NOTE | 2024-05-19 11:00 | Pharmacy Report ---
- Date of Service May 19, 2024 - Pharmacy CVA/TIA Medication Review Medications to Prevent Stroke handout has been added to the patients discharge packet. Antiplatelet(s) * Aspirin 81mg daily Cholesterol * High intensity statin deferred due to age >75 and total cholesterol of 151 per neurology. To continue simvastatin 10mg daily. DVT Prophylaxis * Xarelto Therapeutic Anticoagulation * Hx Afib/Aflutter noted, and patient is currently receiving Xarelto 20mg daily. Type 2 Diabetes * Patient does not have T2DM
[2024-05-19] MEDS: FLUTICASONE PROPIONATE NA SPR 16 GM BTL NAE SCH (12:22)
[2024-05-19] MEDS: FINASTERIDE 5 MG TAB PO SCH (12:22)
[2024-05-19] MEDS: ASPIRIN 81 MG ECTAB PO SCH (12:22)
[2024-05-19] MEDS: PANTOprazole 40 MG TAB PO SCH (15:27)
[2024-05-19] MEDS: RIVAROXABAN 20 MG TAB PO SCH (16:44)
[2024-05-20] MEDS: MELATONIN 3 MG TAB PO PRN (02:17)
[2024-05-20 03:28] VITALS: RESP 20
[2024-05-20 06:27] LABS: Basophils # (auto) 0.03 K/uL (0.00-0.20); Basophils % (auto) 0.4 %; Eosinophils # (auto) 0.03 K/uL (0.00-0.50); Eosinophils % (auto) 0.4 %; Hematocrit (blood only) 45.4 % (42.0-52.0); Hemoglobin 15.6 g/dl (14.0-18.0); Immature Granulocytes # (auto) 0.02 K/uL (0.01-0.20); Immature Granulocytes % (auto) 0.3 %; Lymphocytes % (auto) 15.6 %; Mean Corpuscular Hemoglobin 30.2 pg (25.0-34.0); Mean Corpuscular Hgb Conc 34.4 g/dL (32.0-36.0); Mean Platelet Volume 9.7 fL (9.4-12.4); Monocytes # (auto) 0.81 K/uL (0.11-0.59); Monocytes % (auto) 10.5 %; Neutrophils # (auto) 5.59 K/uL (1.40-6.50); Neutrophils % (auto) 72.8 %; Platelet Count 254 K/uL (130-400); RDW Coefficient of Variation 13.2 % (11.5-14.5); RDW Standard Deviation 42.7 fL (36.4-46.3); Red Blood Count 5.16 M/uL (4.70-6.10); White Blood Count 7.68 K/ul (4.8-10.8)
[2024-05-20 06:44] LABS: BUN Creatinine Ratio 12.8 (10-20); Calcium 8.7 mg/dl (8.6-10.3); Creatinine Clr Calc Pharmacy 63.7 ml/min; Potassium 3.9 mmol/L (3.5-5.1)
[2024-05-20] MEDS: SIMVASTATIN 10 MG TAB PO SCH (09:12)
--- NOTE | 2024-05-20 10:56 | Neurology Progress Note ---
Date of Service May 20, 2024 Assessment & Plan (1) Acute CVA (cerebrovascular accident): (2) Acute right hemiparesis: (3) Essential hypertension: Plan This patient suffered an acute left midbrain/cerebral peduncle ischemic stroke. The left posterior cerebral artery has significant stenoses and feeder branches to the stroke area may be involved. Clinically he has a significant right hemiparesis including arm and face greater than leg. He is a little worse today which is likely secondary to some localized swelling at the site of the stroke. His dysarthria is somewhat improved and he has no other signs of increased intracranial pressure. he has no hemisensory deficit or vision issues. His symptoms had fluctuated over the last several days. This is all happened despite being on Xarelto for history of atrial fibrillation. Anticoagulants will typically not prevent small vessel ischemic disease or intracranial process. The patient has a history of hypertension which is improved today. There is a history of dyslipidemia and he has been on simvastatin 10 mg daily. Recommendations: 1. Continue Xarelto 20 mg daily. 2. Continue 81 mg aspirin tablet daily. 3. Control blood pressure as you are doing. 4. Continue simvastatin 10 mg daily. Considering his total cholesterol 151 and his advanced age, there is no reason to increase his dose. He is not a high- dose statin candidate 5. Physical, occupational, and speech therapy consults. Increase activity as able 6. He could be a good rehabilitation hospital candidate 7. There is no need for additional neurologic imaging at this time but we will follow. Overall, I spent a total of 35 minutes with this case including review of records, direct evaluation the patient at bedside, report generation, and discussion of the case with the patient, son, and RN at bedside, and Dr. Leung including differential diagnosis and treatment options Admission and Anticipated Discharge Date Admission Date: May 18, 2024 Subjective Compared to yesterday, he is not moving his right arm or leg as well as he did. He has no pain or headache. He has no confusion or altered level of consciousness. Blood pressure is 168/79. He is afebrile. CBC today is unremarkable as is CHEM profile. Nursing reports no new issues. Results & Data Vital Signs (Past 12 Hours) Vital Signs Temp Pulse Pulse Resp BP Pulse Ox O2 Del Method 05/20/24 07:48 36.8 C 77 168/79 H 97 Room Air 05/20/24 06:00 71 10/22/24 03:27 36.6 C 64 20 178/90 H 94 Room Air Exam (Neuro) Physical Exam: The patient is awake, alert, and attentive, with good understanding and communication. He has some dysarthria but this is improved compared to yesterday. Mood is normal and affect is appropriate. The patient is fully oriented and has intact long and short term memory to conversation. Extraocular eye muscles are intact without nystagmus. Patient has a significant facial droop on the right and is not moving quite as well with voluntary smile as he did yesterday. Tongue is midline with normal strength bilaterally. Gait is not testable but stance sitting up in bed is reasonable. His right upper extremity is more flaccid being 1/5 distally and 3/5 proximally. Right lower extremity is 2/5 distally and 4/5 proximally. The left side is 5/5 with good movement. PG Care Time/CCT Total # of Minutes Spent Total Time Spent with Patient: Total time spent is greater than 50% in coordination of care (as documented) at patient's floor/unit and/or counseling patient: Coding Level of Care Code 60527 SUB INP/OBS CARE 2/35MIN Diagnoses Acute CVA (cerebrovascular accident) I63.9 Acute right hemiparesis G81.91 Essential hypertension I10 Time Spent (min) 35
[2024-05-20 11:30] VITALS: BP 161/81; TEMP 98.1; O2SAT 95
--- NOTE | 2024-05-20 14:11 | Discharge Summary ---
Discharge Summary Date of Service May 20, 2024 Principal Dx & Hospital Course #1 = Principal Diagnosis (1) Acute CVA (cerebrovascular accident): Acute CVA- acute left midbrain/cerebral peduncle stroke identified on MRI; Presented 05/18 with progressive R sided weakness for > 24 hr - 05/18: CT head, CTA head/neck- No acute intracranial hemorrhage, territorial infarction, or other acute process; No occlusion, significant stenosis, or dissection in the major cervical arteries or major intracranial arteries. 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 Age-related changes. -05/19: New onset of increased RUE weakness with drift, RLE drift, increasing dysarthria, increasing right facial droop; stroke alert called: CT head, CTA Head/Neck- Acute left brainstem infarct redemonstrated; Short segment occlusion versus severe stenosis of the left CORPORATE COUNSEL has increased since prior CTA; Moderate plaque within the bilateral cavernous carotids without stenosis; Stable exam. Secondary to relative hypotension. 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 Son, Alfie, is in room during time of visit. Continues to experience hemiparesis of the right face, arm, and minimal involvement of the leg. Left side unaffected. Continues to have slurred speech, but states that he feels he is not controllable at this slurring happens or not, and when he focuses the slurring decreases and he is able to articulate his speech better. Reports no headache, vision changes, numbness/tingling, new deficits, chest pain, shortness of breath, abdominal pain, N/V/D/C, or concerning symptoms. Spoke with neurologist, Dr. Eden, on the phone with Dr. Leung regarding patient condition and recommendations. Complete patient education of current condition and management was provided. All questions that the patient asked were answered, and the patient demonstrated complete understanding. (2) Paroxysmal atrial fibrillation: PAF, on metoprolol and Xarelto - Continue Xarelto 20 mg daily - Continue metoprolol daily - Regular rhythm (3) Enlarged prostate with lower urinary tract symptoms (LUTS): Patient typically on finasteride - No sx currently - Continue home dose Plan HTN - Losartan 50mg and amlodipine 5mg - AHA guidelines support safely restarting antihypertensive medications > = 24 hours after acute ischemic stroke in patients that have previously been diagnosed with hypertension. - Patient may restart losartan and amlodipine. - May restart metoprolol for PAF. Hypercholesterolemia- continue simvastatin 10 mg daily Dispo: Patient medically stable for discharge, discharge to rehab today DVT Prophylaxis: SCDs Code: FULL Admission HPI Per Admitting Provider 84-year-old male's been in the emergency room last 2 days. That required suturing to control the bleeding in the dentist office. The patient had an evaluation emergency department with stable vital signs and blood pressure and was discharged home with a prescription for Bactrim therapy.. Returns on the with similar symptoms and now concern for some mild right-sided weakness by his family. Patient failed a swallowing evaluation in the emergency department. He was with mild elevation of his blood pressure. Imaging study in emergency department did not show any acute hemorrhage this included CT head CT angiogram head and neck. In the emergency department he has some right facial droop and some speech issues. He feels dizzy when sitting up although his blood pressure is elevated He has no gross focal motor deficits even to intrinsic hand muscle testing he has no sensory deficits Admission Exam Per Admitting Provider The patient appeared well nourished and normally developed. Vital signs as documented. Head exam is normocephalic atraumatic Neck is without JVD, thyromegaly, or carotid bruits. Lungs are clear to auscultation, no focal loss of breath sounds Cardiac exam, Rhythm is regular. Right upper sternal border systolic murmur is heard Abdominal exam reveals normal bowel sounds, soft non tender, no masses Extremities are nonedematous and both pedal pulses are present Neurologic exam is alert and oriented, no focal loss of strength or sensation to confrontational testing but did mention the facial asymmetry Skin is without bruises or rashes Psychologically is without concerns for anxiety or depression.. Discharge Exam General: No acute distress, well developed. Head: Normocephalic, atraumatic Eyes: PERRL, conjunctivae clear, sclera non-icteric; EOM intact Neck: Supple, no LAD; no JVD Cardio: RRR, no G/R, S1 and S2 normal; RUSB murmur Resp: Chest wall symmetric, normal respiratory effort; No respiratory distress, Lungs CTA in all lobes bilaterally, no wheezes, rales, or rhonchi Abdomen: Soft, symmetric, nontender; No masses or hepatosplenomegaly MSK: No deformities, strength equal and symmetric, full ROM throughout; sensatio n normal to UE/LE. Pulses palpable and equal Neuro: Muscle strength 5/5 bilaterally in UE/LE; Sensation intact bilaterally; CN intact - Awake + alert, mild dysarthria - R sided facial droop ongoing; able to puff out cheeks, weakly smile, and stick out tongue. - RUE without good movement, lower aspect with more weakness than upper. - RLE with improving movement, strength greater in proximal aspect vs distal - LUE + LLE with 5/5 strength Psych: Appropriate mood and affect; good judgement and insight. Discharge Plan Discharge Items Patient Disposition: Transfer Inpatient Rehab Fac Reason For Visit: STROKE EVAL Discharge Diagnosis: Acute ischemic CVA (cerebrovascular accident/stroke) Activity: Resume your previous activity Non-emergency contact: Primary Care Provider and Neurologist Call non-emergency contact if: you have any medication questions and your symptoms worsen Follow-up/Referrals: Fabian Sullivan MD [Primary Care Provider] - Junior Eden MD [Physician] - (Follow up with Neurology in 2-3 weeks) Diet: Heart Healthy Addtl Attending Provider Instructions: You were diagnosed and treated for a CVA (cerebral vascular accident/stroke). You were medically managed via loose blood pressure control to allow appropriate perfusion to the brain, as well as monitoring. The stroke occurred in the left midbrain/cerebral peduncle, and was ischemic in nature meaning there was no bleeding in the brain. Throughout your stay, your labs remained relatively stable, not requiring intervention. An updated lipid profile was completed and within normal limits. On the initial day of admission (05/18) head CT, CTA and neck CTA yielded insignificant results, not supporting diagnoses of an acute stroke. However, an MRI of the brain was completed the same day. Brain MRI revealed left pontine infarct without hemorrhage. Repeat imaging was obtained (05/19) after new onset symptoms. Imaging revealed stability of current condition. Blood pressure management was the main target in regards to treating your condition. We allowed for higher than normal blood pressure readings to allow better blood flow to the brain and area of stroke. Due to the stroke, your main residual symptoms include a right sided facial droop, slurred speech, right upper extremity weakness with hemiparesis, and right lower extremity weakness with mild hemiparesis. These residual symptoms do not indicate worsening or recurrence of stroke, however can be explained secondary to localized swelling at the site of the previous stroke. Recommendations and medication adjustments are based off of discussion with neurology. Continue Xarelto 20 mg daily, aspirin 81 mg daily, simvastatin 10 mg daily. Please continue all other home medications as prescribed dosages and frequencies. Patient's blood pressure medications may be restarted upon discharge. The AHA support safely restarting medications 24 hours after acute ischemic stroke occurred in patients that have recently been diagnosed with hypertension. You may restart losartan and amlodipine. May restart metoprolol for PAF. Please follow-up with neurologist and PCP within 1 week of completion of rehab. No repeat neurologic imaging is needed at this time. If you notice abnormal pain, worsening of symptoms, or any component of the BE FAST acronym, please call your PCP for advice or return to the ED immediately. Balance (trouble standing or walking), Eyes (trouble with vision), Face (facial droop), Arm (weakness/numbness/drifting of arm), Speech (trouble speaking), Time (act fast- go to ED) For the mild hyponatremia, please check a BMP in 2-3 days. Addtl Affirmative Action Specialist Provider Instructions: Risk Factors for Stroke: You can reduce your chances of stroke by working with your medical provider to adopt a healthy lifestyle. Some specific ways to lower your chance of stroke are: * If you are a smoker, now is the time to stop smoking cigarettes * If you are diabetic, improve the control of your blood sugars * Avoid excessive amounts of alcohol * Control high blood pressure * Lose weight if you are overweight * Be sure to lead an active lifestyle * Eat a healthy diet low in salt, cholesterol and fat You should know about other risk factors for stroke that you are unable to control. These include: * Age 55 years or older * Male gender * Certain racial groups: , or / * Family History of Stroke, Mini stroke or Heart Attack * Sickle Cell Disease Follow Up: It is important for you to keep your follow up appointments with your medical provider. Who to Call and When: Medical Emergencies: Call 911 immediately if you experience any of the following warning signs and symptoms of Stroke: * Sudden numbness or weakness of the face, arm or leg, especially on one side of the body * Sudden confusion, trouble speaking or understanding * Sudden trouble seeing in one or both eyes * Sudden trouble walking, dizziness, loss of balance or coordination * Sudden severe headache with no cause Do not delay calling 911 if you experience any warning signs or symptoms of a stroke. Delay in seeking medical attention may affect what treatments can be given to you. Pending Studies at Discharge: No Stand-Alone Forms: [facility], Medications to Prevent Stroke Skilled Items Patient informed of condition?: Yes DNR: No Discharge Level of Care: Acute rehab Communicable Disease: No Discharge Prognosis: Stable Lines: None Urinary Catheter: No Medications and DC Order Prescriptions: Continued Xarelto 20 mg tablet 20 mg PO DAILY Qty: 90 3RF amlodipine 5 mg tablet 5 mg PO DAILY Qty: 90 3RF finasteride 5 mg tablet 5 mg PO DAILY Qty: 90 3RF omeprazole 20 mg capsule,delayed release(DR/EC) 20 mg PO DAILY Qty: 90 3RF simvastatin 10 mg tablet 10 mg PO QPM Qty: 90 3RF calcium carbonate-vitamin D3 600 mg(1,500mg) -200 unit tablet 1 tab PO DAILY polyethylene glycol 3350 [ClearLax] 17 gram/dose powder 17 gm PO DAILY PRN (Reason: constipation) docusate sodium 100 mg tablet 100 mg PO DAILY Qty: 180 Ocuvite Adult 50 Plus 250 mg (90 mg-160 mg) Capsule 1 cap PO DAILY losartan 50 mg tablet See Rx Instructions .ROUTE .COMPLEX Rx Instructions: Take 50mg by mouth in the morning and 100mg by mouth in the evening. metoprolol succinate 25 mg tablet extended release 24 hr 50 mg PO DAILY fluticasone propionate 50 mcg/actuation spray,suspension 1 - 2 spray intranasal DAILY Rx Instructions: USE 1 TO 2 SPRAYS IN EACH NOSTRIL ONCE DAILY acetaminophen 500 mg Tablet 500 mg PO TID PRN (Reason: Pain/Fever) Discharge Orders: Discharge Order (Routine); Ordered 05/20/24 Ordered By: Nicolette Romo/Other Patient Handouts: A1C, Discharge Instructions for Stroke, Arm Care After a Stroke Admission Data Admit Date/Time: 05/18/24 11:15 Attending Provider: Nicolette Leung Admit Provider: Bryon Cruz Primary Care Provider: Fabian Sullivan Other Providers: Bryon Cruz; Dayron Mason; Junior Eden; Nuria Daniels; Deborah Darnell; Jennifer Cisneros; Freddy Garcia; [facility] Hospital Stay Data Consultations 05/18/24 11:08 ED Decision to Admit Stat 05/19/24 08:10 Consult Neurology Routine Diagnostic Imagining Performed 05/18/24 10:05 CT angio head w con Stat CT angio neck with con Stat CT head/brain wo con Stat 05/18/24 13:00 MR brain wo con Routine 05/19/24 07:57 CT angio head w con Stat CT angio neck with con Stat CT head/brain wo con Stat Pending Results Patient Have Any Pending Studies at Discharge: No Discharge Instructions Given to Patient (Per Discharging Provider) You were diagnosed and treated for a CVA (cerebral vascular accident/stroke). You were medically managed via loose blood pressure control to allow appropriate perfusion to the brain, as well as monitoring. The stroke occurred in the left midbrain/cerebral peduncle, and was ischemic in nature meaning there was no bleeding in the brain. Throughout your stay, your labs remained relatively stable, not requiring intervention. An updated lipid profile was completed and within normal limits. On the initial day of admission (05/18) head CT, CTA and neck CTA yielded insignificant results, not supporting diagnoses of an acute stroke. However, an MRI of the brain was completed the same day. Brain MRI revealed left pontine infarct without hemorrhage. Repeat imaging was obtained (05/19) after new onset symptoms. Imaging revealed stability of current condition. Blood pressure management was the main target in regards to treating your condition. We allowed for higher than normal blood pressure readings to allow better blood flow to the brain and area of stroke. Due to the stroke, your main residual symptoms include a right sided facial droop, slurred speech, right upper extremity weakness with hemiparesis, and right lower extremity weakness with mild hemiparesis. These residual symptoms do not indicate worsening or recurrence of stroke, however can be explained secondary to localized swelling at the site of the previous stroke. Recommendations and medication adjustments are based off of discussion with neurology. Continue Xarelto 20 mg daily, aspirin 81 mg daily, simvastatin 10 mg daily. Please continue all other home medications as prescribed dosages and frequencies. Patient's blood pressure medications may be restarted upon discharge. The AHA support safely restarting medications 24 hours after acute ischemic stroke occurred in patients that have recently been diagnosed with hypertension. You may restart losartan and amlodipine. May restart metoprolol for PAF. Please follow-up with neurologist and PCP within 1 week of completion of rehab. No repeat neurologic imaging is needed at this time. If you notice abnormal pain, worsening of symptoms, or any component of the BE FAST acronym, please call your PCP for advice or return to the ED immediately. Balance (trouble standing or walking), Eyes (trouble with vision), Face (facial droop), Arm (weakness/numbness/drifting of arm), Speech (trouble speaking), Time (act fast- go to ED) For the mild hyponatremia, please check a BMP in 2-3 days. Supervising Physician Co-Signing Physician Notes PA Supervision Note: I personally saw and examined the patient. I verified all gamboa points and agree with QUYNH Atkins with the following exceptions and/or additions: S-Pt feeling fine, still weak in RUE and with right facial droop and difficulty with speech if he doesn't think before he speaks O- Vitals reviewed Gen: [AAOx3, NAD] HEENT: [anicteric sclerae,right facial droop, +dysarthria] CV: [RRR no mgr nl S1S2] Pulm: [CTAB no wcr] Abd: [+BS soft NT ND no masses or hernias] Ext: [no edema] Skin: [no rashes, warm/dry] Neuro: [RUE 1/5 strength throughout, RLE 5/5 strength CBC, BMP reviewed A/P-84 yo male here with acute ischemic pontine CVA. With residual RUE weakness and dysarthria with facial droop Continue ASA, Xarelto, can start to lower BP cautiously to avoid hypoperfusion Total Time Total Time Spent Total Time Spent (In Minutes): 40 Total Time Includes: Examination of the Patient, Discharge Planning, Medication Reconciliation and Communication With Other Providers (Neurology) Coding [place] [address] INP/OBS DISCH >30 MIN Patient Type Established Medical Decision Making Moderate Complexity Diagnoses Acute CVA (cerebrovascular accident) I63.9 Paroxysmal atrial fibrillation I48.0 Enlarged prostate with lower urinary tract symptoms (LUTS) N40.1 Time Spent (min) 40
[2024-05-20 14:41] VITALS: PULSE 77
--- NOTE | 2024-05-21 06:04 | Electrocardiogram Report ---
Test Reason : Blood Pressure : */* mmHG Vent. Rate : 64 BPM Atrial Rate : 64 BPM P-R Int : 188 ms QRS Dur : 102 ms QT Int : 416 ms P-R-T Axes : 63 49 59 degrees QTcB Int : 429 ms Normal sinus rhythm Normal ECG When compared with ECG of 14-Sep-2023 00:16, Left bundle branch block is no longer Present Confirmed by Heladio Enriquez ([id number]) on 05/21/2024 6:04:41 AM Referred By: REFERRED SELF Confirmed By: Heladio Enriquez
--- NOTE | 2024-05-21 22:44 | Electrocardiogram Report ---
Test Reason : Blood Pressure : */* mmHG Vent. Rate : 69 BPM Atrial Rate : 69 BPM P-R Int : 194 ms QRS Dur : 100 ms QT Int : 422 ms P-R-T Axes : 8 31 6 degrees QTcB Int : 452 ms Normal sinus rhythm Possible Left atrial enlargement Borderline ECG When compared with ECG of 17-May-2024 14:11, Non-specific change in ST segment in Inferior leads T wave inversion now evident in Inferior leads Confirmed by Heladio Enriquez ([id number]) on 05/21/2024 10:44:40 PM Referred By: REFERRED SELF Confirmed By: Heladio Enriquez
== END 2024-05-20 15:13 | DRG 65 ==
LOC: ED 09:31 → 2S 11:15 → SUATTDRO 11:15 → 2S 11:49

== ENCOUNTER 2024-05-21 22:11 | Observation (INO) ==
[2024-05-21] MEDS: METOPROLOL TARTRATE 1 MG/ML VIAL IV STA (22:21)
--- NOTE | 2024-05-21 22:24 | Emergency Department Note ---
Impression & Plan Acute alteration in mental status, Atrial fibrillation with rapid ventricular response ED Provider Note NAME: KIM CARSON AGE: 84 SEX: M : 1940 ARRIVES VIA: Ambulance INFORMANT: Patient, EMS ED PROVIDER(S): Fabian Coleman DO CHIEF COMPLAINT: Strokelike symptoms HPI: The patient is an 84-year-old male who presented to the emergency department for an evaluation of strokelike symptoms. The patient had a stroke which was ischemic 3 days ago. The patient currently does take oral anticoagulants. He has a history of paroxysmal atrial fibrillation. He has been compliant with his outpatient medication regimen. Reportedly the patient was difficult to arouse and when he awoke his speech was not clear. The patient states he feels that he is at his baseline right now since the stroke. He denies having any headache or trauma. He denies having any chest pain or difficulty breathing. The patient was found by the prehospital personnel to be any rapid atrial fibrillation prior to arrival. ROS: See above HPI for pertinent positives & negatives. A total of 10 systems reviewed and were otherwise negative. PAST MEDICAL HISTORY: See Below PAST SURGICAL HISTORY: See Below FAMILY HISTORY: See Below SOCIAL HISTORY: See Below HOME MEDICATIONS: See Below ALLERGIES: See Below VITALS: See Below PHYSICAL EXAMINATION: GENERAL: Patient is awake alert in no acute distress patient is resting comfortably and showing no signs of anxiety EYES: The conjunctivae are clear. The pupils are round and reactive. EARS, NOSE, MOUTH AND THROAT: The nose is without any evidence of any deformity. NECK: The neck is nontender and supple. RESPIRATORY: Normal respiratory effort is noted there is no evidence of wheezing rhonchi or rales CARDIOVASCULAR: Regular heart sounds were noted to auscultation. There is also tachycardic heart sounds. GASTROINTESTINAL: The abdomen is soft. Abdomen is nontender. MUSCULOSKELETAL/EXTREMITIES: There is no evidence of gross deformity full range of motion is noted in the hips and shoulders. SKIN: There is no obvious evidence of any rash. There are no petechiae, pallor or cyanosis noted. NEUROLOGIC: Patient is awake alert and oriented x3. Speech is dysarthric. There is a right sided facial droop with forehead sparing. There is diminished marketing outreach coordinator strength in the right hand compared to the left. The patient is not able to lift the right leg off the greater than 5 seconds. MEDICAL DECISION MAKING: The patient is an 84-year-old male who was in our facility recently for an ischemic stroke. The patient was diagnosed with atrial fibrillation. He was started on blood thinners. He had an episode prior to coming to the emergency department. Where he had slurred speech and appeared to be having worsening weakness on his right side. Upon arrival the patient is awake and alert. He does have dysarthria however he states he was sleeping and they had trouble waking him up. He denies having any headache. His neurologic exam appears to be at baseline. He was found to have atrial fibrillation with RVR. He also has some variability to his conduction where he has narrow complex followed by runs of wide-complex. This does not appear to be consistent with ventricular tachycardia but rather atrial fibrillation with aberrancy. He does have previous EKGs that show a bundle branch block. I discussed patient's laboratory and radiographic studies with him. I discussed his condition with [facility]. It sounds though they are not comfortable the patient coming back with the A-fib and RVR. Because of this I will discuss the patient's condition with the on- call [facility] hospitalist. I did discuss this with the patient and he was agreeable to staying at this time. Triage Nursing notes reviewed. Prior medical records reviewed Vital Signs: reviewed and remarkable for tachycardia Differential diagnosis: Infection, dehydration, metabolic abnormality, hypo/hyperglycemia, electrolyte disturbance, anemia, hypoxia, cardiac sources, intracerebral event, toxicologic, neurologic, as well as other pathologies. ER treatment provided: See below Diagnostics interpreted by me: ECG: EKG was obtained in the emergency department. My interpretation is atrial fibrillation at 127 bpm. There were some complexes that were narrow and others were wide. This was compared to a tracing from May 21, 2024. Sinus rhythm and narrow complex has been replaced with atrial fibrillation and aberrant conduction. Cardiac Monitoring: An order was placed for continuous cardiac monitoring. The monitor shows a rate of 108 bpm with atrial fibrillation and RVR. Laboratory studies: As stated above and show below. Imaging studies: See below. Radiographic imaging was reviewed by myself Consultation(s): [facility] Luna [facility]. Past Med/Surg History Problem List (Updated 05/22/24 @ 01:39 by Fabian Coleman DO) Atrial fibrillation with rapid ventricular response (Acute) Acute alteration in mental status (Acute) Prostate cancer screening (Chronic) BPH w urinary obs/LUTS (Chronic) Acute right hemiparesis Acute CVA (cerebrovascular accident) A-fib (Acute) Current use of buttermaker anticoagulation (Acute) Stroke-like symptoms (Acute) Weakness (Acute) Weakness (Acute) Tendonitis of upper biceps tendon of right shoulder Right rotator cuff tendonitis 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 Paroxysmal atrial fibrillation Right shoulder pain Chronic SI joint pain Elevated TSH Hyponatremia Current use of proton pump inhibitor Vitamin D deficiency (Acute) Mild mitral regurgitation (Acute) Hypercholesterolemia (Acute) Essential hypertension (Acute) Nonerosive esophageal reflux disease (Acute) Enlarged prostate with lower urinary tract symptoms (LUTS) (Acute) Atrial fibrillation with normal ventricular rate (Acute) Sensorineural hearing loss of left ear (Acute) Exposure to COVID-19 virus Hyperglycemia Anxiety Surgical History History of cardiac radiofrequency ablation Family History Father , age 88 Cerebral atherosclerosis Coronary atherosclerosis Brother Lung cancer Mother , age 94 of uncertain causes No problems noted. Denies family history of Ovarian cancer Prostate cancer Myocardial infarction Breast cancer Colon cancer high risk Social History Smoking Status: Never smoker Second Hand Exposure: No; Do You Dip or Chew Tobacco: No; Hx Alcohol Use: Yes Alcohol type: hard liquor Alcohol type Comment: 1 or 2 ounces of bourbon each evening since age 48 Alcohol Intake Frequency: 4 or More x per/Week Hx Substance Use: No Preferred Language: Persian Communication Ability: Effective Visual Impairment: No Limitations Hearing Ability: Use of Hearing Aid Bus Mechanic Required: No Beliefs That Will Affect Care: None marital status: Current Living Situation: Alone current occupational status: retired current occupation: Retired, 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60, 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 Feels Safe at Home: Yes Childhood Exposure to Second-Hand Smoke: No Dental Care, Regularly: Yes Physical Activity Frequency: 3-4 Times per Week Seatbelt Use: always Sunscreen Use: Yes Assistive Devices: None Allergies Allergies Allergy/AdvReac Type Severity Reaction Status Date / Time iodine Allergy Mild Rash Verified 05/18/24 11:49 Home Meds Home Medications Medication Instructions Recorded Confirmed calcium 600 mg (as 1 tab PO DAILY 02/26/19 05/18/24 carbonate)-vitamin D3 5 mcg (200 unit) tablet polyethylene glycol 3350 17 17 gm PO DAILY PRN constipation 03/04/19 05/18/24 gram/dose oral powder (ClearLax) docusate sodium 100 mg tablet 100 mg PO DAILY #180 tabs 12/15/21 05/18/24 acetaminophen 500 mg tablet 500 mg PO TID PRN Pain/Fever 05/18/24 05/18/24 fluticasone propionate 50 1 - 2 spray intranasal DAILY 05/18/24 05/18/24 mcg/actuation nasal spray,suspension losartan 50 mg tablet See Rx Instructions .Route .COMPLEX 05/18/24 05/18/24 metoprolol succinate 25 mg 50 mg PO DAILY 05/18/24 05/18/24 tablet,extended release 24 hr [id number] 250 mg-dha 90 1 cap PO DAILY 05/18/24 05/18/24 mg-epa 160 [id number] capsule (Ocuvite Adult 50 Plus) Previous Rx's Medication Instructions Recorded rivaroxaban 20 mg tablet (Xarelto) 20 mg PO DAILY #90 tabs 11/05/23 amlodipine 5 mg tablet 5 mg PO DAILY #90 tabs 01/17/24 finasteride 5 mg tablet 5 mg PO DAILY #90 tabs 02/04/24 omeprazole 20 mg capsule,delayed 20 mg PO DAILY #90 caps 03/03/24 release simvastatin 10 mg tablet 10 mg PO QPM #90 tabs 05/01/24 Results & Data (ED) Vital Signs Vital Signs - 24 hr 05/21/24 22:13 05/21/24 22:21 05/21/24 22:24 Temperature 36.9 C Temperature Source Temporal Artery Scan Pulse Rate 137 H 150 H Pulse Rate [Right Finger] 127 H Pulse Rate from SpO2 Sensor Respiratory Rate 17 15 Respiratory Effort / Characteristics Non-Labored Spontaneous Respiratory Depth Normal Blood Pressure 139/101 H 138/103 H Blood Pressure [Right Arm] 149/81 H Blood Pressure Mean 113 Blood Pressure Mean [Right Arm] 103 Pulse Oximetry 96 95 Oxygen Delivery Method Room Air Room Air Sepsis Recent Fever Within 48 Hours No Sepsis New/Unexplained Change in Mental Status N/A Sepsis Action Taken by Nursing No Action Required 05/21/24 22:36 05/21/24 22:37 05/21/24 22:42 Temperature Temperature Source Pulse Rate 105 H 122 H Pulse Rate [Right Finger] 98 H Pulse Rate from SpO2 Sensor Respiratory Rate 19 Respiratory Effort / Characteristics Respiratory Depth Blood Pressure Blood Pressure [Right Arm] 123/94 Blood Pressure Mean Blood Pressure Mean [Right Arm] 103 Pulse Oximetry 95 Oxygen Delivery Method Room Air Sepsis Recent Fever Within 48 Hours Sepsis New/Unexplained Change in Mental Status Sepsis Action Taken by Nursing 05/21/24 22:45 05/21/24 23:00 05/21/24 23:15 Temperature Temperature Source Pulse Rate 102 H 110 H 110 H Pulse Rate [Right Finger] Pulse Rate from SpO2 Sensor 102 H 107 H Respiratory Rate 15 15 20 Respiratory Effort / Characteristics Respiratory Depth Blood Pressure 117/78 121/71 115/78 Blood Pressure [Right Arm] Blood Pressure Mean 91 87 85 Blood Pressure Mean [Right Arm] Pulse Oximetry 95 96 96 Oxygen Delivery Method Room Air Sepsis Recent Fever Within 48 Hours Sepsis New/Unexplained Change in Mental Status Sepsis Action Taken by Nursing 05/21/24 23:30 05/21/24 23:45 05/22/24 00:16 Temperature Temperature Source Pulse Rate 118 H 116 H 118 H Pulse Rate [Right Finger] Pulse Rate from SpO2 Sensor 109 H Respiratory Rate 18 20 16 Respiratory Effort / Characteristics Respiratory Depth Blood Pressure 115/80 134/98 122/99 Blood Pressure [Right Arm] Blood Pressure Mean 91 102 109 Blood Pressure Mean [Right Arm] Pulse Oximetry 91 96 95 Oxygen Delivery Method Sepsis Recent Fever Within 48 Hours Sepsis New/Unexplained Change in Mental Status Sepsis Action Taken by Nursing 05/22/24 00:25 Temperature Temperature Source Pulse Rate Pulse Rate [Right Finger] Pulse Rate from SpO2 Sensor Respiratory Rate Respiratory Effort / Characteristics Respiratory Depth Blood Pressure Blood Pressure [Right Arm] Blood Pressure Mean Blood Pressure Mean [Right Arm] Pulse Oximetry 96 Oxygen Delivery Method Room Air Sepsis Recent Fever Within 48 Hours Sepsis New/Unexplained Change in Mental Status Sepsis Action Taken by [facility] Medications Current Medication List: was personally reviewed by me Laboratory Data Attestation: I reviewed the patient's lab results. 05/21/24 22:13 05/21/24 22:13 Lab Results 05/21/24 05/21/24 05/22/24 Range/Units 22:13 22:15 00:09 WBC 9.97 (4.8-10.8) K/ul RBC 5.59 (4.70-6.10) M/uL Hgb 17.1 (14.0-18.0) g/dl Hct 49.7 (42.0-52.0) % MCV 88.9 (80.0-100.0) fL MCH 30.6 (25.0-34.0) pg MCHC 34.4 (32.0-36.0) g/dL RDW Std Deviation 44.1 (36.4-46.3) fL RDW Coeff of Gypsy 13.6 (11.5-14.5) % Plt Count 290 (130-400) K/uL MPV 9.9 (9.4-12.4) fL Immature Gran % (Auto) 0.4 % Neut % (Auto) 72.0 % Lymph % (Auto) 13.9 % Lander % (Auto) 13.0 % Eos % (Auto) 0.3 % Baso % (Auto) 0.4 % Neut # (Auto) 7.17 H (1.40-6.50) K/uL Lymph # (Auto) 1.39 (1.20-3.40) K/uL Lander # (Auto) 1.30 H (0.11-0.59) K/uL Eos # (Auto) 0.03 (0.00-0.50) K/uL Baso # (Auto) 0.04 (0.00-0.20) K/uL Immature Gran # (Auto) 0.04 (0.01-0.20) K/uL PT 12.5 H (9.0-12.0) Seconds INR 1.2 H (0.9-1.1) APTT 32 H (21-31) Seconds PTT Ratio 1.2 Sodium 131 L (136-145) mmol/L Potassium 4.2 (3.5-5.1) mmol/L Chloride 99 (98-107) mmol/L Carbon Dioxide 22 (21-32) mmol/L Anion Gap 10 (3-11) BUN 21 (6-23) mg/dl Creatinine 1.18 D (0.6-1.4) mg/dl Est Cr Clr Drug Dosing 49.8 ml/min eGFR 60.09 BUN/Creatinine Ratio 17.8 (10-20) Glucose 126 H (70-99(Fasting)) mg/dl POC Glucose 108 H (70-99) mg/dl Calcium 9.9 (8.6-10.3) mg/dl Magnesium 1.9 (1.7-2.4) mg/dl Total Bilirubin 0.8 (0.2-1.0) mg/dl AST 40 H (13-39) U/L ALT 38 (7-52) U/L Alkaline Phosphatase 35 (34-104) U/L Troponin I High Sens 21.2 H 24.7 H (0-20) pg/ml Total Protein 7.0 (6.0-8.3) gm/dl Albumin 4.2 (3.4-5.0) gm/dl Globulin 2.8 (2.5-4.0) gm/dl Albumin/Globulin Ratio 1.5 (0.9-2) Administered Medications Discontinued Medications Sodium Chloride (Nss) 500 mls @ 999 mls/hr IV .Q31M ONE Stop: 05/22/24 02:07 Last Admin: 05/22/24 01:40 Dose: 999 mls/hr Documented By: SHANT Metoprolol Tartrate (Metoprolol Tartrate 1 Mg/Ml Vial) 5 mg IV NOW STA Stop: 05/21/24 22:17 Last Admin: 05/21/24 22:21 Dose: 5 mg Documented By: VELMA Metoprolol Tartrate (Metoprolol Tartrate 1 Mg/Ml Vial) 5 mg IV NOW STA Stop: 05/22/24 01:32 Last Admin: 05/22/24 01:37 Dose: 5 mg Documented By: SHANT Imaging Data Attestation: I personally reviewed and interpreted this imaging study as follows: My Impression: 1 view chest x-ray was obtained in the emergency department. My interpretation is no free air or definite infiltrate, there was a tortuous aorta, final report below. CT the brain was obtained in the emergency department. My interpretation is no intracranial hemorrhage or mass effect, final report below. Radiologist's Impression: Head CT 05/21/24 22:16 Exam(s): CT HEAD Without Contrast EXAM: CT Head Without Intravenous Contrast CLINICAL HISTORY: Reason for exam: neuro deficit, acute stroke suspected. TECHNIQUE: Axial computed tomography images of the head/brain without intravenous contrast. CTDI is 38.55 mGy and DLP is 625.8 mGy-cm. Automated exposure control was utilized for the study. A dose lowering technique was utilized adhering to the principles of ALARA. COMPARISON: Head CT dated 05/19/24, MRI brain dated 05/18/2024 FINDINGS: Brain: Small low-density focus in the peripheral left mid brain/cerebral peduncle corresponds to evolving infarct, which is better seen on the prior MRI. No hemorrhage. Ventricles: Unremarkable. No ventriculomegaly. Bones/joints: Unremarkable. No acute fracture. Soft tissues: Unremarkable. Sinuses: Unremarkable as visualized. No acute sinusitis. Mastoid air cells: Unremarkable as visualized. No mastoid effusion. IMPRESSION: 1. No significant interval change. No evidence of acute abnormality. 2. Small low-density focus in the peripheral left mid brain/cerebral peduncle corresponds to evolving infarct, which is better seen on the prior MRI. Electronically signed by: Dede Troncoso M.D. 05/22/24 00:35 AM Discharge Plan Visit Data Chief Complaint: Stroke/CVA Symptoms Stated Complaint: STROKE SYMTOMS ED Provider: Fabian Coleman Discharge Problem: Acute alteration in mental status, Atrial fibrillation with rapid ventricular response Patient Disposition: Being Evaluated by Hospitalist Forms Stand Alone Forms: My [facility] [employer] Prescriptions Prescriptions: No Action Xarelto 20 mg tablet 20 mg PO DAILY Qty: 90 3RF amlodipine 5 mg tablet 5 mg PO DAILY Qty: 90 3RF finasteride 5 mg tablet 5 mg PO DAILY Qty: 90 3RF omeprazole 20 mg capsule,delayed release(DR/EC) 20 mg PO DAILY Qty: 90 3RF simvastatin 10 mg tablet 10 mg PO QPM Qty: 90 3RF calcium carbonate-vitamin D3 600 mg(1,500mg) -200 unit tablet 1 tab PO DAILY polyethylene glycol 3350 [ClearLax] 17 gram/dose powder 17 gm PO DAILY PRN (Reason: constipation) docusate sodium 100 mg tablet 100 mg PO DAILY Qty: 180 Ocuvite Adult 50 Plus 250 mg (90 mg-160 mg) Capsule 1 cap PO DAILY losartan 50 mg tablet See Rx Instructions .ROUTE .COMPLEX Rx Instructions: Take 50mg by mouth in the morning and 100mg by mouth in the evening. metoprolol succinate 25 mg tablet extended release 24 hr 50 mg PO DAILY fluticasone propionate 50 mcg/actuation spray,suspension 1 - 2 spray intranasal DAILY Rx Instructions: USE 1 TO 2 SPRAYS IN EACH NOSTRIL ONCE DAILY acetaminophen 500 mg Tablet 500 mg PO TID PRN (Reason: Pain/Fever) Referrals Referrals: Fabian Sullivan MD [Primary Care Provider] -
[2024-05-21 22:45] LABS: Basophils # (auto) 0.04 K/uL (0.00-0.20); Basophils % (auto) 0.4 %; Eosinophils # (auto) 0.03 K/uL (0.00-0.50); Eosinophils % (auto) 0.3 %; Hematocrit (blood only) 49.7 % (42.0-52.0); Hemoglobin 17.1 g/dl (14.0-18.0); Immature Granulocytes # (auto) 0.04 K/uL (0.01-0.20); Immature Granulocytes % (auto) 0.4 %; Lymphocytes # (auto) 1.39 K/uL (1.20-3.40); Lymphocytes % (auto) 13.9 %; Mean Corpuscular Hemoglobin 30.6 pg (25.0-34.0); Mean Corpuscular Hgb Conc 34.4 g/dL (32.0-36.0); Mean Corpuscular Volume 88.9 fL (80.0-100.0); Mean Platelet Volume 9.9 fL (9.4-12.4); Neutrophils # (auto) 7.17 K/uL (1.40-6.50); Platelet Count 290 K/uL (130-400); RDW Coefficient of Variation 13.6 % (11.5-14.5); RDW Standard Deviation 44.1 fL (36.4-46.3); Red Blood Count 5.59 M/uL (4.70-6.10); White Blood Count 9.97 K/ul (4.8-10.8)
[2024-05-21 22:49] LABS: Albumin Globulin Ratio 1.5 (0.9-2); Albumin Level 4.2 gm/dl (3.4-5.0); BUN Creatinine Ratio 17.8 (10-20); Bilirubin,Total 0.8 mg/dl (0.2-1.0); Calcium 9.9 mg/dl (8.6-10.3); Creatinine Clr Calc Pharmacy 49.8 ml/min; Globulin 2.8 gm/dl (2.5-4.0); Magnesium 1.9 mg/dl (1.7-2.4); Potassium 4.2 mmol/L (3.5-5.1)
[2024-05-21 22:56] LABS: Troponin I High Sensitivity 21.2 pg/ml (0-20)
[2024-05-21 23:30] LABS: INR 1.2 (0.9-1.1); Partial Thromboplastin Ratio 1.2; Partial Thromboplastin Time 32 Seconds (21-31); Prothrombin Time 12.5 Seconds (9.0-12.0)
--- NOTE | 2024-05-22 00:35 | CT Scan Report ---
Exam(s): CT HEAD Without Contrast EXAM: CT Head Without Intravenous Contrast CLINICAL HISTORY: Reason for exam: neuro deficit, acute stroke suspected. TECHNIQUE: Axial computed tomography images of the head/brain without intravenous contrast. CTDI is 38.55 mGy and DLP is 625.8 mGy-cm. Automated exposure control was utilized for the study. A dose lowering technique was utilized adhering to the principles of ALARA. COMPARISON: Head CT dated 05/19/24, MRI brain dated 05/18/2024 FINDINGS: Brain: Small low-density focus in the peripheral left mid brain/cerebral peduncle corresponds to evolving infarct, which is better seen on the prior MRI. No hemorrhage. Ventricles: Unremarkable. No ventriculomegaly. Bones/joints: Unremarkable. No acute fracture. Soft tissues: Unremarkable. Sinuses: Unremarkable as visualized. No acute sinusitis. Mastoid air cells: Unremarkable as visualized. No mastoid effusion. IMPRESSION: 1. No significant interval change. No evidence of acute abnormality. 2. Small low-density focus in the peripheral left mid brain/cerebral peduncle corresponds to evolving infarct, which is better seen on the prior MRI. Electronically signed by: Dede Troncoso M.D. 05/22/24 00:35 AM
[2024-05-22] MEDS: METOPROLOL TARTRATE 1 MG/ML VIAL IV STA (01:37)
[2024-05-22] MEDS: SODIUM CHLORIDE 0.9% 500 ML IV ONE (01:40)
[2024-05-22 02:29] LABS: Appearance Urine Clear (Clear); Bacteria Urine Automated None Seen (None Seen); Bilirubin Urine Negative (Negative); Blood Urine Negative (Negative); Color Urine Yellow; Epithelial Cell Urine Auto 0-2 /hpf (0-2); Glucose Urine UA Negative (Negative); Ketones Urine 1+ (Negative); Leukocyte Esterase Urine Negative (Negative); Nitrite Urine Negative (Negative); Protein Urine 1+ (Negative); RBC Urine Automated 0-2 /hpf (0-2); Specific Gravity Urine 1.022 (1.000-1.030); Urobilinogen Urine Negative (Negative); WBC Urine Automated 0-5 /hpf (0-5); pH Urine 5.5 (4.5-7.5)
--- NOTE | 2024-05-22 02:42 | History & Physical Report ---
Date of Service May 22, 2024 Assessment & Plan (1) Atrial fibrillation with rapid ventricular response: (2) BPH w urinary obs/LUTS: (3) Acute right hemiparesis: (4) Acute CVA (cerebrovascular accident): (5) Current use of long term care social worker anticoagulation: Plan Atrial Fibrillation with Rapid Ventricular Response -History of paroxysmal atrial fibrillation -EKG in ED showing aFib with RVR, rates varrying from 100s-130s -Received IV Lopressor 5mg x2 in ED -Patient is asymptomatic, states he goes "in and out of aFib" but states his heart rate usually only goes up to 100 -Continue Xarelto, Metoprolol Succinate -Will defer further Lopressor IV at this time, added IVF as patient endorses it being difficult to eat and drink as much as before with his right sided deficits -Recheck metabolic panel, magnesium level in a.m. -Monitor on telemetry Recent CVA- left midbrain/cerebral peduncle stroke | Right Sided Deficits -CT obtained which shows "small low-density focus in the peripheral left mid brain/cerebral peduncle corresponds to evolving infarct, which is better seen on the prior MRI", no acute abnormalities -After discussion with patient, physical exam, and review of documentation from recent admission, I do not see a reason to repeat brain MRI or CTA head/neck studies at this time -Continue statin, Plavix, aspirin per neurology recommendations -[facility] staff had concerns that he had altered mental status, however patient states he had just completed more than 3 hours of physical rehab and was exhausted which was why he felt it was "harder" to wake him up -Pt feels that his symptoms are the same they were at the time of discharge -Patient is eager to return to [facility] and resume therapy, but there is some concern with his physical condition and current deficits as to whether he would be physically able to tolerate an ongoing stay at [facility] with many hours of rehab per day. PT/OT evals ordered Elevated Troponin -Trop 21.2 -> 24.7. Will order repeat trop -Patient asymptomatic, denies chest pain or shortness of breath -Suspect this could be secondary to demand ischemia Admit to med/tele Diet: Heart healthy VTE Prophylaxis: Xarelto Code Status: Full Code History of Present Illness Primary Care Provider: Fabian Sullivan MD Kimberlyn Ventura is a 84 year-old male who presented to the ED from [facility] and an episode of being "unresponsive". Patient has medical history significant for paroxysmal atrial fibrillation, history of CVA with right sided deficits, BPH, HTN. Patient states that he was discharge from [facility] to [facility] on 05/20 after admission for acute left midbrain/cerebral peduncle ischemic stroke. Patient states that he had finished his first day at [facility] and completed over 3 hours of physical and occupational therapy, states he was completely exhausted and was laying in bed and fell asleep. He states that staff tried to wake him but he said since he was so tired it was difficult to wake up, outside facility reports he was "unresponsive". Patient states he feels "fine" and is "the same" as when he left [facility] the day prior, he is just tired. Patient denies chest pain or shortness of breath. ED Course: -CBC, CMP, trop -CT head -IV Lopressor 5mg x2, 500mL bolus NSS Allergies Allergy/AdvReac Type Severity Reaction Status Date / Time iodine Allergy Mild Rash Verified 05/18/24 11:49 Home Medications Medication Instructions Recorded Confirmed Type calcium 600 mg (as 1 tab PO DAILY 02/26/19 05/22/24 History carbonate)-vitamin D3 5 mcg (200 unit) tablet polyethylene glycol 3350 17 17 gm PO DAILY PRN constipation 03/04/19 05/22/24 History gram/dose oral powder (ClearLax) docusate sodium 100 mg tablet 100 mg PO DAILY #180 tabs 12/15/21 05/22/24 History rivaroxaban 20 mg tablet (Xarelto) 20 mg PO DAILY #90 tabs 11/05/23 05/22/24 Rx amlodipine 5 mg tablet 5 mg PO DAILY #90 tabs 01/17/24 05/22/24 Rx finasteride 5 mg tablet 5 mg PO DAILY #90 tabs 02/04/24 05/22/24 Rx omeprazole 20 mg capsule,delayed 20 mg PO DAILY #90 caps 03/03/24 05/22/24 Rx release simvastatin 10 mg tablet 10 mg PO QPM #90 tabs 05/01/24 05/22/24 Rx acetaminophen 500 mg tablet 500 mg PO TID PRN Pain/Fever 05/18/24 05/22/24 History fluticasone propionate 50 1 - 2 spray intranasal DAILY 05/18/24 05/22/24 History mcg/actuation nasal spray,suspension losartan 50 mg tablet See Rx Instructions .Route .COMPLEX 05/18/24 05/22/24 History metoprolol succinate 25 mg 50 mg PO DAILY 05/18/24 05/22/24 History tablet,extended release 24 hr [id number] 250 mg-dha 90 1 cap PO DAILY 05/18/24 05/22/24 History mg-epa 160 aa-voey-[id number]-zeax capsule (Ocuvite Adult 50 Plus) Past Med/Surg History Problem List (Updated 05/22/24 @ 01:39 by Fabian Coleman DO) Atrial fibrillation with rapid ventricular response (Acute) Acute alteration in mental status (Acute) Prostate cancer screening (Chronic) BPH w urinary obs/LUTS (Chronic) Acute right hemiparesis Acute CVA (cerebrovascular accident) A-fib (Acute) Current use of long term care social worker anticoagulation (Acute) Stroke-like symptoms (Acute) Weakness (Acute) Weakness (Acute) Tendonitis of upper biceps tendon of right shoulder Right rotator cuff tendonitis 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 Paroxysmal atrial fibrillation Right shoulder pain Chronic SI joint pain Elevated TSH Hyponatremia Current use of proton pump inhibitor Vitamin D deficiency (Acute) Mild mitral regurgitation (Acute) Hypercholesterolemia (Acute) Essential hypertension (Acute) Nonerosive esophageal reflux disease (Acute) Enlarged prostate with lower urinary tract symptoms (LUTS) (Acute) Atrial fibrillation with normal ventricular rate (Acute) Sensorineural hearing loss of left ear (Acute) Exposure to COVID-19 virus Hyperglycemia Anxiety Surgical History History of cardiac radiofrequency ablation Family History Father , age 88 Cerebral atherosclerosis Coronary atherosclerosis Brother Lung cancer Mother , age 94 of uncertain causes No problems noted. Denies family history of Ovarian cancer Prostate cancer Myocardial infarction Breast cancer Colon cancer high risk Social History Smoking Status: Never smoker Second Hand Exposure: No; Do You Dip or Chew Tobacco: No; Hx Alcohol Use: No Hx Substance Use: No Preferred Language: Swazi Communication Ability: Effective Visual Impairment: No Limitations Hearing Ability: Use of Hearing Aid Diet Kitchen Cook Required: No Beliefs That Will Affect Care: None marital status: Current Living Situation: Rehab Current Living Situation Comment: [facility] current occupational status: retired current occupation: Retired, 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60, 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 Feels Safe at Home: Yes Safety Concerns: Feels Safe At This Time Childhood Exposure to Second-Hand Smoke: No Dental Care, Regularly: Yes Physical Activity Frequency: 3-4 Times per Week Seatbelt Use: always Sunscreen Use: Yes Assistive Devices: None Review of Systems Review of Systems: As per above Physical Exam Constitutional: comfortable; no acute distress Eyes: + anicteric sclerae and PERRL; no conjun ctival abnormality ENMT: Ears: no external ear abnormality Nose: no external nose abnormality Moist mucous membranes Respiratory: normal respiratory effort, lungs clear to auscultation Cardiovascular: Rate/Rhythm: + irregularly irregular No lower extremity edema Gastrointestinal (Abdomen): Abdomen soft, nontender and nondistended. Skin: no rashes, warm and dry Neurologic: Slight right sided facial droop. Facial sensation intact bilaterally. Decreased ability to shrug right shoulder. Right upper extremity strength 1/5. Left upper and lower extremity strength 5/5. Right lower extremity 3/5 hip flexion. Speech slightly slurred. Patient alert and oriented Psychiatric: A+Ox3, euthymic affect Results & Data Results & Data Vital Signs (Past 12 Hours) Vital Signs Temp Pulse Pulse Resp BP BP Pulse Ox 05/22/24 00:25 96 05/22/24 00:16 118 H 16 122/99 95 05/21/24 23:45 116 H 20 134/98 96 05/21/24 23:30 118 H 18 115/80 91 05/21/24 23:15 110 H 20 115/78 96 05/21/24 23:00 110 H 15 121/71 96 05/21/24 22:45 102 H 15 117/78 95 05/21/24 22:42 122 H 05/21/24 22:37 98 H 19 123/94 95 05/21/24 22:36 105 H 05/21/24 22:24 127 H 15 149/81 H 95 05/21/24 22:21 150 H 138/103 H 05/21/24 22:13 36.9 C 137 H 17 139/101 H 96 O2 Del Method 05/22/24 00:25 Room Air 05/22/24 00:16 05/21/24 23:45 05/21/24 23:30 05/21/24 23:15 05/21/24 23:00 05/21/24 22:45 Room Air 05/21/24 22:42 05/21/24 22:37 Room Air 05/21/24 22:36 05/21/24 22:24 Room Air 05/21/24 22:21 05/21/24 22:13 Room Air Diagnostic Findings Head CT 05/21/24 22:16 Exam(s): CT HEAD Without Contrast EXAM: CT Head Without Intravenous Contrast CLINICAL HISTORY: Reason for exam: neuro deficit, acute stroke suspected. TECHNIQUE: Axial computed tomography images of the head/brain without intravenous contrast. CTDI is 38.55 mGy and DLP is 625.8 mGy-cm. Automated exposure control was utilized for the study. A dose lowering technique was utilized adhering to the principles of ALARA. COMPARISON: Head CT dated 05/19/24, MRI brain dated 05/18/2024 FINDINGS: Brain: Small low-density focus in the peripheral left mid brain/cerebral peduncle corresponds to evolving infarct, which is better seen on the prior MRI. No hemorrhage. Ventricles: Unremarkable. No ventriculomegaly. Bones/joints: Unremarkable. No acute fracture. Soft tissues: Unremarkable. Sinuses: Unremarkable as visualized. No acute sinusitis. Mastoid air cells: Unremarkable as visualized. No mastoid effusion. IMPRESSION: 1. No significant interval change. No evidence of acute abnormality. 2. Small low-density focus in the peripheral left mid brain/cerebral peduncle corresponds to evolving infarct, which is better seen on the prior MRI. Electronically signed by: Dede Troncoso M.D. 05/22/24 00:35 AM Supervising Physician Co-Signing Physician Notes Attending addendum: I have physically seen this patient, have supervised the medical residents activities, and agree with the H&P unless as otherwise noted. Assessment and Plan: Elevated troponin/atrial fibrillation with RVR/PAF/long-term anticoagulation/hypertension- The patient will be admitted to telemetry for serial cardiac enzymes, serial EKG's, cardiac rhythm monitoring and a 2-D echocardiogram with Dopplers. Status post Lopressor 5 mg IV x 2 from the ED Initial troponin 21.2, with follow-up 24.7, likely secondary to increased heart rate Continue metoprolol succinate, losartan and Xarelto Hold amlodipine in favor of increasing negative inotropes Recent CVA- Diagnosed during most recent admission from 05/18-05/20/2024 MRI of brain without contrast 05/18 revealed a left pontine infarct without hemorrhage CT head this evening notes the same infarct, and no hemorrhagic conversion Continue aspirin and clopidogrel Disposition- Patient had been discharged to [facility] after [facility] admission Suspect his recent flare with A-fib with RVR, question of unresponsive episode, and fatigue is likely secondary to aggressive rehab Patient is interested in returning to [facility], but may benefit from a less aggressive therapy program there or otherwise Consult PT/OT for reassessment Resident Activity Tracking Resident Involvement: Resident Care Provided Care Provided: Adult Hospital Medicine
[2024-05-22] MEDS ORDERED: ONDANSETRON INJ 2 MG/ML 2 ML VIAL IV PRN (02:48)
[2024-05-22] MEDS: MELATONIN 3 MG TAB PO PRN (03:06)
[2024-05-22] MEDS: PLASMA-LYTE A 1,000 ML IV SCH (04:19)
[2024-05-22 07:07] LABS: Basophils # (auto) 0.05 K/uL (0.00-0.20); Basophils % (auto) 0.5 %; Eosinophils # (auto) 0.06 K/uL (0.00-0.50); Eosinophils % (auto) 0.7 %; Hematocrit (blood only) 49.2 % (42.0-52.0); Hemoglobin 16.9 g/dl (14.0-18.0); Immature Granulocytes # (auto) 0.03 K/uL (0.01-0.20); Immature Granulocytes % (auto) 0.3 %; Lymphocytes % (auto) 20.6 %; Mean Corpuscular Hemoglobin 30.8 pg (25.0-34.0); Mean Corpuscular Hgb Conc 34.3 g/dL (32.0-36.0); Mean Corpuscular Volume 89.6 fL (80.0-100.0); Mean Platelet Volume 9.9 fL (9.4-12.4); Monocytes # (auto) 1.16 K/uL (0.11-0.59); Monocytes % (auto) 12.6 %; Neutrophils # (auto) 6.03 K/uL (1.40-6.50); Neutrophils % (auto) 65.3 %; Platelet Count 265 K/uL (130-400); RDW Coefficient of Variation 13.6 % (11.5-14.5); Red Blood Count 5.49 M/uL (4.70-6.10); White Blood Count 9.23 K/ul (4.8-10.8)
[2024-05-22 07:27] LABS: Albumin Level 3.8 gm/dl (3.4-5.0); Bilirubin,Total 0.7 mg/dl (0.2-1.0); Calcium 8.9 mg/dl (8.6-10.3); Magnesium 1.9 mg/dl (1.7-2.4); Potassium 4.2 mmol/L (3.5-5.1)
[2024-05-22 07:32] LABS: Albumin Globulin Ratio 1.7 (0.9-2); BUN Creatinine Ratio 19.4 (10-20); Creatinine Clr Calc Pharmacy 63.2 ml/min; Globulin 2.3 gm/dl (2.5-4.0); Total Protein 6.1 gm/dl (6.0-8.3)
--- NOTE | 2024-05-22 07:39 | XRay Report ---
XR chest 1V portable CLINICAL HISTORY: neuro deficit, acute stroke suspected TECHNIQUE: Single frontal radiograph of the chest was obtained. Comparison: Comparison is made to chest radiograph 09/14/2023 FINDINGS: No lines and tubes are seen. Cardiomegaly is noted. The lungs are clear. No evidence of pleural effus ion or pneumothorax. IMPRESSION: No acute chest disease. ACT 112: Negative or not required by law. Electronically signed by: Ashu Arzate M.D. 05/22/2024 7:38 AM
[2024-05-22] MEDS: PANTOprazole 40 MG TAB PO SCH (09:15)
[2024-05-22] MEDS: FINASTERIDE 5 MG TAB PO SCH (09:15)
[2024-05-22] MEDS: amLODIPine BESYLATE 5 MG TAB PO SCH (09:15)
[2024-05-22] MEDS: METOPROLOL SUCC 50MG EXT REL TAB PO SCH (09:15)
[2024-05-22] MEDS: ACETAMINOPHEN 325 MG TAB PO PRN (09:23)
--- NOTE | 2024-05-22 12:48 | Hospitalist Progress Note ---
Date of Service May 22, 2024 Assessment & Plan (1) Atrial fibrillation with rapid ventricular response: Plan: 84-year-old M h/o PAF on metoprolol and Xarelto, had presented to ED from [facility] after being "unresponsive", the patient states he was just tired and s leeping. Automatic Drilling Machine Operator is Dr. Stevens, last visit 10/25/23 with [facility]. - EKG: HR 127, A-fib with RVR - Asymptomatic, states he goes "in and out of aFib" - Continue Xarelto - Continue Metoprolol Succinate 50 mg qd - Hold Losartan to allow for expanded range of BP control to be possible in the case that beta ty dose needs to be adjusted - CMP grossly WNL; Na 134, Alk phos 31; Mg 1.9 - Troponin 21.2-> 19.3; pending repeat; no chest pain, SOB, or signs of ischemia; suspect secondary to demand ischemia - Achieving better rate control; plan to monitor overnight (2) Acute CVA (cerebrovascular accident): Plan: Recent inpt stay 05/18-05/20 for acute left midbrain/cerebral peduncle stroke; residual right hemiparesis (RUE, mild RLE), dysarthria, and facial droop on R side. - CT 05/21: small low-density focus in the peripheral left mid brain/cerebral peduncle corresponds to evolving infarct, which is better seen on the prior MRI; no acute abnormalities - Neurological findings on exam today similar or improved from recent discharge exam; stable and no new deficits - No current indications for additional MRI/CTA - Continue statin, Plavix, aspirin per neurology recommendations - Denies new symptoms, states he feels fine and would like to resume therapy rather than prolonging duration of time without - PT/OT (3) BPH w urinary obs/LUTS: Plan: On finasteride at home - No LUTS or dysuria - UA: 1+ protein, 1+ ketones, less than 5 WBC, less than 2 RBC, 6-10 hyaline cast less than 2 epithelial cells Plan PT/OT Dispo: Pending rate/rhythm control VTE Prophylaxis: Xarelto Code: Full Admission and Anticipated Discharge Date Admission Date: May 22, 2024 Supervising Physician Co-Signing Physician Notes Attending Attestation - Chart reviewed in detail, care plan d/w QUYNH Atkins. I agree w/ the gamboa components of her documentation. No episodes of lethargy or altered mental status while here. Fortunately he spontaneously converted back to NSR today. Will watch overnight for any a.fib recurrence. Owen Bond MD Subjective Patient sitting up in bed at time of visit. States that he has no symptoms, was just feeling tired because he has not slept well. Denies new neurological symptoms, feels as though residual symptoms of previous stroke are at baseline versus improving, but have not worsened. Denies chest pain, shortness of breath, palpitations, N/V/D/C, abdominal pain, dysphagia, headache, vision changes, numbness/tingling, or new weakness. Nurse had concerns regarding patient's swallow study results; nurse had spoken with patient and patient's son, Alfie, both of which states that the patient has been having no difficulties with solid foods or swallowing. We discussed that after a successful water swallow trial, patient okay to maintain on easy to chew diet and p.o. meds. HR 90, irregularly irregular Review of Systems Review of Systems: All systems reviewed & are unremarkable except as noted in Subjective Physical Exam Physical Exam: General: No acute distress, well developed. Head: Normocephalic, atraumatic Eyes: PERRL Neck: Supple, no LAD; no JVD Cardio: Regular rate, irregularly irregular rhythm, no G/R, S1 and S2 normal; RUSB murmur Resp: Chest wall symmetric, normal respiratory effort; No respiratory distress, Lungs CTA in all lobes bilaterally, no wheezes, rales, or rhonchi Abdomen: Soft, symmetric, nontender; No masses or hepatosplenomegaly MSK: No deformities, strength equal and symmetric, full ROM throughout; sensation normal to UE/LE. Pulses palpable and equal Neuro: Muscle strength 5/5 bilaterally in UE/LE; Sensation intact bilaterally; CN intact - Awake + alert, mild dysarthria - R sided facial droop ongoing however i mproving from last visit; able to puff out cheeks, weakly smile, and stick out tongue. - RUE without good movement, lower aspec t with more weakness than upper but improving. - RLE with improving movement, strength greater in proximal aspect vs distal - LUE + LLE with 5/5 strength Psych: Appropriate mood and affect; good judgement and insight. Results & Data Results & Data Vital Signs (Past 12 Hours) Vital Signs Pulse Pulse Pulse Resp BP BP Pulse Ox 05/22/24 11:31 90 18 111/61 94 05/22/24 07:21 108 H 05/22/24 07:13 112 H 18 129/95 95 05/22/24 06:00 106 H 20 108/73 98 05/22/24 04:29 05/22/24 03:08 106 H 134/105 H Pulse Ox O2 Del Method O2 Del Method 05/22/24 11:31 Room Air 05/22/24 07:21 05/22/24 07:13 Room Air 05/22/24 06:00 Room Air 05/22/24 04:29 97 Room Air 05/22/24 03:08 PG Care Time/CCT Total # of Minutes Spent Total Time Spent with Patient: Total time spent is greater than 50% in coordination of care (as documented) at patient's floor/unit and/or counseling patient: Coding Level of Care Code 43148 SUB INP/OBS CARE 2/35MIN Diagnoses Atrial fibrillation with rapid ventricular response I48.91 Acute CVA (cerebrovascular accident) I63.9 BPH w urinary obs/LUTS N40.1; N13.8 Time Spent (min) 45
[2024-05-22] MEDS: RIVAROXABAN 20 MG TAB PO SCH (18:43)
--- NOTE | 2024-05-22 19:44 | Billing Data ---
Date of Service May 22, 2024 Coding Level of Care Code 67746 INT INP/OBS CARE
[2024-05-22] MEDS: SIMVASTATIN 10 MG TAB PO SCH (20:41)
[2024-05-22] MEDS ORDERED: LOSARTAN POTASSIUM 50 MG TAB PO SCH (21:00)
[2024-05-22] MEDS: MAGNESIUM SULFATE / D5W 1 GM/100 ML BAG IV SCH (23:33)
[2024-05-23 06:58] LABS: Basophils # (auto) 0.05 K/uL (0.00-0.20); Basophils % (auto) 0.7 %; Eosinophils # (auto) 0.07 K/uL (0.00-0.50); Hematocrit (blood only) 45.8 % (42.0-52.0); Hemoglobin 15.8 g/dl (14.0-18.0); Immature Granulocytes # (auto) 0.02 K/uL (0.01-0.20); Immature Granulocytes % (auto) 0.3 %; Lymphocytes # (auto) 1.41 K/uL (1.20-3.40); Lymphocytes % (auto) 19.3 %; Mean Corpuscular Hemoglobin 30.8 pg (25.0-34.0); Mean Corpuscular Hgb Conc 34.5 g/dL (32.0-36.0); Mean Corpuscular Volume 89.3 fL (80.0-100.0); Mean Platelet Volume 9.8 fL (9.4-12.4); Monocytes # (auto) 0.71 K/uL (0.11-0.59); Monocytes % (auto) 9.7 %; Neutrophils # (auto) 5.05 K/uL (1.40-6.50); Platelet Count 271 K/uL (130-400); RDW Coefficient of Variation 13.6 % (11.5-14.5); RDW Standard Deviation 44.7 fL (36.4-46.3); Red Blood Count 5.13 M/uL (4.70-6.10); White Blood Count 7.31 K/ul (4.8-10.8)
[2024-05-23 07:15] LABS: Albumin Globulin Ratio 1.6 (0.9-2); Albumin Level 3.9 gm/dl (3.4-5.0); BUN Creatinine Ratio 18.9 (10-20); Bilirubin,Total 0.8 mg/dl (0.2-1.0); Creatinine Clr Calc Pharmacy 55.8 ml/min; Globulin 2.4 gm/dl (2.5-4.0); Magnesium 2.2 mg/dl (1.7-2.4); Potassium 4.1 mmol/L (3.5-5.1); Total Protein 6.3 gm/dl (6.0-8.3)
[2024-05-23 07:21] VITALS: RESP 18
[2024-05-23] MEDS: LOSARTAN POTASSIUM 50 MG TAB PO SCH (08:25)
[2024-05-23 11:15] VITALS: BP 162/94; PULSE 67; TEMP 97.5; O2SAT 97
--- NOTE | 2024-05-23 11:39 | Discharge Summary ---
Discharge Summary Date of Service May 23, 2024 Principal Dx & Hospital Course #1 = Principal Diagnosis (1) Atrial fibrillation with rapid ventricular response: 84-year-old M h/o PAF on metoprolol and Xarelto, had presented to ED from [facility] after being "unresponsive", the patient states he was just tired and sleeping. Bill Checker is Dr. Stevens, last visit 10/25/23 with [facility]Esther. - EKG: HR 127, A-fib with RVR on admission - Asymptomatic, states he goes "in and out of aFib" - 05/22: Spontaneously converted back to NSR, HR's 60s to 70s - Did have 5 rounds of NSVT late night (05/22); not symptomatic, no additional recurrences; most recent EF 65-70% (05/19/2024) - Continue Xarelto - Continue losartan - Troponin peaked at 21.2, trends decreased as expected; no chest pain, SOB, or signs of ischemia; suspect secondary to demand ischemia - Personally discussed with Dr. Stevens patient's case; Increase Metoprolol Succinate to 75 mg daily - Patient medically stable for discharge back to [facility] 05/23: Patient sitting at chair at bedside at time of visit. States that he is tired, because he did not sleep well. However, denies chest pain, shortness of breath, palpitations, lightheadedness/dizziness. Reports no new neurologic symptoms to include headache, vision changes, worsening dysarthria, weakness, loss of function, or decreased sensation. States he always goes "in and out of A-fib". Patient feels that he is ready to return to rehab continue to improve. Complete patient education of current condition and management was provided. All questions that the patient asked were answered, and the patient demonstrated complete understanding. (2) Acute CVA (cerebrovascular accident): Recent inpt stay 05/18-05/20 for acute left midbrain/cerebral peduncle stroke; residual right hemiparesis (RUE, mild RLE), dysarthria, and facial droop on R side. - CT 05/21: small low-density focus in the peripheral left mid brain/cerebral peduncle corresponds to evolving infarct, which is better seen on the prior MRI; no acute abnormalities - Neurological findings on exam today similar or improved from recent discharge exam; stable and no new deficits; no new neurological symptoms - Continue statin, Plavix, aspirin per neurology recommendations (3) BPH w urinary obs/LUTS: On finasteride at home - No LUTS or dysuria - UA: 1+ protein, 1+ ketones, less than 5 WBC, less than 2 RBC, 6-10 hyaline cast less than 2 epithelial cells Plan Dispo: Patient medically stable for discharge, discharge back to [facility] today VTE Prophylaxis: Xarelto Code: Full Notes For Next Care Provider Please follow-up with consultant intern as next surgical appointment Medication Changes From Visit Metoprolol succinate increased from 50 mg daily to 75 mg daily Continue all other home medications at prescribed doses Admission HPI Per Admitting Provider Kimberlyn Ventura is a 84 year-old male who presented to the ED from [facility] and an episode of being "unresponsive". Patient has medical history significant for paroxysmal atrial fibrillation, history of CVA with right sided deficits, BPH, HTN. Patient states that he was discharge from [facility] to [facility] on 05/20 after admission for acute left midbrain/cerebral peduncle ischemic stroke. Patient states that he had finished his first day at [facility] and completed over 3 hours of physical and occupational therapy, states he was completely exhausted and was laying in bed and fell asleep. He states that staff tried to wake him but he said since he was so tired it was difficult to wake up, outside facility reports he was "unresponsive". Patient states he feels "fine" and is "the same" as when he left [facility] the day prior, he is just tired. Patient denies chest pain or shortness of breath. ED Course: -CBC, CMP, trop -CT head -IV Lopressor 5mg x2, 500mL bolus NSS Admission Exam Per Admitting Provider Constitutional: comfortable; no acute distress Eyes:+ anicteric sclerae and PERRL; no conjunctival abnormality ENMT: Ears: no external ear abnormality Nose: no external nose abnormality Moist mucous membranes Respiratory: normal respiratory effort, lungs clear to auscultation Cardiovascular: Rate/Rhythm: + irregularly irregular No lower extremity edema Gastrointestinal (Abdomen): Abdomen soft, nontender and nondistended. Skin: no rashes, warm and dry Neurologic: Slight right sided facial droop. Facial sensation intact bilaterally. Decreased ability to shrug right shoulder. Right upper extremity strength 1/5. Left upper and lower extremity strength 5/5. Right lower extremity 3/5 hip flexion. Speech slightly slurred. Patient alert and oriented Psychiatric: A+Ox3, euthymic affect Discharge Exam General: No acute distress, well developed. Head: Normocephalic, atraumatic Eyes: PERRL; R eye with yellow crusts to lower lid, patient reports no symptoms and that it occasionally happens in the mornings. Neck: Supple, no LAD; no JVD Cardio: RRR, no G/R, S1 and S2 normal; RUSB murmur Resp: Chest wall symmetric, normal respiratory effort; No respiratory distress, Lungs CTA in all lobes bilaterally, no wheezes, rales, or rhonchi Abdomen: Soft, symmetric, nontender; No masses or hepatosplenomegaly MSK: No deformities, strength equal and symmetric, full ROM throughout; sensation normal to UE/LE. Pulses palpable and equal Neuro: Muscle strength 5/5 bilaterally in UE/LE; Sensation intact bilaterally; CN intact - Awake + alert, mild dysarthria - R sided facial droop ongoing however improving from last visit; able to puff out cheeks, weakly smile, and stick out tongue. - RUE without good movement, lower aspect with more weakness than upper but improving. - RLE with improving movement, strength greater in proximal aspect vs distal - LUE + LLE with 5/5 strength Psych: Appropriate mood and affect; good judgement and insight. Discharge Plan Discharge Items Patient Disposition: Transfer Inpatient Rehab Fac Reason For Visit: AFIB RVR Discharge Diagnosis: Afib RVR Activity: Resume your previous activity Non-emergency contact: Primary Care Provider and Bill Checker Call non-emergency contact if: you have any medication questions and your symptoms worsen Follow-up/Referrals: Fabian Sullivan MD [Primary Care Provider] - Diet: Regular Diet Texture: Easy to Chew Liquid Consistency: Blue Ball thick Addtl Attending Provider Instructions: You were diagnosed and treated for atrial fibrillation. Treatment included monitoring your heart rate throughout your stay, as well as continuation of your home medications, metoprolol, for rate control. Discussion of your case was held with your consultant intern. At discharge, please increase metoprolol to 75 mg daily (1.5 tablets) for better rate control. Please follow-up with consultant intern as scheduled. Your most recent admission was reviewed, and testing upon this hospital stay revealed stability in previous function. If you notice increased heart rate, worsening of symptoms, chest pain, or abnormal fluttering in your chest, please call your PCP for advice or return to the ED. Pending Studies at Discharge: No Stand-Alone Forms: My [facility] Skilled Items Patient informed of condition?: Yes DNR: No Discharge Level of Care: Acute rehab Communicable Disease: No Discharge Prognosis: Stable Lines: None Urinary Catheter: No Medications and DC Order Prescriptions: New metoprolol succinate 50 mg tablet extended release 24 hr 75 mg PO DAILY 30 Days Qty: 45 0RF Rx Instructions: Take 1.5 pills daily Continued Xarelto 20 mg tablet 20 mg PO DAILY Qty: 90 3RF amlodipine 5 mg tablet 5 mg PO DAILY Qty: 90 3RF finasteride 5 mg tablet 5 mg PO DAILY Qty: 90 3RF omeprazole 20 mg capsule,delayed release(DR/EC) 20 mg PO DAILY Qty: 90 3RF simvastatin 10 mg tablet 10 mg PO QPM Qty: 90 3RF calcium carbonate-vitamin D3 600 mg(1,500mg) -200 unit tablet 1 tab PO DAILY polyethylene glycol 3350 [ClearLax] 17 gram/dose powder 17 gm PO DAILY PRN (Reason: constipation) docusate sodium 100 mg tablet 100 mg PO DAILY Qty: 180 Ocuvite Adult 50 Plus 250 mg (90 mg-160 mg) Capsule 1 cap PO DAILY losartan 50 mg tablet See Rx Instructions .ROUTE .COMPLEX Rx Instructions: Take 50mg by mouth in the morning and 100mg by mouth in the evening. fluticasone propionate 50 mcg/actuation spray,suspension 1 - 2 spray intranasal DAILY Rx Instructions: USE 1 TO 2 SPRAYS IN EACH NOSTRIL ONCE DAILY acetaminophen 500 mg Tablet 500 mg PO TID PRN (Reason: Pain/Fever) Discontinued metoprolol succinate 25 mg tablet extended release 24 hr 50 mg PO DAILY Admission Data Admit Date/Time: 05/22/24 02:21 Attending Provider: Owen Bond Admit Provider: Fransisca Ashby Primary Care Provider: Fabian Sullivan Other Providers: Herbert Francois [facility] Hospital Stay Data Consultations 05/22/24 01:37 ED Decision to Admit Stat Diagnostic Imagining Performed 05/21/24 22:16 CT head/brain wo con Stat Pending Results Patient Have Any Pending Studies at Discharge: No Discharge Instructions Given to Patient (Per Discharging Provider) You were diagnosed and treated for atrial fibrillation. Treatment included monitoring your heart rate throughout your stay, as well as continuation of your home medications, metoprolol, for rate control. Discussion of your case was held with your consultant intern. At discharge, please increase metoprolol to 75 mg daily (1.5 tablets) for better rate control. Please follow-up with consultant intern as scheduled. Your most recent admission was reviewed, and testing upon this hospital stay revealed stability in previous function. If you notice increased heart rate, worsening of symptoms, chest pain, or abnormal fluttering in your chest, please call your PCP for advice or return to the ED. Total Time Total Time Spent Total Time Spent (In Minutes): 50 Total Time Includes: Examination of the Patient, Discharge Planning, Medication Reconciliation and Communication With Other Providers Coding Level of Care Code 25747 INP/OBS DISCH >30 MIN Diagnoses Atrial fibrillation with rapid ventricular response I48.91 Acute CVA (cerebrovascular accident) I63.9 BPH w urinary obs/LUTS N40.1; N13.8 Time Spent (min) 50
--- NOTE | 2024-05-24 07:44 | Electrocardiogram Report ---
Test Reason : Blood Pressure : */* mmHG Vent. Rate : 127 BPM Atrial Rate : * BPM P-R Int : * ms QRS Dur : 136 ms QT Int : 374 ms P-R-T Axes : * -54 105 degrees QTcB Int : 543 ms Atrial fibrillation with rapid ventricular response and aberrant conduction Left axis deviation Minimal voltage criteria for LVH, may be normal variant Inferior infarct , age undetermined T wave abnormality, consider lateral ischemia Abnormal ECG Confirmed by Kamar Stevens ([id number]) on 05/24/2024 7:44:20 AM Referred By: REFERRED SELF Confirmed By: Kamar Stevens
== END 2024-05-23 13:30 ==
LOC: ED 22:11 → EDINP 22:11 → SUATTDRO 05-22 02:21 → 2W 05-22 02:49

== ENCOUNTER 2025-01-30 08:55 | Inpatient (IN) ==
--- NOTE | 2025-01-30 09:21 | Emergency Department Note ---
Impression & Plan Lower abdominal pain, Bowel perforation, Diverticulitis, Leukocytosis ED Provider Note NAME: KIM CARSON AGE: 84 SEX: M : 1940 ARRIVES VIA: Ambulance INFORMANT: [Patient] ED PROVIDER(S): [Davis Ruiz MD] CHIEF COMPLAINT: Urinary symptoms HISTORY OF PRESENT ILLNESS: The patient is an 84-year-old male who has had difficulty with urination for around 16 to 17 hours. He has had some frequency and urgency and some burning with urination. He has noticed some pain in the area of the bladder. No flank pain. No fever, no cough or congestion. 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 The patient has had 1 previous UTI. PMHx/PSHx/Social Hx: See Below PHYSICAL EXAM: GENERAL: Patient is in no acute distress. HEENT: No acute trauma, normocephalic atraumatic, mucous membranes moist, no nasal congestion. NECK: No stridor, no adenopathy, no meningismus, trachea is midline. LUNGS: Clear to auscultation bilaterally, no wheeze, no rhonchi, breath sounds equal. HEART: Subtle systolic murmur, regular rate and rhythm. ABDOMEN: Soft, seems mildly tender over the mid pelvis/bladder, no bladder distention noted. EXTREMITIES: No cyanosis, full range of motion of all the joints without pain or difficulty. NEUROLOGIC: Awake and alert. He does have some right upper extremity weakness from the previous CVA. SKIN: No jaundice, no diaphoresis. Groin: No groin erythema seen. DIFFERENTIAL DIAGNOSIS: UTI, urinary retention, hydronephrosis, pyelonephritis, renal failure, among others. EMERGENCY DEPARTMENT PROCEDURES: MEDICAL DECISION MAKING: There is a moderate leukocytosis, this would be consistent with infection. There is a normal hemoglobin and platelet count. No bandemia. No renal failure or significant electrolyte abnormality. Lactic acid level is not elevated making severe sepsis less likely. There is no concerning liver enzyme elevation. No evidence for pancreatitis. Urinalysis showed some dehydration, no obvious infection. Abdominal and pelvis CT shows diverticulitis with a contained perforation. No drainable abscess. On exam, the patient was tender in the area of the mid lower abdomen/pelvis. He was not febrile, he was not toxic. The patient was given IV saline for hydration, he was given IV Zosyn as antibiotic coverage. The patient presents with lower abdominal pain. He was found to have a contained bowel perforation from diverticulitis. Hospitalization is indicated. I did speak with general surgery, I did speak with case management. I talked to the patient about his findings. The on-call hospitalist was consulted. Prior/Outside records/notes reviewed: None Imaging/x-ray results per my interpretation: Chronic Medical/Social conditions affecting care: Advanced age, history of CVA. Care/Management discussed with: General Surgery-Dr. Mariangel Atkins's service. Case management and the on-call hospitalist. Level of care consideration(s): After review of the information above and other included data: --I believe the patient requires escalation of care to admission DISPOSITION: Admission Past Med/Surg History Problem List (Updated 01/30/25 @ 14:22 by Davis Ruiz MD) Leukocytosis (Acute) Diverticulitis (Acute) Bowel perforation (Acute) Lower abdominal pain (Acute) Atrial fibrillation Perforated diverticulum Hemiparesis affecting right side as late effect of cerebrovascular accident Renal cyst (Chronic) Atrial fibrillation with rapid ventricular response (Acute) Acute alteration in mental status (Acute) BPH w urinary obs/LUTS (Chronic) Current use of terminologist anticoagulation (Acute) Weakness (Acute) Tendonitis of upper biceps tendon of right shoulder Right rotator cuff tendonitis 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 Paroxysmal atrial fibrillation Right shoulder pain Chronic SI joint pain Elevated TSH Hyponatremia Current use of proton pump inhibitor Vitamin D deficiency (Acute) Mild mitral regurgitation (Acute) Hypercholesterolemia (Acute) Essential hypertension (Acute) Nonerosive esophageal reflux disease (Acute) Enlarged prostate with lower urinary tract symptoms (LUTS) (Acute) Atrial fibrillation with normal ventricular rate (Acute) Sensorineural hearing loss of left ear (Acute) Hyperglycemia Anxiety Medical History Acute right hemiparesis Exposure to COVID-19 virus Acute CVA (cerebrovascular accident) Stroke-like symptoms Surgical History History of cardiac radiofrequency ablation Family History Father Cerebral atherosclerosis Coronary atherosclerosis Brother Lung cancer Mother No problems noted. Denies family history of Ovarian cancer Prostate cancer Myocardial infarction Breast cancer Colon cancer high risk Social History Smoking Status: Never smoker Second Hand Exposure: No; Do You Dip or Chew Tobacco: No; Hx Alcohol Use: No Hx Substance Use: No Preferred Language: Georgian Communication Ability: Effective Visual Impairment: No Limitations Hearing Ability: Use of Hearing Aid Life Science Teacher Required: No Beliefs That Will Affect Care: None marital status: Current Living Situation: Alone Current Living Situation Comment: [facility] current occupational status: retired current occupation: Retired, 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60, 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 Feels Safe at Home: Yes Safety Concerns: Feels Safe At This Time Childhood Exposure to Second-Hand Smoke: No Dental Care, Regularly: Yes Physical Activity Frequency: 3-4 Times per Week Seatbelt Use: always Sunscreen Use: Yes Assistive Devices: Glasses, Walker and Wheelchair Allergies Allergies Allergy/AdvReac Type Severity Reaction Status Date / Time iodine Allergy Mild Rash Verified 11/13/24 10:35 Home Meds Home Medications Medication Instructions Recorded Confirmed calcium 600 mg (as 1 tab PO DAILY 02/26/19 01/30/25 carbonate)-vitamin D3 5 mcg (200 unit) tablet polyethylene glycol 3350 17 17 gm PO DAILY PRN constipation 03/04/19 01/30/25 gram/dose oral powder (ClearLax) docusate sodium 100 mg tablet 100 mg PO DAILY #180 tabs 12/15/21 01/30/25 acetaminophen 500 mg tablet 500 mg PO TID PRN Pain/Fever 05/18/24 01/30/25 melatonin 10 mg capsule 10 mg PO HS PRN Sleep 08/15/24 01/30/25 [id number] 200 mcg-vit K 15 2 tab PO DAILY 08/15/24 01/30/25 mcg-lycope 150 [id number] tablet (Ocuvite Eye Plus Multi) losartan 25 mg tablet 75 mg PO UD 01/30/25 01/30/25 tamsulosin 0.4 mg capsule 0 mg PO DAILY 01/30/25 01/30/25 Previous Rx's Medication Instructions Recorded omeprazole 20 mg capsule,delayed 20 mg PO DAILY #90 caps 03/03/24 release simvastatin 10 mg tablet 10 mg PO QPM #90 tabs 05/01/24 amlodipine 5 mg tablet 5 mg PO DAILY #90 tabs 07/10/24 fluticasone propionate 50 1 - 2 spray intranasal DAILY #16 11/13/24 mcg/actuation nasal grams spray,suspension apixaban 5 mg tablet 5 mg PO BID #180 tabs 11/27/24 finasteride 5 mg tablet 5 mg PO DAILY #90 tabs 01/23/25 metoprolol tartrate 25 mg tablet 50 mg (2 x 25 mg) PO BID 2 weeks 01/23/25 #56 tabs Results & Data (ED) Vital Signs Vital Signs - 24 hr 01/30/25 09:13 01/30/25 09:13 01/30/25 10:42 Temperature 36.9 C Temperature Source Oral Pulse Rate 70 Pulse Rate [Apical] 74 68 Respiratory Rate 20 20 20 Respiratory Effort / Characteristics Non-Labored Non-Labored Non-Labored Respiratory Depth Normal Normal Normal Blood Pressure 130/74 Blood Pressure [Right Arm] 133/76 Blood Pressure Mean 92 Blood Pressure Mean [Right Arm] 95 Pulse Oximetry 97 97 96 Oxygen Delivery Method Room Air Room Air Room Air Sepsis Recent Fever Within 48 Hours No Sepsis New/Unexplained Change in Mental Status No Sepsis Action Taken by Nursing No Action Required 01/30/25 11:05 01/30/25 11:59 Temperature 36.6 C Temperature Source Oral Pulse Rate Pulse Rate [Apical] 67 67 Respiratory Rate 20 20 Respiratory Effort / Characteristics Non-Labored Non-Labored Respiratory Depth Normal Normal Blood Pressure Blood Pressure [Right Arm] 133/76 124/70 Blood Pressure Mean Blood Pressure Mean [Right Arm] 95 88 Pulse Oximetry 99 97 Oxygen Delivery Method Room Air Room Air Sepsis Recent Fever Within 48 Hours Sepsis New/Unexplained Change in Mental Status Sepsis Action Taken by [facility] Medications Current Medication List: was personally reviewed by me Laboratory Data Attestation: I reviewed the patient's lab results. 01/30/25 09:20 01/30/25 09:20 Lab Results 01/30/25 01/30/25 Range/Units 09:03 09:20 WBC 15.59 H (4.8-10.8) K/ul RBC 5.44 (4.70-6.10) M/uL Hgb 16.3 (14.0-18.0) g/dl Hct 48.8 (42.0-52.0) % MCV 89.7 (80.0-100.0) fL MCH 30.0 (25.0-34.0) pg MCHC 33.4 (32.0-36.0) g/dL RDW Std Deviation 42.5 (36.4-46.3) fL RDW Coeff of Gypsy 13.1 (11.5-14.5) % Plt Count 234 (130-400) K/uL MPV 10.2 (9.4-12.4) fL Immature Gran % (Auto) 0.3 % Neut % (Auto) 84.4 % Lymph % (Auto) 6.0 % Nash % (Auto) 9.0 % Eos % (Auto) 0.0 % Baso % (Auto) 0.3 % Neut # (Auto) 13.17 H (1.40-6.50) K/uL Lymph # (Auto) 0.93 L (1.20-3.40) K/uL Nash # (Auto) 1.40 H (0.11-0.59) K/uL Eos # (Auto) 0.00 (0.00-0.50) K/uL Baso # (Auto) 0.04 (0.00-0.20) K/uL Immature Gran # (Auto) 0.05 (0.01-0.20) K/uL Sodium 134 L (136-145) mmol/L Potassium 3.9 (3.5-5.1) mmol/L Chloride 99 (98-107) mmol/L Carbon Dioxide 25 (21-32) mmol/L Anion Gap 10 (3-11) BUN 21 (6-23) mg/dl Creatinine 1.11 (0.6-1.4) mg/dl Est Cr Clr Drug Dosing 47.8 ml/min eGFR 64.67 BUN/Creatinine Ratio 18.9 (10-20) Glucose 121 H (70-99(Fasting)) mg/dl Calcium 9.1 (8.6-10.3) mg/dl Total Bilirubin 0.8 (0.2-1.0) mg/dl AST 17 (13-39) U/L ALT 11 (7-52) U/L Alkaline Phosphatase 46 (34-104) U/L Total Protein 7.0 (6.0-8.3) gm/dl Albumin 3.9 (3.4-5.0) gm/dl Globulin 3.1 (2.5-4.0) gm/dl Albumin/Globulin Ratio 1.3 (0.9-2) Lipase 19 (11-82) U/L Urine Color Dark Yellow Urine Appearance Clear (Clear) Urine pH 5.0 (4.5-7.5) Ur Specific [place] 1.027 (1.000-1.030) Urine Protein 1+ H (Negative) Urine Glucose (UA) Negative (Negative) Urine Ketones 1+ H (Negative) Urine Blood Negative (Negative) Urine Nitrite Negative (Negative) Urine Bilirubin 1+ H (Negative) Urine Urobilinogen Negative (Negative) Ur Leukocyte Esterase Trace H (Negative) Urine WBC (Auto) 0-5 (0-5) /hpf Urine RBC (Auto) 0-2 (0-2) /hpf U Hyaline Cast (Auto) 0-2 (0-2) /lpf U Epithel Cells (Auto) 0-2 (0-2) /hpf Urine Bacteria (Auto) None Seen (None Seen) Urine Comment Administered Medications Discontinued Medications Sodium Chloride (Nss) 500 mls @ 999 mls/hr IV .Q31M STA Stop: 01/30/25 09:40 Last Infusion: 01/30/25 10:04 Dose: Infused Documented By: Admin: 01/30/25 09:23 Dose: 999 mls/hr Documented By: JEFF Piperacillin Sod/Tazobactam Sod (Zosyn) 4.5 gm in 100 mls @ 200 mls/hr IV NOW ONE Stop: 01/30/25 11:03 Last Infusion: 01/30/25 11:05 Dose: Infused Documented By: Admin: 01/30/25 10:42 Dose: 200 mls/hr Documented By: YASMINE Imaging Data Radiologist's Impression: Abdomen/Pelvis CT 01/30/25 09:11 HISTORY: Possible small bowel obstruction. UTI symptoms. TECHNIQUE: Helical CT imaging of the abdomen and pelvis was performed without contrast. Images are presented in axial, sagittal, and coronal reformats. COMPARISON: None. FINDINGS: Lung Bases/Inferior Mediastinum: 0.5 cm nodule in the right middle lobe. Juxtapleural 0.5 cm nodule in the right middle lobe on series 2 image 9. Atelectasis at the lung bases.Coronary artery calcifications are present. Aortic valvular calcification. Liver: Unremarkable Gallbladder: Unremarkable Spleen: Unremarkable Adrenals: Unremarkable Pancreas: Unremarkable Kidneys: Symmetric bilateral perinephric stranding may be due to nephrolithiasis or could be physiologic. 2 cm cortical cyst along the medial cortex of the mid right kidney.No nephrolithiasis or hydronephrosis. No hydroureter. Stomach/Bowel: The distal esophagus and stomach appear unremarkable. Small bowel loops are normal in caliber. Appendix is not identified. Sigmoid colon irregular wall thickening with significant surrounding inflammation and evidence of perforation (series 3 image 268). Significant inflammation and locules of gas in the adjacent mesentery without well-developed drainable fluid collection. Lymph nodes: Unremarkable Vasculature: Moderate atherosclerotic vascular disease. No abdominal aortic aneurysm. Pelvis: Circumferential bladder wall thickening with associated inflammation. This may be reactive due to adjacent sigmoid colon inflammation or could be secondary to acute cystitis. Prostate and seminal vesicles are unremarkable. Soft Tissues: Unremarkable Bones: Degenerative changes of the hips and pelvis. Degenerative changes of the spine.L03 severe compression deformity appears chronic with greater than 50% height loss. Multilevel central canal and neural foraminal stenosis. IMPRESSION: * Irregular sigmoid colon wall thickening with significant surrounding inflammation and locules of extraluminal gas in the adjacent mesentery consistent with perforation. Given numerous diverticula in the area, this is favored to represent perforated acute diverticulitis. Differential also includes perforated colon malignancy. There is significant inflammation and locules of extraluminal gas in the adjacent mesentery without well-developed drainable fluid collection or abscess. * Circumferential bladder wall thickening with mild surrounding inflammation. This could be reactive to adjacent sigmoid colon inflammatory process or secondary to acute cystitis. Recommend correlation with urinalysis. * 0.5 cm right middle lobe pulmonary nodules. No routine follow-up is necessary based on Fleischner Society criteria. If the patient is considered high risk for lung malignancy (i.e. history of smoking or malignancy), then follow-up chest CT is recommended in 12 months. * Additional chronic and/or incidental findings as detailed above. Findings discussed with ordering provider Dr. Davis Ruiz at 10:25 AM on 01/30/2025. ACT 112: Positive. There are findings on this exam that require communication between the performing entity and the patient following Patient Test Result Information Act ([place] ACT 112) guidelines. Electronically signed by Freddy Álvarez 01-30-2025 10:27 AM Discharge Plan Visit Data Chief Complaint: Urinary Symptoms Stated Complaint: AB & PELVIC PAIN WHEN URINATES ED Provider: Davis Ruiz Discharge Problem: Lower abdominal pain, Bowel perforation, Diverticulitis, Leukocytosis Patient Disposition: Admitted As Inpatient Condition: Fair Discharge Instructions Interventions: ED Discharge Assessment Last Done: 01/30/25 12:46 Discharge Problem: Leukocytosis Qualifiers: Leukocytosis type: unspecified Qualified Code(s): D72.829 - Elevated white blood cell count, unspecified
[2025-01-30] MEDS: SODIUM CHLORIDE 0.9% 500 ML IV STA (09:23)
[2025-01-30 09:37] LABS: Appearance Urine Clear (Clear); Bacteria Urine Automated None Seen (None Seen); Cast Urine Automated 0-2 /lpf (0-2); Epithelial Cell Urine Auto 0-2 /hpf (0-2); Glucose Urine UA Negative (Negative); RBC Urine Automated 0-2 /hpf (0-2); WBC Urine Automated 0-5 /hpf (0-5)
[2025-01-30 09:41] LABS: Hematocrit (blood only) 48.8 % (42.0-52.0); Hemoglobin 16.3 g/dl (14.0-18.0); Immature Granulocytes # (auto) 0.05 K/uL (0.01-0.20); Immature Granulocytes % (auto) 0.3 %; Mean Corpuscular Hemoglobin 30.0 pg (25.0-34.0); Mean Corpuscular Volume 89.7 fL (80.0-100.0); Platelet Count 234 K/uL (130-400); RDW Standard Deviation 42.5 fL (36.4-46.3); Red Blood Count 5.44 M/uL (4.70-6.10); White Blood Count 15.59 K/ul (4.8-10.8)
[2025-01-30 09:59] LABS: Alanine Aminotransferase 11.0 U/L (7-52); Albumin Globulin Ratio 1.3 (0.9-2); Alkaline Phosphatase 46.0 U/L (34-104); Anion Gap 10.0 (3-11); Bilirubin,Total 0.8 mg/dl (0.2-1.0); Blood Urea Nitrogen 21.0 mg/dl (6-23); Calcium 9.1 mg/dl (8.6-10.3); Carbon Dioxide 25.0 mmol/L (21-32); Chloride 99.0 mmol/L (98-107); Creatinine Clr Calc Pharmacy 47.8 ml/min; Globulin 3.1 gm/dl (2.5-4.0); Glucose 121.0 mg/dl (70-99(Fasting)); Lipase 19.0 U/L (11-82); Potassium 3.9 mmol/L (3.5-5.1); Sodium 134.0 mmol/L (136-145); Total Protein 7.0 gm/dl (6.0-8.3)
--- NOTE | 2025-01-30 10:27 | CT Scan Report ---
HISTORY: Possible small bowel obstruction. UTI symptoms. TECHNIQUE: Helical CT imaging of the abdomen and pelvis was performed without contrast. Images are presented in axial, sagittal, and coronal reformats. COMPARISON: None. FINDINGS: Lung Bases/Inferior Mediastinum: 0.5 cm nodule in the right middle lobe. Juxtapleural 0.5 cm nodule in the right middle lobe on series 2 image 9. Atelectasis at the lung bases.Coronary artery calcifications are present. Aortic valvular calcification. Liver: Unremarkable Gallbladder: Unremarkable Spleen: Unremarkable Adrenals: Unremarkable Pancreas: Unremarkable Kidneys: Symmetric bilateral perinephric stranding may be due to nephrolithiasis or could be physiologic. 2 cm cortical cyst along the medial cortex of the mid right kidney.No nephrolithiasis or hydronephrosis. No hydroureter. Stomach/Bowel: The distal esophagus and stomach appear unremarkable. Small bowel loops are normal in caliber. Appendix is not identified. Sigmoid colon irregular wall thickening with significant surrounding inflammation and evidence of perforation (series 3 image 268). Significant inflammation and locules of gas in the adjacent mesentery without well-developed drainable fluid collection. Lymph nodes: Unremarkable Vasculature: Moderate atherosclerotic vascular disease. No abdominal aortic aneurysm. Pelvis: Circumferential bladder wall thickening with associated inflammation. This may be reactive due to adjacent sigmoid colon inflammation or could be secondary to acute cystitis. Prostate and seminal vesicles are unremarkable. Soft Tissues: Unremarkable Bones: Degenerative changes of the hips and pelvis. Degenerative changes of the spine.L03 severe compression deformity appears chronic with greater than 50% height loss. Multilevel central canal and neural foraminal stenosis. IMPRESSION: * Irregular sigmoid colon wall thickening with significant surrounding inflammation and locules of extraluminal gas in the adjacent mesentery consistent with perforation. Given numerous diverticula in the area, this is favored to represent perforated acute diverticulitis. Differential also includes perforated colon malignancy. There is significant inflammation and locules of extraluminal gas in the adjacent mesentery without well-developed drainable fluid collection or abscess. * Circumferential bladder wall thickening with mild surrounding inflammation. This could be reactive to adjacent sigmoid colon inflammatory process or secondary to acute cystitis. Recommend correlation with urinalysis. * 0.5 cm right middle lobe pulmonary nodules. No routine follow-up is necessary based on Fleischner Society criteria. If the patient is considered high risk for lung malignancy (i.e. history of smoking or malignancy), then follow-up chest CT is recommended in 12 months. * Additional chronic and/or incidental findings as detailed above. Findings discussed with ordering provider Dr. Davis Ruiz at 10:25 AM on 01/30/2025. ACT 112: Positive. There are findings on this exam that require communication between the performing entity and the patient following Patient Test Result Information Act ([place] ACT 112) guidelines. Electronically signed by Freddy Álvarez 01-30-2025 10:27 AM
[2025-01-30] MEDS: PIPERACILLIN/TAZOBACTAM 4.5 GM/100 ML BAG IV ONE (10:42)
--- NOTE | 2025-01-30 11:23 | History & Physical Report ---
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 Inital evaluation with WBC 15.[address] A/P with irregular sigmoid colon wall thickening with significant surrounding inflammation with extraluminal gas consistent with perforation, without signs of abscess - favors diverticulitis but differential includes perforated colon malignancy. Admitted for IV antibio tics and general surgery evaluation. #Suspected Diverticular Perforation without Abscess UA without concerns for infection. Lipase negative. Lactate added General Surgery consulted Keep NPO , bowel rest, start maintenance IV fluids Continue Zosyn IV acetaminophen for mild to moderate pain, morphine for moderate to severe pain Hold Eliquis - transition to heparin drip this evening (after Eliquis washout) in case need of procedure AM CBC and BMP #Afib | HTN Eliquis held as above hold amlodipine, losartan, metoprolol with strict NPO Scheduled IV lopressor 5mg BID - can increase if flips into afib Hydralazine PRN HTN #Hx of CVA resume statin when no longer NPO I do not see an antiplatelet on his med list - note review suggest he should be on ASA, unable to find hx of GI bleed. 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 Pain started at 4Pm 01/29. No diet changes, had a piece of pie for lunch that day. No changes in bowel habits - takes miralax every other day. Thought he had a urinary tract infection because he normally gets up ~ 10 times per night and was up 10-15 times last night. Thinks he had chills around 8pm but did not take his temperature. Took all of his medicaitons this morning, but not last night. Normal state of health yesterday morning. Still with residual effects from stroke - use a walker and wheelchair at baseline. He wishes to be a full code ED course: Zosyn x1 NSS 500cc Allergies Allergy/AdvReac Type Severity Reaction Status Date / Time iodine Allergy Mild Rash Verified 11/13/24 10:35 Home Medications Medication Instructions Recorded Confirmed Type calcium 600 mg (as 1 tab PO DAILY 02/26/19 01/30/25 History carbonate)-vitamin D3 5 mcg (200 unit) tablet polyethylene glycol 3350 17 17 gm PO DAILY PRN constipation 03/04/19 01/30/25 History gram/dose oral powder (ClearLax) docusate sodium 100 mg tablet 100 mg PO DAILY #180 tabs 12/15/21 01/30/25 History omeprazole 20 mg capsule,delayed 20 mg PO DAILY #90 caps 03/03/24 01/30/25 Rx release simvastatin 10 mg tablet 10 mg PO QPM #90 tabs 05/01/24 01/30/25 Rx acetaminophen 500 mg tablet 500 mg PO TID PRN Pain/Fever 05/18/24 01/30/25 History amlodipine 5 mg tablet 5 mg PO DAILY #90 tabs 07/10/24 01/30/25 Rx melatonin 10 mg capsule 10 mg PO HS PRN Sleep 08/15/24 01/30/25 History qtepwepc-bab-CR 200 mcg-vit K 15 2 tab PO DAILY 08/15/24 01/30/25 History mcg-lycope 150 msh-imexal-lhky tablet (Ocuvite Eye Plus Multi) fluticasone propionate 50 1 - 2 spray intranasal DAILY #16 11/13/24 01/30/25 Rx mcg/actuation nasal grams spray,suspension apixaban 5 mg tablet 5 mg PO BID #180 tabs 11/27/24 01/30/25 Rx finasteride 5 mg tablet 5 mg PO DAILY #90 tabs 01/23/25 01/30/25 Rx metoprolol tartrate 25 mg tablet 50 mg (2 x 25 mg) PO BID 2 weeks 01/23/25 01/30/25 Rx #56 tabs losartan 25 mg tablet 75 mg PO UD 01/30/25 01/30/25 History tamsulosin 0.4 mg capsule 0 mg PO DAILY 01/30/25 01/30/25 History Past Med/Surg History Problem List (Updated 01/30/25 @ 14:22 by Davis Ruiz MD) Leukocytosis (Acute) Diverticulitis (Acute) Bowel perforation (Acute) Lower abdominal pain (Acute) Atrial fibrillation Perforated diverticulum Hemiparesis affecting right side as late effect of cerebrovascular accident Renal cyst (Chronic) Atrial fibrillation with rapid ventricular response (Acute) Acute alteration in mental status (Acute) BPH w urinary obs/LUTS (Chronic) Current use of exterminator anticoagulation (Acute) Weakness (Acute) Tendonitis of upper biceps tendon of right shoulder Right rotator cuff tendonitis 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 Paroxysmal atrial fibrillation Right shoulder pain Chronic SI joint pain Elevated TSH Hyponatremia Current use of proton pump inhibitor Vitamin D deficiency (Acute) Mild mitral regurgitation (Acute) Hypercholesterolemia (Acute) Essential hypertension (Acute) Nonerosive esophageal reflux disease (Acute) Enlarged prostate with lower urinary tract symptoms (LUTS) (Acute) Atrial fibrillation with normal ventricular rate (Acute) Sensorineural hearing loss of left ear (Acute) Hyperglycemia Anxiety Medical History Acute right hemiparesis Exposure to COVID-19 virus Acute CVA (cerebrovascular accident) Stroke-like symptoms Surgical History History of cardiac radiofrequency ablation Family History Father Cerebral atherosclerosis Coronary atherosclerosis Brother Lung cancer Mother No problems noted. Denies family history of Ovarian cancer Prostate cancer Myocardial infarction Breast cancer Colon cancer high risk Social History Smoking Status: Never smoker Second Hand Exposure: No; Do You Dip or Chew Tobacco: No; Hx Alcohol Use: No Hx Substance Use: No Preferred Language: Bur[place]ian Communication Ability: Effective Visual Impairment: No Limitations Hearing Ability: Use of Hearing Aid Cone Examiner Required: No Beliefs That Will Affect Care: None marital status: Current Living Situation: Alone Current Living Situation Comment: [facility] current occupational status: retired current occupation: Retired, 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60, 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 Feels Safe at Home: Yes Safety Concerns: Feels Safe At This Time Childhood Exposure to Second-Hand Smoke: No Dental Care, Regularly: Yes Physical Activity Frequency: 3-4 Times per Week Seatbelt Use: always Sunscreen Use: Yes Assistive Devices: Glasses, Walker and Wheelchair Review of Systems Review of Systems: All systems reviewed & are unremarkable except as noted in Subjective Physical Exam Physical Exam: General: NAD, VS as above Resp: normal respiratory effort, lungs clear to auscultation CV: RRR, no murmur, Abd: normal bowel sounds, soft, generalized tenderness worse over RLQ and suprapubic area with mild involuntary guarding Extremities: Moves all extremities, no edema. Residual right sided deficts. brace on left wrist Neuro: A&O x3, Skin: intact, no lesions noted Results & Data Results & Data Vital Signs (Past 12 Hours) Vital Signs Temp Pulse Pulse Resp BP BP Pulse Ox 01/30/25 11:05 97.9 F 67 20 133/76 99 01/30/25 10:42 68 20 133/76 96 01/30/25 09:13 74 20 97 01/30/25 09:13 98.4 F 70 20 130/74 97 O2 Del Method 01/30/25 11:05 Room Air 01/30/25 10:42 Room Air 01/30/25 09:13 Room Air 01/30/25 09:13 Room Air Laboratory Results cbc and chemistry reviewed UA reviewed LFTs reviewed Diagnostic Findings CT a/p reviewed Supervising Physician Co-Signing Physician Notes PA Supervision Note: I personally saw and examined the patient. I verified all gamboa points and agree with QUYNH Vasquez with the following exceptions and/or additions: S-patient presents with lower abdominal pain and fever x 1 day. No blood in the stool. Found to have leukocytosis and perforated sigmoid diverticulitis which is contained on CT abdomen/pelvis History and ROS otherwise reviewed as above O- Vitals reviewed Gen: [AAOx3, NAD] HEENT: [anicteric sclerae, EOMI] CV: [RRR no mgr nl S1S2] Pulm: [CTAB no wcr] Abd: [+BS soft positive tenderness to palpation in lower mid to left abdomen without guarding or rebound] Ext: [no edema] Skin: [no rashes, warm/dry] Neuro: [Right sided hemiparesis] CBC, BMP, lactate, CT abdomen/pelvis reviewed A/F-33-qvuy-old male here with perforated sigmoid diverticulitis-seems to be contained. With leukocytosis but no other signs of sepsis here - Continue with n.p.o. status, maintenance IV fluids, IV Zosyn, appreciate surgery consultation - Hold Eliquis and give heparin drip in case of need for surgery - Monitor blood pressure closely in the setting of history of brainstem stroke- should definitely be on aspirin once able to take p.o. and no surgery needed- aspirin was recommended on discharge from the hospital when he had his stroke and the discharge instructions, however it was never prescribed on the medication list and he reports he has not been taking it and did not know he was supposed to be taking it-recommend starting it this admission PG Care Time/CCT Total # of Minutes Spent Total Time Spent with Patient: Total time spent is greater than 50% in coordination of care (as documented) at patient's floor/unit and/or counseling patient: Coding Level of Care Code 69493 INT INP/OBS CARE 3/75MIN Diagnoses Perforated diverticulum K57.80 Atrial fibrillation I48.91 Hemiparesis affecting right side as late effect of cerebrovascular accident I69.351 BPH w urinary obs/LUTS N40.1; N13.8"
[2025-01-30] MEDS ORDERED: ONDANSETRON INJ 2 MG/ML 2 ML VIAL IV PRN (13:10)
--- NOTE | 2025-01-30 13:45 | Surgery Consultation ---
Date of Consultation January 30, 2025 Assessment & Plan (1) Perforated diverticulum: 84-year-old male PMHx of afib and ablation on Eliquis, presented to the emergency department with a complaint of abdominal pain, CT evidence for perforated, acute diverticulitis. Conservative management initiated and no need for acute surgical intervention at this time. strict NPO at this time Continue IV abx IVF with D5 and KCL Hold Eliquis for now Pain control Antiemetic as needed Ambulate with assistance as tolerated History of Present Illness Reason for Consultation: Diverticulitis Attending Physician: Nicolette Leung MD History of Present Illness 84-year-old male PMHx of afib and ablation on Eliquis, presented to the emergency department with a complaint of abdominal pain, CT evidence for acute diverticulitis. He has been admitted to the medical service and a surgical consultation has been requested. Mr. Ventura appears quite comfortable on the floor and explains that he began having low abdominal pain yesterday. He initially thought he was experiencing a UTI until he experienced severe abdominal pain at 4pm and then the feeling of fevers by 8pm. This all prompted him to come to the ED. He says he does not have pain unless he moves. He denies any other associated symptoms denying burning with urination, chest pains, heart palpitations, SOB, or N/V. He says he has never had diverticulitis in the past but had hears he had diverticulosis when he was younger. He says he has had many colonoscopies in the past and his last one was roughly 10 years ago (in his 70's). In the ED he was afebrile, with WBC to 15.5, no significant electrolyte derangements. CT A/P revealing significant stool burden in the colon and sigmoid diverticulitis with perforation appreciated by air and a small amount of fluid in the mesenteric tissues adjacent to the colon. Allergies Allergy/AdvReac Type Severity Reaction Status Date / Time iodine Allergy Mild Rash Verified 11/13/24 10:35 Home Medications Medication Instructions Recorded Confirmed Type calcium 600 mg (as 1 tab PO DAILY 02/26/19 01/30/25 History carbonate)-vitamin D3 5 mcg (200 unit) tablet polyethylene glycol 3350 17 17 gm PO DAILY PRN constipation 03/04/19 01/30/25 History gram/dose oral powder (ClearLax) docusate sodium 100 mg tablet 100 mg PO DAILY #180 tabs 12/15/21 01/30/25 History omeprazole 20 mg capsule,delayed 20 mg PO DAILY #90 caps 03/03/24 01/30/25 Rx release simvastatin 10 mg tablet 10 mg PO QPM #90 tabs 05/01/24 01/30/25 Rx acetaminophen 500 mg tablet 500 mg PO TID PRN Pain/Fever 05/18/24 01/30/25 History amlodipine 5 mg tablet 5 mg PO DAILY #90 tabs 07/10/24 01/30/25 Rx melatonin 10 mg capsule 10 mg PO HS PRN Sleep 08/15/24 01/30/25 History lmpsbtiq-ibt-LO 200 mcg-vit K 15 2 tab PO DAILY 08/15/24 01/30/25 History mcg-lycope 150 tzg-ewbbuf-ffwt tablet (Ocuvite Eye Plus Multi) fluticasone propionate 50 1 - 2 spray intranasal DAILY #16 11/13/24 01/30/25 Rx mcg/actuation nasal grams spray,suspension apixaban 5 mg tablet 5 mg PO BID #180 tabs 11/27/24 01/30/25 Rx finasteride 5 mg tablet 5 mg PO DAILY #90 tabs 01/23/25 01/30/25 Rx metoprolol tartrate 25 mg tablet 50 mg (2 x 25 mg) PO BID 2 weeks 01/23/25 01/30/25 Rx #56 tabs losartan 25 mg tablet 75 mg PO UD 01/30/25 01/30/25 History tamsulosin 0.4 mg capsule 0 mg PO DAILY 01/30/25 01/30/25 History Patient History Medical History (Updated 01/30/25 @ 12:33 by Milvia Vasquez PA-C) Acute right hemiparesis Exposure to COVID-19 virus Acute CVA (cerebrovascular accident) Stroke-like symptoms Surgical History History of cardiac radiofrequency ablation Family History Father Cerebral atherosclerosis Coronary atherosclerosis Brother Lung cancer Mother No problems noted. Denies family history of Ovarian cancer Prostate cancer Myocardial infarction Breast cancer Colon cancer high risk Social History Smoking Status: Never smoker Second Hand Exposure: No; Do You Dip or Chew Tobacco: No; Hx Alcohol Use: No Hx Substance Use: No Preferred Language: [place] Communication Ability: Effective Visual Impairment: No Limitations Hearing Ability: Use of Hearing Aid Consumer Loan Processor Required: No Beliefs That Will Affect Care: None marital status: Current Living Situation: Rehab Current Living Situation Comment: [facility] current occupational status: retired current occupation: Retired, 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60, 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 Feels Safe at Home: Yes Childhood Exposure to Second-Hand Smoke: No Dental Care, Regularly: Yes Physical Activity Frequency: 3-4 Times per Week Seatbelt Use: always Sunscreen Use: Yes Assistive Devices: None Review of Systems Review of Systems: All systems reviewed & are unremarkable except as noted in HPI & below Physical Exam Constitutional: average body habitus; not ill appearing, not in distress and not diaphoretic Respiratory: normal respiratory effort; no respiratory distress, no labored breathing and does not use accessory muscles Cardiovascular: Rate/Rhythm: regular rate; not tachycardic Extremities: no edema Gastrointestinal (Abdomen): Inspection/Auscultation: abdomen normal to inspection and + abdomen distended (mildly ) Percussion/Palpation: + abdomen tender (minimal lower quadrants) and abdomen soft; no guarding Psychiatric: Orientation: alert and oriented x 3 Judgment: good judgement Results & Data Vital Signs (Past 12 Hours) Vital Signs Temp Pulse Pulse Resp BP BP Pulse Ox 01/30/25 13:10 36.5 C 75 20 159/77 H 98 01/30/25 12:46 01/30/25 11:59 67 20 124/70 97 01/30/25 11:05 36.6 C 67 20 133/76 99 01/30/25 10:42 68 20 133/76 96 01/30/25 09:13 74 20 97 01/30/25 09:13 36.9 C 70 20 130/74 97 O2 Del Method 01/30/25 13:10 Room Air 01/30/25 12:46 Room Air 01/30/25 11:59 Room Air 01/30/25 11:05 Room Air 01/30/25 10:42 Room Air 01/30/25 09:13 Room Air 01/30/25 09:13 Room Air PG Care Time/CCT Total # of Minutes Spent Total Time Spent with Patient: Total time spent is greater than 50% in coordination of care (as documented) at patient's floor/unit and/or counseling patient: Coding Level of Care Code 42145 INT INP/OBS CARE MIN Diagnoses Perforated diverticulum K57.80
[2025-01-30] MEDS: D5NSS + 20MEQ KCL 20 MEQ/1,000 ML BAG IV SCH (16:23)
[2025-01-30] MEDS: PIPERACILLIN/TAZOBACTAM 4.5 GM/100 ML BAG IV SCH (18:09)
[2025-01-30 18:58] LABS: Hematocrit (blood only) 46.4 % (42.0-52.0); Hemoglobin 15.7 g/dl (14.0-18.0); Immature Granulocytes # (auto) 0.05 K/uL (0.01-0.20); Immature Granulocytes % (auto) 0.4 %; Mean Corpuscular Hemoglobin 29.8 pg (25.0-34.0); Mean Corpuscular Volume 88.2 fL (80.0-100.0); Platelet Count 223 K/uL (130-400); RDW Standard Deviation 42.4 fL (36.4-46.3); Red Blood Count 5.26 M/uL (4.70-6.10); White Blood Count 13.50 K/ul (4.8-10.8)
[2025-01-30] MEDS ORDERED: Heparin IV Adult Wt-Based Low-Dose *NO* INITIAL Bolus Protocol IV ONE (19:00)
[2025-01-30] MEDS: HEPARIN 25000 UNIT/500 ML D5W 25,000 UNITS/500 ML BAG IV SCH (19:22)
[2025-01-30 19:27] LABS: INR 1.2 (0.9-1.1); Partial Thromboplastin Time 33 Seconds (21-31); Prothrombin Time 12.6 Seconds (9.0-12.0)
[2025-01-30] MEDS: MoRPHine SULFATE 2 MG/ML CARP IV PRN (19:50)
[2025-01-30] MEDS: METOPROLOL TARTRATE 1 MG/ML VIAL IV SCH (21:16)
[2025-01-31 02:14] LABS: Hematocrit (blood only) 43.8 % (42.0-52.0); Hemoglobin 14.8 g/dl (14.0-18.0); Immature Granulocytes # (auto) 0.05 K/uL (0.01-0.20); Immature Granulocytes % (auto) 0.4 %; Mean Corpuscular Hemoglobin 30.3 pg (25.0-34.0); Mean Corpuscular Volume 89.6 fL (80.0-100.0); Platelet Count 198 K/uL (130-400); RDW Standard Deviation 43.1 fL (36.4-46.3); Red Blood Count 4.89 M/uL (4.70-6.10); White Blood Count 12.47 K/ul (4.8-10.8)
[2025-01-31 02:29] LABS: Anion Gap 7.0 (3-11); Blood Urea Nitrogen 15.0 mg/dl (6-23); Calcium 8.5 mg/dl (8.6-10.3); Carbon Dioxide 24.0 mmol/L (21-32); Chloride 104.0 mmol/L (98-107); Creatinine Clr Calc Pharmacy 52.5 ml/min; Glucose 133.0 mg/dl (70-99(Fasting)); Magnesium 1.7 mg/dl (1.7-2.4); Potassium 4.2 mmol/L (3.5-5.1); Sodium 135.0 mmol/L (136-145)
[2025-01-31 02:42] LABS: ANTI-Xa, UFH(UnfractionatedHep 0.82 IU/ml (0.3-0.7)
[2025-01-31] MEDS: PANTOprazole 40 MG/10 ML SYR IV SCH (08:09)
--- NOTE | 2025-01-31 08:53 | Hospitalist Progress Note ---
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 Inital evaluation with WBC 15.[address] A/P with irregular sigmoid colon wall thickening with significant surrounding inflammation with extraluminal gas consistent with perforation, without signs of abscess - favors diverticulitis but differential includes perforated colon malignancy. Admitted for IV antibio tics and general surgery evaluation. #Suspected Diverticular Perforation without Abscess General Surgery consulted Keep NPO , bowel rest, start maintenance IV fluids Continue Zosyn IV acetaminophen for mild to moderate pain, morphine for moderate to severe pain Hold Eliquis - transition to heparin drip this evening (after Eliquis washout) in case need of procedure #Afib | HTN Eliquis held as above hold amlodipine, losartan, metoprolol with strict NPO Scheduled IV lopressor 5mg BID - can increase if flips into afib Hydralazine PRN HTN #Hx of CVA resume statin when no longer NPO I do not see an antiplatelet on his med list - note review suggest he should be on ASA, unable to find hx of GI bleed. Rec starting when no longer NPO #BPH with nocturia Follows with urology Resume flomax and finasteride when no longer NPO #GERD - PPI IV while NPO DVT proph: heparin drip Admission and Anticipated Discharge Date Admission Date: January 30, 2025 Subjective Patient has no complaints having no abdominal pain. No recent bowel movements. Did tolerate oral intake without much discomfort this was ice chips and sips Physical Exam Physical Exam: Abdomen is NABS soft nontender nondistended organomegaly no focal areas of tende rness or guarding Results & Data Results & Data Vital Signs (Past 12 Hours) Vital Signs Temp Pulse Pulse Resp BP BP Pulse Ox 01/31/25 08:09 82 140/67 01/31/25 07:56 79 01/31/25 07:34 98.4 F 82 20 140/67 97 01/31/25 03:09 97.5 F L 76 20 146/74 H 96 01/30/25 23:42 68 01/30/25 22:56 97.9 F 70 19 150/78 H 98 01/30/25 21:31 67 01/30/25 21:16 84 O2 Del Method 01/31/25 08:09 01/31/25 07:56 01/31/25 07:34 Room Air 01/31/25 03:09 Room Air 01/30/25 23:42 01/30/25 22:56 Room Air 01/30/25 21:31 01/30/25 21:16 Laboratory Results Reviewed CBC reviewed chemistry PG Care Time/CCT Total # of Minutes Spent Total Time Spent with Patient: Total time spent is greater than 50% in coordination of care (as documented) at patient's floor/unit and/or counseling patient: Coding Level of Care Code 42907 SUB INP/OBS CARE 3/50MIN Diagnoses Perforated diverticulum K57.80 Atrial fibrillation I48.91 Hemiparesis affecting right side as late effect of cerebrovascular accident I69.351 BPH w urinary obs/LUTS N40.1; N13.8"
--- NOTE | 2025-01-31 10:28 | Surgery Progress Note ---
<Statement entered by Loan Ricketts, DO - 01/31/25 10:35> I have seen and examined this patient with the surgical PUBLIC SAFETY TELECOMMUNICATOR. I agree with this plan. Date of Service January 31, 2025 Assessment & Plan (1) Perforated diverticulum: Plan: denies abd pain, TTP mu Lower abd quadrants VSS , afebrile, WBC downtrending COntinue IV abx and NPO possible sip/chips tomorrow pt seen and examined with Dr Ricketts Admission and Anticipated Discharge Date Admission Date: January 30, 2025 Subjective pt denies abd pain, n/v , f/c +flatus Review of Systems Constitutional: no fever and no chills Gastrointestinal: no abdominal pain, no nausea and no vomiting Physical Exam Constitutional: cooperative and comfortable; no acute distress Respiratory: normal respiratory effort and + respiratory distress; + not able to speak in complete sentence Cardiovascular: Rate/Rhythm: regular rate Gastrointestinal (Abdomen): Inspection/Auscultation: abdomen not distended Percussion/Palpation: + abdomen tender (RLQ, LLQ ) and abdomen soft Results & Data Vital Signs (Past 12 Hours) Vital Signs Temp Pulse Pulse Resp BP BP Pulse Ox 01/31/25 08:24 69 01/31/25 08:09 82 140/67 01/31/25 07:56 79 01/31/25 07:34 98.4 F 82 20 140/67 97 01/31/25 03:09 97.5 F L 76 20 146/74 H 96 01/30/25 23:42 68 01/30/25 22:56 97.9 F 70 19 150/78 H 98 O2 Del Method 01/31/25 08:24 01/31/25 08:09 01/31/25 07:56 01/31/25 07:34 Room Air 01/31/25 03:09 Room Air 01/30/25 23:42 01/30/25 22:56 Room Air Results CBC w Diff Results: RBC 4.89 M/uL (4.70-6.10) 01/31/25 WBC 12.47 K/ul (4.8-10.8) H 01/31/25 Hgb 14.8 g/dl (14.0-18.0) 01/31/25 Hct 43.8 % (42.0-52.0) 01/31/25 MCV 89.6 fL (80.0-100.0) 01/31/25 MCH 30.3 pg (25.0-34.0) 01/31/25 MCHC 33.8 g/dL (32.0-36.0) 01/31/25 RDW Standard Deviation 43.1 fL (36.4-46.3) 01/31/25 RDW Coefficient of Variation 13.1 % (11.5-14.5) 01/31/25 Plt Count 198 K/uL (130-400) 01/31/25 MPV 10.4 fL (9.4-12.4) 01/31/25 Neutrophils (%) (Auto) 80.5 % 01/31/25 Lymphocytes (%) (Auto) 8.7 % 01/31/25 Monocytes # (Auto) 1.26 K/uL (0.11-0.59) H 01/31/25 Eosinophils # (Auto) 0.01 K/uL (0.00-0.50) 01/31/25 Immature Granulocyte % (Auto) 0.4 % 01/31/25 Neutrophils # (Auto) 10.03 K/uL (1.40-6.50) H 01/31/25 Lymphocytes # (Auto) 1.09 K/uL (1.20-3.40) L 01/31/25 Monocytes # (Auto) 1.26 K/uL (0.11-0.59) H 01/31/25 Eosinophils # (Auto) 0.01 K/uL (0.00-0.50) 01/31/25 Basophils # (Auto) 0.03 K/uL (0.00-0.20) 01/31/25 Immature Granulocyte # (Auto) 0.05 K/uL (0.01-0.20) 5 PG Care Time/CCT Total # of Minutes Spent Total Time Spent with Patient: Total time spent is greater than 50% in coordination of care (as documented) at patient's floor/unit and/or counseling patient: Coding Level of Care Code 81002 SUB INP/OBS CARE 08/23MIN Diagnoses Perforated diverticulum K57.80
[2025-01-31 10:45] LABS: ANTI-Xa, UFH(UnfractionatedHep 0.57 IU/ml (0.3-0.7)
[2025-01-31] MEDS: ACETAMINOPHEN 1,000 MG/100 ML VIAL IV PRN (22:38)
[2025-02-01 06:20] LABS: ANTI-Xa, UFH(UnfractionatedHep 0.39 IU/ml (0.3-0.7)
[2025-02-01 08:05] LABS: Hematocrit (blood only) 44.4 % (42.0-52.0); Hemoglobin 14.6 g/dl (14.0-18.0); Immature Granulocytes # (auto) 0.03 K/uL (0.01-0.20); Immature Granulocytes % (auto) 0.3 %; Mean Corpuscular Hemoglobin 30.2 pg (25.0-34.0); Mean Corpuscular Volume 91.9 fL (80.0-100.0); Platelet Count 223 K/uL (130-400); RDW Standard Deviation 44.4 fL (36.4-46.3); Red Blood Count 4.83 M/uL (4.70-6.10); White Blood Count 9.39 K/ul (4.8-10.8)
[2025-02-01 08:14] LABS: Anion Gap 6.0 (3-11); Blood Urea Nitrogen 9.0 mg/dl (6-23); Calcium 8.5 mg/dl (8.6-10.3); Carbon Dioxide 23.0 mmol/L (21-32); Chloride 108.0 mmol/L (98-107); Creatinine Clr Calc Pharmacy 54.7 ml/min; Glucose 115.0 mg/dl (70-99(Fasting)); Potassium 4.2 mmol/L (3.5-5.1); Sodium 137.0 mmol/L (136-145)
--- NOTE | 2025-02-01 09:15 | Hospitalist Progress Note ---
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 Inital evaluation with WBC 15.[address] A/P with irregular sigmoid colon wall thickening with significant surrounding inflammation with extraluminal gas consistent with perforation, without signs of abscess - favors diverticulitis but differential includes perforated colon malignancy. Admitted for IV antibio tics and general surgery evaluation. #Suspected Diverticular Perforation without Abscess General Surgery following clear liquids, advance as tolerated Continue Zosyn-> will transition to po at dc IV acetaminophen for mild to moderate pain, morphine for moderate to severe pain Hold Eliquis - transition to heparin drip this evening (after Eliquis washout) will resume at dc #Afib | HTN Eliquis held as above hold amlodipine, losartan, metoprolol with strict NPO resume po lopressor Hydralazine PRN HTN #Hx of CVA I do not see an antiplatelet on his med list - note review suggest he should be on ASA, unable to find hx of GI bleed. Rec starting when no longer NPO #BPH with nocturia Follows with urology Resume flomax and finasteride #GERD - PPI IV w DVT proph: heparin drip Admission and Anticipated Discharge Date Admission Date: January 30, 2025 Subjective Patient has no complaints having no abdominal pain. No recent bowel movements. Did tolerate oral intake without much discomfort and will have diet advanced, stopping ivf and transitioning to po blood pressure medications Physical Exam Physical Exam: Abdomen is NABS soft nontender nondistended organomegaly no focal areas of tenderness or guarding Results & Data Results & Data Vital Signs (Past 12 Hours) Vital Signs Temp Pulse Pulse Resp BP Pulse Ox O2 Del Method 02/01/25 08:26 66 02/01/25 08:11 92 H 02/01/25 07:47 97.7 F 69 18 139/79 97 Room Air 02/01/25 03:01 97.5 F L 65 19 135/72 96 Room Air 01/31/25 23:02 97.5 F L 73 21 144/81 H 93 Room Air 01/31/25 23:00 66 01/31/25 21:16 65 Laboratory Results review cbc review chemistry PG Care Time/CCT Total # of Minutes Spent Total Time Spent with Patient: Total time spent is greater than 50% in coordination of care (as documented) at patient's floor/unit and/or counseling patient: Coding Level of Care Code 01810 SUB INP/OBS CARE 3/50MIN Diagnoses Perforated diverticulum K57.80 Atrial fibrillation I48.91 Hemiparesis affecting right side as late effect of cerebrovascular accident I69.351 BPH w urinary obs/LUTS N40.1; N13.8"
[2025-02-01] MEDS: METOPROLOL TARTRATE 25 MG TAB PO SCH (10:38)
--- NOTE | 2025-02-01 13:45 | Surgery Progress Note ---
<Statement entered by Loan Ricketts, - 02/01/25 13:52> I have seen and examined this patient this am with the surgical TREAD BUILDER. His abdominal examination is with some mild improvement and may trial sips of clears. Date of Service February 01, 2025 Assessment & Plan (1) Perforated diverticulum: Plan: Patient states abdominal pain has improved since time of admission. Denies any nausea or vomiting overnight VSS , afebrile, WBC downtrending 9.3 this morning Continue IV abx and will advance to clear liquids today Continue medical management per primary team, surgery will continue to follow Admission and Anticipated Discharge Date Admission Date: January 30, 2025 Subjective Patient seen evaluated early this morning, states that he is feeling well. He does still occasionally have left lower quadrant abdominal pain mostly with movement. Denies any nausea or vomiting Vital signs stable, afebrile, and WBC 9.3 this morning. Passing gas, however no BM Physical Exam Constitutional: WD/WN, vitals as above Respiratory: normal respiratory effort, lungs clear to auscultation Cardiovascular: Rate/Rhythm: regular rate Gastrointestinal (Abdomen): Abdomen soft, nondistended, +TTP in b/l lower quadrants (left greater than right) Skin: no rashes, warm and dry Results & Data Vital Signs (Past 12 Hours) Vital Signs Temp Pulse Pulse Resp BP Pulse Ox O2 Del Method 02/01/25 11:19 36.6 C 84 18 178/99 H 93 Room Air 02/01/25 08:26 66 02/01/25 08:11 92 H 02/01/25 07:47 36.5 C 69 18 139/79 97 Room Air 02/01/25 03:01 36.4 C L 65 19 135/72 96 Room Air PG Care Time/CCT Total # of Minutes Spent Total Time Spent with Patient: Total time spent is greater than 50% in coordination of care (as documented) at patient's floor/unit and/or counseling patient: [place] [address] SUB INP/OBS CARE 08/23MIN Patient Type Established History Problem Focused Exam Problem Focused Medical Decision Making Straight Forward Diagnoses Perforated diverticulum K57.80
[2025-02-01] MEDS: MELATONIN 3 MG TAB PO PRN (20:59)
[2025-02-02 06:48] LABS: ANTI-Xa, UFH(UnfractionatedHep 0.33 IU/ml (0.3-0.7)
[2025-02-02] MEDS: TAMSULOSIN HCL 0.4 MG CAP PO SCH (08:19)
[2025-02-02] MEDS: FINASTERIDE 5 MG TAB PO SCH (08:19)
[2025-02-02] MEDS ORDERED: METOPROLOL TARTRATE 1 MG/ML VIAL IV PRN (09:06)
[2025-02-02 09:09] LABS: Anion Gap 9.0 (3-11); Calcium 8.8 mg/dl (8.6-10.3); Carbon Dioxide 20.0 mmol/L (21-32); Chloride 107.0 mmol/L (98-107); Magnesium 1.7 mg/dl (1.7-2.4); Potassium 4.3 mmol/L (3.5-5.1); Sodium 136.0 mmol/L (136-145)
[2025-02-02 09:15] LABS: Blood Urea Nitrogen 8.0 mg/dl (6-23); Creatinine Clr Calc Pharmacy 48.6 ml/min; Glucose 98.0 mg/dl (70-99(Fasting))
[2025-02-02] MEDS: METOPROLOL TARTRATE 25 MG TAB PO ONE (09:25)
[2025-02-02 11:10] VITALS: RESP 60; TEMP 97.7; O2SAT 20
--- NOTE | 2025-02-02 13:11 | Surgery Progress Note ---
<Statement entered by Loan Ricketts DO - 02/02/25 15:54> I have seen and examined this patient this am. Dispo per medical service. Please reconsult surgery if needed. Date of Service February 02, 2025 Assessment & Plan (1) Diverticulitis: Plan: Patient here w/ diverticulitis with concern for perforation without well defined drainable abscess WBC downtrending. afebrile His pain is improved and he is tolerating a low fiber diet without worsening symptoms Home on po abx with outpatient CT scan to ensure ongoing improvement Admission and Anticipated Discharge Date Admission Date: January 30, 2025 Subjective Patient feeling well. Tolerating a diet. Pain improved Physical Exam Physical Exam: awake/alert no distress Gastrointestinal (Abdomen): Percussion/Palpation: abdomen soft improving abdominal pain in lower abdomen Results & Data Vital Signs (Past 12 Hours) Vital Signs Temp Pulse Pulse Resp BP BP Pulse Ox 02/02/25 11:09 97.7 F 60 H 127/74 20 L 02/02/25 09:28 02/02/25 09:01 144/88 H 02/02/25 08:01 97.5 F L 102 H 20 115/86 95 02/02/25 07:38 62 02/02/25 03:48 97.9 F 65 18 146/78 H 95 O2 Del Method 02/02/25 11:09 Room Air 02/02/25 09:28 Room Air 02/02/25 09:01 02/02/25 08:01 Room Air 02/02/25 07:38 02/02/25 03:48 Room Air PG Care Time/CCT Total # of Minutes Spent Total Time Spent with Patient: Total time spent is greater than 50% in coordination of care (as documented) at patient's floor/unit and/or counseling patient: Coding Level of Care Code 92241 SUB INP/OBS CARE 08/23MIN Diagnoses Diverticulitis K57.92
[2025-02-02 13:45] VITALS: BP 144/88
--- NOTE | 2025-02-02 13:51 | Discharge Summary ---
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 Inital evaluation with WBC 15.[address] A/P with irregular sigmoid colon wall thickening with significant surrounding inflammation with extraluminal gas consistent with perforation, without signs of abscess - favors diverticulitis but differential includes perforated colon malignancy. Admitted for IV antibiotics and general surgery evaluation. #Suspected Diverticular Perforation without Abscess Tolerated advancing diet without difficulty Continue Zosyn-> will transition to po Augmentin at dc Resume Eliquis at time of discharge Outpatient follow-up may consider additional imaging in the short-term future Primary care may consider referral for colonoscopy if patient is not had one in the recent past given the microperforation #Afib | HTN Eliquis amlodipine, losartan, metoprolol Did have small run of rapid rate while his metoprolol was being manipulated due to his n.p.o. status this resolved when turning to his home dosing #Hx of CVA I do not see an antiplatelet on his med list -patient states that discussion of aspirin with cardiology felt he would be appropriate just to be on apixaban #BPH with nocturia Follows with urology Resume flomax and finasteride Notes For Next Care Provider He patient has 0.5 cm lung nodule seen incidentally. 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 Pain started at 4Pm 7/3. No diet changes, had a piece of pie for lunch that day. No changes in bowel habits - takes miralax every other day. Thought he had a urinary tract infection because he normally gets up ~ 10 times per night and was up 10-15 times last night. Thinks he had chills around 8pm but did not take his temperature. Took all of his medicaitons this morning, but not last night. Normal state of health yesterday morning. Still with residual effects from stroke - use a walker and wheelchair at baseline. He wishes to be a full code ED course: Zosyn x1 NSS 500cc Discharge Exam Pleasant gentleman no apparent distress Abdomen is NABS soft he has no tenderness Cardiac exam is irregular but rate controlled Discharge Plan Discharge Items Patient Disposition: Home - Self-Care Reason For Visit: DUVERTICULAR PERFORATION Discharge Diagnosis: Diverticulitis with perforation Condition on Discharge: Fair Activity: Resume your previous activity Non-emergency contact: Primary Care Provider and Lean Consultant Call non-emergency contact if: you have any medication questions Follow-up/Referrals: Fabian Sullivan MD [Primary Care Provider] - 02/18/25 10:00 am (Hospital follow up scheduled February 18 at 10:00) Diet: Low Fiber Addtl Attending Provider Instructions: Please eat a low fiber diet for the next 5 days or so watch out for red flag symptoms of fever, increased abdominal pain or diarrhea, if so please seek medical evaluation complete antibiotics and follow up with your primary care to review your repeat CT scan to determine if you need a longer course of antibiotics please restart your apixiban the evening of 02/02/25 Addtl Yarn Examiner Skeins Provider Instructions: Mr Ventura there was a small speck. 0.[address] in your lung. that size typically would not require follow up, and usually is just a scar or area of injury from a previous lung infection, however I wanted you to know so that you and your family doctor can keep in in your records Pending Studies at Discharge: No Stand-Alone Forms: My [facility] [place], Smoking Cessation Medications and DC Order Prescriptions: New amoxicillin-pot clavulanate 875-125 mg tablet 1 tab PO BID Qty: 22 0RF Continued omeprazole 20 mg capsule,delayed release(DR/EC) 20 mg PO DAILY Qty: 90 3RF simvastatin 10 mg tablet 10 mg PO QPM Qty: 90 3RF amlodipine 5 mg tablet 5 mg PO DAILY Qty: 90 3RF apixaban 5 mg tablet 5 mg PO BID Qty: 180 3RF metoprolol tartrate 25 mg tablet 50 mg PO BID 14 Days Qty: 56 0RF finasteride 5 mg tablet 5 mg PO DAILY Qty: 90 3RF calcium carbonate-vitamin D3 600 mg(1,500mg) -200 unit tablet 1 tab PO DAILY Patient Comments: 01/30- otc unable to verify polyethylene glycol 3350 [ClearLax] 17 gram/dose powder 17 gm PO DAILY PRN (Reason: constipation) Patient Comments: 01/30- otc unable to verify docusate sodium 100 mg tablet 100 mg PO DAILY Qty: 180 Patient Comments: 01/30- otc unable to verify melatonin 10 mg capsule 10 mg PO HS PRN (Reason: Sleep) Patient Comments: 01/30- otc unable to verify Ocuvite Eye Plus Multi 200-15-150 mcg tablet 2 tab PO DAILY Patient Comments: 01/30- otc unable to verify Rx Instructions: administer with a meal and a large glass of water fluticasone propionate 50 mcg/actuation spray,suspension 1 - 2 spray intranasal DAILY Qty: 16 3RF Rx Instructions: USE 1 TO 2 SPRAYS IN EACH NOSTRIL ONCE DAILY tamsulosin 0.4 mg capsule 0 mg PO DAILY Patient Comments: 01/30-last filled 07/07/24 90 day supply #90 losartan 25 mg tablet 75 mg PO UD Rx Instructions: 25mg orally in Am, 50 mg orally pm; acetaminophen 500 mg Tablet 500 mg PO TID PRN (Reason: Pain/Fever) Patient Comments: 01/30- otc unable to verify Discharge Orders: Discharge Order (Routine); Ordered 02/02/25 Ordered By: Bryon Cruz Admission Data Admit Date/Time: 01/30/25 12:02 Attending Provider: Bryon Cruz Admit Provider: Nicolette Leung Primary Care Provider: Fabian Sullivan Other Providers: Owen Bond Kennita L.; Nicolette Leung Other Interventions: Discharge Summary Assessment (RN) Last Done: 02/02/25 13:43 Hospital Stay Data Consultations 01/30/25 11:06 ED Decision to Admit Stat 01/30/25 11:25 Consult General Surgery Routine 01/30/25 11:33 ED Decision to Admit Stat Diagnostic Imagining Performed 07/04/25 09:11 CT abd pelvis wo con Stat Pending Results Patient Have Any Pending Studies at Discharge: No Discharge Instructions Given to Patient (Per Discharging Provider) Please eat a low fiber diet for the next 5 days or so watch out for red flag symptoms of fever, increased abdominal pain or diarrhea, if so please seek medical evaluation complete antibiotics and follow up with your primary care to review your repeat CT scan to determine if you need a longer course of antibiotics please restart your apixiban the evening of 02/02/25 Total Time Total Time Spent Total Time Spent (In Minutes): It required greater than 30 minutes to prepare this patient for discharge. Coding Level of Care Code 70903 INP/OBS DISCH >30 MIN Diagnoses Perforated diverticulum K57.80 Atrial fibrillation I48.91 Hemiparesis affecting right side as late effect of cerebrovascular accident I69.351 BPH w urinary obs/LUTS N40.1; N13.8"
[2025-02-02 14:43] VITALS: PULSE 71
[2025-02-02] MEDS ORDERED: METOPROLOL TARTRATE 50 MG TAB PO SCH (21:00)
== END 2025-02-02 14:54 | disposition home or self-care (01) | DRG 392 ==
LOC: ED 08:55 → 4W 12:02 → SUATTDRO 12:02 → 4W 12:46